=== PATIENT | male | born 1955 | race Caucasian/White ===

== ENCOUNTER 2019-03-10 08:19 | Inpatient (IN) | payer BC ==
--- NOTE | 2019-03-10 08:34 | ED ---
HPI Diabetic - HPI Summary HPI Summary: The patient is a 64 y/o M presenting to [facility] arriving by ambulance as transfer from [facility] with a chief complaint of elevated blood glucose this morning since he woke up as well as chest tightness. When he woke up, he took his blood sugar, and it was around 400. He used medication to help lower the levels, as he usually has hypoglycemia. However, the glucose increased about 50 points after he slept for another 30 minutes, and he was nauseous. He then proceeded to go to the hospital, where his most recent glucose level was measured at 366 with ketones in the blood and a troponin of 0.97. He also has been having intermittent chest tightness for a few days (currently resolved), and some SOB today. He is not currently in any pain. He was given Heparin and Insulin en route and an NTG patch on the right shoulder. There were some T-wave inversions viewed on the EKG at [place]. Hx of HTN and DM, no HLD. - History Of Current Complaint Hx Obtained From: Patient Onset/Duration: Sudden Onset, Lasting Hours, Still Present Timing: Hours Severity Initially: Moderate Severity Currently: Moderate Character: Alert Aggravating: Nothing Alleviating: Nothing Associated Signs & Symptoms: Nausea, Shortness of Breath Related History: Compliant - Allergies/Home Medications Allergies/Adverse Reactions: Allergies Allergy/AdvReac Type Severity Reaction Status Date / Time No Known Allergies Allergy Verified 03/10/19 08:44 Home Medications: Home Medications Doxazosin TAB* [Cardura TAB*] 8 mg PO DAILY 03/10/19 [History Confirmed 03/10/19 ] Insulin Glargine (Nf) [Toujeo Solostar Pen (NF)] 90 unit SC QAM 03/10/19 [ History Confirmed 03/10/19] Levothyroxine Sodium [Levoxyl] 175 mcg PO QAM 03/10/19 [History Confirmed ] Valsartan [Valsartan 320 MG] 320 mg PO DAILY 03/10/19 [History Confirmed ] metFORMIN* [Glucophage 500 MG TAB *] 500 mg PO BID 03/10/19 [History Confirmed 03/10/19] PMH/Surg Hx/FS Hx/Imm Hx Endocrine/Hematology History: Reports: Hx Diabetes Cardiovascular History: Reports: Hx Hypertension Denies: Hx Hypercholesterolemia, Hx Myocardial Infarction - Family History Known Family History: Positive: Hypertension - Social History Hx Substance Use: No Hx Tobacco Use: No Do You Chew or Dip Tobacco: No Have You Chewed or Dipped Tobacco in the LAST YEAR: No Review of Systems Positive: Other - high blood glucose Positive: Chest Pain - tightness Positive: Shortness Of Breath Positive: Nausea All Other Systems Reviewed And Are Negative: Yes Physical Exam - Summary Physical Exam Summary: VITAL SIGNS: Reviewed. GENERAL: Patient is a well-developed and nourished male who is lying comfortable in the stretcher. Patient is not in any acute respiratory distress. HEAD AND FACE: No signs of trauma. No ecchymosis, hematomas or skull depressions. No sinus tenderness. EYES: PERRLA, EOMI x 2, No injected conjunctiva, no nystagmus. EARS: Hearing grossly intact. Ear canals and tympanic membranes are within normal limits. MOUTH: Oropharynx within normal limits. NECK: Supple, trachea is midline, no adenopathy, no JVD, no carotid bruit, no c- spine tenderness, neck with full ROM. CHEST: Symmetric, no tenderness at palpation LUNGS: Clear to auscultation bilaterally. No wheezing or crackles. CVS: Regular rate and rhythm, S1 and S2 present, no murmurs or gallops appreciated. ABDOMEN: Soft, non-tender. No signs of distention. No rebound no guarding, and no masses palpated. Bowel sounds are normal. EXTREMITIES: FROM in all major joints, no edema, no cyanosis or clubbing. NEURO: Alert and oriented x 3. No acute neurological deficits. Speech is normal and follows commands. SKIN: Dry and warm. Triage Information Reviewed: Yes Vital Signs Reviewed: Yes Diagnostics - Laboratory Result Diagrams: 03/10/19 08:54 03/10/19 13:45 Lab Statement: Any lab studies that have been ordered have been reviewed, and results considered in the medical decision making process. - Radiology CXR Radiology Interpretation Completed By: Radiologist Summary of Radiographic Findings: (from [facility]) No acute process. ED physician has reviewed this report. - EKG 0823 Cardiac Rate: NL - 96 BPM EKG Rhythm: Sinus Rhythm EKG Comparison: No Significant Change - Similar to EKG taken on 03/10/2019 at [facility] Summary of EKG Findings: T wave inversions in V2, V3, avF. ST depressions in V4 , V5, V6. No ST elevations. Re-Evaluation - Re-Evaluation First Eval Re-Evaluation Time: 10:15 Comment: I spoke with the patient concerning admission to the hospital based on findings of the patient's case. Diabetic Course/Dx - Course Assessment/Plan: This patient was transferred from [facility] with a diagnosis of DKA an increased troponin without any chest pain. Past medical history significant for insulin-dependent diabetes and hypertension. Chest x- ray impression at [facility]: No acute pathology. Blood work without any significant abnormality except for WBCs of 13.1, glucose of 429, BUN of 29, creatinine of 1.5, sodium of 127, chloride of 97, CO2 of 10, anion gap of 20, calcium of 8.8, troponin of 0.970, and he has small ketones. ABG Blood gas shows a pH of 7.11, PCO2 of 24. Patient was given IV fluids and insulin; he was placed on an insulin drip and a heparin drip. The patient also was given aspirin. At this time I discussed my physical exam, findings and test results from [place] with Dr. King from the intensive care unit and she will consult for this patient. At this point we will continue with the insulin drip and a heparin drip. I ordered blood work and will continue with IV fluids. Dr. King saw and examined patient and she recommends admission to the hospitalist. I discussed my physical exam, findings and test results with Dr. Melchor from the hospitalist services and he agrees to admit patient to his services. Patient is hemodynamically stable alert and oriented x 3. - Diagnoses Provider Diagnoses: DKA (diabetic ketoacidoses), Elevated troponin, NSTEMI (non-ST elevated myocardial infarction) - Physician Notifications Discussed Care Of Patient With: Monet King - department secretary Time Discussed With Above Provider: 08:40 Instructed by Provider To: Other - I discussed the patient with Dr. King due to findings at [facility] and [facility] thus far. Dr. King will come see the patient in the ED. In the ED at 1000, Dr. Young thinks it's best if the patient is admitted. I spoke with Dr. Melchor, hospitalist, at 1010, and he accepts the patient for admission. - Critical Care Time Critical Care Time: 75-104 min Discharge - Sign-Out/Discharge Documenting (check all that apply): Patient Departure - Patient is admitted to [facility] for further care by Dr. Melchor. Patient Received Moderate/Deep Sedation with Procedure: No - Discharge Plan Condition: Stable Disposition: ADMITTED TO [facility] - Billing Disposition and Condition Condition: STABLE Disposition: Admitted to [facility] - Attestation Statements Document Initiated by Valentina: Yes Documenting Scribe: Iveth Conley Provider For Whom Valentina is Documenting (Include Credential): Dr. Jhonny Power MD Scribe Attestation: Iveth Veronica scribed for Dr. Jhonny Power MD on 03/10/19 at 1548. Scribe Documentation Reviewed: Yes Provider Attestation: The documentation as recorded by the Iveth kapadia accurately reflects the service I personally performed and the decisions made by me, Dr. Jhonny Power MD Status of Scribe Document: Viewed
--- OUTSIDE RECORDS SUMMARY | 2019-03-10 08:34 | XMS REPORT | Continuity of Care Document ---
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 Payers Date Identification Numbers Payment Provider Subscriber Effective: 2007 Policy Number: [id number] [facility] Leroy Kimble Group Name: [facility] [address] PayID: [id number] [place] [address] Problems Active Problems Provider Date Type II diabetes mellitus uncontrolled Onset: 05/30/2012 Essential hypertension Onset: 05/30/2012 Benign essential hypertension Onset: 09/04/2011 Hypothyroidism Onset: 09/04/2011 Hyperlipidemia Onset: 09/04/2011 Resolved Problems Anemia Onset: 05/30/2012 Resolved: 12/22/2015 Atypical depressive disorder Onset: 05/30/2012 Resolved: 12/22/2015 Anxiety state Onset: 09/04/2011 Resolved: 12/22/2015 Family History Date Family Member(s) Observation Comments Father due to Diabetes () Mother due to Heart Disease () Social History Type Date Description Comments Sex Unknown Marital Status Lives With Occupation [employer] ETOH Use Occasionally consumes alcohol Tobacco Use Start: Unknown End: Unknown Patient is a former smoker Smoking Status Reviewed: 03/04/19 Patient is a former smoker Medications Active Medications SIG Qnty Indications Ordering Date Provider Metformin HCL 1 by mouth 60tabs E11.9 Igor 03/04/2019 500mg twice a day MD Nancy Tablets Vitamin Deficiency once monthly at 3units Igor 07/02/2018 Injectable System-B12 doctor's MD Nancy 1000mcg/ML Kit Doxazosin Mesylate 1 by mouth 30tabs I10 Igor 04/23/2018 8mg every day MD Nancy Tablets Valsartan 1 by mouth 90tabs I10 Igor 05/29/2017 320mg Tablets every day MD Nancy Cialis 1 as needed 6tabs N52.9 Igor 05/29/2017 20mg Tablets MD Nancy Todebbie Solostar 90 u daily, dx 27units E11.40 Igor 09/22/2015 e11.40, 90 day MD Nancy 300Unit/ML Solution supply Pen-Inject Onetouch Ultrasoft use to test 300units Igor 04/07/2015 Lancets blood glucose MD Nancy Misc three times a day and as needed Onetouch Ultra Blue test twice a 300units Igor 04/07/2015 day and as MD Nancy Strips needed Novolog Flexpen 6 units with 30ml E11.9 Igor 11/23/2011 each light MD Nancy 100Unit/ML Solution meal, 8 u with Pen-Inject heavy meals and also the sliding scale coverage, 90 day supply Levothyroxine Sodium take 1 tablet 90tabs E03.9 Igor 09/04/2011 by mouth once MD Nancy 175mcg Tablets daily History Medications Trulicity inject once a week 2units E11.40 Igor 04/23/2018 - MD Nancy 03/04/2019 0.75mg/0.5ML Solution Pen-Inject Viagra use as needed 8tabs N52.9 Igor 02/06/2017 - 100mg daily MD Nancy 05/29/2017 Tablets Azithromycin 2 now and 1 daily 6tabs J06.9 [place] 07/26/2016 - x 4 days MD Nancy 07/27/2016 250mg Tablets Doxazosin Mesylate 1 by mouth every 90tabs I10 Igor 04/27/2016 - day MD Nancy 04/23/2018 4mg Tablets Amoxicillin/Clavul 1 tid 30tabs J20.9 Igor 12/27/2015 - anate Potassium MD Nancy 07/27/2016 875-125mg Tablets Doxazosin Mesylate 1 by mouth every 30tabs I10 Igor 09/22/2015 - carolyn Cruz MD 04/27/2016 2mg Tablets Lisinopril-Hydroch take one tablet by 90tabs I10 Igor 04/07/2015 - lorothiazide mouth daily. MD Nancy 05/29/2017 20-25mg Tablets Bydureon inject 2 mg under 4units 250.02 Igor 12/08/2014 - 2mg Srer the skin once once MD Nancy 01/25/2015 weekly Potassium Chloride 1 twice a day 180tabs Igor 11/10/2014 - ER MD Nancy 05/29/2017 20Meq Tablets ER Lantus Solostar inject 40 units 5units E11.40 Igor 10/19/2014 - every morning and MD Nancy 09/22/2015 100Unit/ML 40 units every Solution evening Pen-Inject Doxazosin Mesylate 1 by mouth every 90tabs I10 Igor 08/03/2014 - day MD Nancy 09/22/2015 1mg Tablets Clotrimazole/Betam use three times a 45units 110.3 Igor 08/03/2014 - ethasone day until clear at MD Nancy 04/07/2015 Dipropionate least 2 weeks 1-0.05% Cream Lantus Solostar 45u in in the 25units 250.02 Igor 10/16/2012 - morning 50u in at MD Nancy 10/19/2014 100Unit/ML night Solution Pen-Inject Victoza 1.8 unit injection 250.02 Igor 08/28/2012 - 18mg/3ML subcutaneous every MD Nancy 01/01/2013 Solution morning Pen-Inject Metoprolol 1 po qd 90tabs 401.9 Igor 06/24/2012 - Succinate ER MD Nnacy 08/04/2013 50mg Tablets ER 24HR Levemir Flextouch 40 units at 15units 250.02 Igor 03/13/2012 - bedtime MD Nancy 10/16/2012 100Unit/ML Solution Pen-Inject Levemir Flextouch 20 units at hs 250.02 Igor 01/03/2012 - MD Nancy 03/13/2012 100Unit/ML Solution Pen-Inject Levemir Flextouch 10 units at hs 250.02 Igor 11/30/2011 - MD Nancy 01/03/2012 100Unit/ML Solution Pen-Inject Metformin HCL 1 po bid 60tabs 250.00 Igor 11/23/2011 - MD Nancy 11/30/2011 500mg Tablets Sertraline HCL 1 qd 90tabs 300.00 Igor 11/20/2011 - MD Nancy 08/04/2013 50mg Tablets Lisinopril-Hydroch take one tablet by 90tabs 401.9 Igor 09/04/2011 - lorothiazide mouth daily. MD Nancy 04/07/2015 20-25mg Tablets Ibuprofen take 1 tablet Unknown - 600mg three times a day 05/29/2017 Tablets if needed for pain Medications Administered in Office Medication SIG Qnty Indications Ordering Provider Date -12 Injection Nurse Schedule Loc 73 01/24/2019 Injection B12 Provided By Patient Igor Cruz MD 12/03/2018 Injection Immunizations CPT Code Status Date Vaccine Lot # [id number] Given 05/30/2018 Tdap - Tetanus/Diptheria/Acellular Pertussis 50452 Given 02/17/2013 Pneumonia Vaccine [id number] Given 10/29/2006 Tdap - Tetanus/Diptheria/Acellular Pertussis Vital Signs Date Vital Result Comment 03/04/2019 2:14pm Weight 204.00 lb BP Systolic 222 mmHg missed b/p med BP Diastolic 192 mmHg missed b/p med 03/03/2019 11:57am Weight 198.00 lb BP Systolic 184 mmHg BP Diastolic 120 mmHg 12/03/2018 4:05pm Weight 205.00 lb BP Systolic 168 mmHg BP Diastolic 88 mmHg 09/02/2018 4:33pm Weight 201.00 lb 05/30/2018 4:19pm Height 71.25 inches Weight 195.00 lb Heart Rate 64 /min BP Systolic 122 mmHg BP Diastolic 72 mmHg Respiratory Rate 16 /min BMI (Body Mass Index) 27.0 kg/m2 04/23/2018 4:09pm Weight 199.00 lb BP Systolic 150 mmHg BP Diastolic 86 mmHg 03/12/2018 4:13pm Weight 202.00 lb Heart Rate 72 /min BP Systolic 146 mmHg BP Diastolic 102 mmHg Respiratory Rate 16 /min 12/11/2017 3:55pm Weight 202.00 lb BP Systolic 170 mmHg BP Diastolic 92 mmHg 09/03/2017 5:13pm Weight 206.00 lb BP Systolic 186 mmHg BP Diastolic 112 mmHg 05/29/2017 4:28pm Height 71 inches Weight 204.00 lb Heart Rate 68 /min BP Systolic 138 mmHg BP Diastolic 96 mmHg Respiratory Rate 16 /min Body Temperature 96.7 F BMI (Body Mass Index) 28.4 kg/m2 02/06/2017 4:58pm Height 71 inches Weight 210.00 lb BP Systolic 120 mmHg BP Diastolic 88 mmHg BMI (Body Mass Index) 29.3 kg/m2 11/08/2016 4:05pm Weight 207.00 lb BP Systolic 150 mmHg BP Diastolic 90 mmHg 10/26/2016 4:08pm Weight 205.00 lb BP Systolic 120 mmHg BP Diastolic 90 mmHg 07/27/2016 3:51pm Weight 206.00 lb 07/26/2016 9:29am Weight 204.00 lb BP Systolic 140 mmHg BP Diastolic 90 mmHg Body Temperature 97.9 F 04/27/2016 3:36pm Height 71 inches Weight 202.00 lb Heart Rate 77 /min BP Systolic 140 mmHg BP Diastolic 90 mmHg Body Temperature 97.0 F BMI (Body Mass Index) 28.2 kg/m2 12/22/2015 4:15pm Weight 211.00 lb BP Systolic 138 mmHg BP Diastolic 88 mmHg 09/22/2015 4:09pm Weight 199.00 lb BP Systolic 128 mmHg BP Diastolic 94 mmHg 06/22/2015 4:31pm Weight 198.00 lb BP Systolic 140 mmHg BP Diastolic 88 mmHg 04/07/2015 4:06pm Height 70.50 inches Weight 188.00 lb Heart Rate 76 /min BP Systolic 120 mmHg BP Diastolic 86 mmHg Respiratory Rate 16 /min Body Temperature 97.8 F BMI (Body Mass Index) 26.6 kg/m2 02/25/2015 4:16pm Weight 191.00 lb BP Systolic 130 mmHg BP Diastolic 80 mmHg 01/25/2015 5:12pm Weight 194.00 lb BP Systolic 144 mmHg BP Diastolic 94 mmHg 12/23/2014 4:39pm Weight 198.00 lb BP Systolic 152 mmHg BP Diastolic 100 mmHg 12/08/2014 4:22pm Weight 199.00 lb BP Systolic 138 mmHg BP Diastolic 62 mmHg 11/04/2014 4:10pm Weight 201.00 lb BP Systolic 160 mmHg BP Diastolic 120 mmHg 08/03/2014 4:47pm Weight 201.00 lb BP Systolic 118 mmHg BP Diastolic 88 mmHg 04/06/2014 4:20pm Height 70.75 inches Weight 188.00 lb BP Systolic 120 mmHg BP Diastolic 70 mmHg BMI (Body Mass Index) 26.4 kg/m2 11/24/2013 5:04pm Weight 200.50 lb BP Systolic 130 mmHg BP Diastolic 102 mmHg 10/22/2013 4:31pm Weight 204.00 lb BP Systolic 154 mmHg BP Diastolic 118 mmHg 09/17/2013 4:53pm Weight 205.00 lb BP Systolic 140 mmHg BP Diastolic 102 mmHg 09/03/2013 4:20pm Weight 205.00 lb BP Systolic 140 mmHg BP Diastolic 90 mmHg 08/18/2013 4:20pm Weight 205.00 lb BP Systolic 180 mmHg BP Diastolic 110 mmHg 08/04/2013 5:15pm BP Systolic 150 mmHg BP Diastolic 110 mmHg 07/07/2013 4:50pm Weight 203.00 lb BP Systolic 138 mmHg BP Diastolic 80 mmHg 06/04/2013 4:23pm Weight 196.00 lb BP Systolic 110 mmHg BP Diastolic 80 mmHg 02/17/2013 3:24pm Height 71 inches Weight 194.00 lb Heart Rate 86 /min BP Systolic 110 mmHg BP Diastolic 88 mmHg Respiratory Rate 16 /min Body Temperature 97.4 F BMI (Body Mass Index) 27.1 kg/m2 02/11/2013 4:16pm Height 69.50 inches Weight 199.00 lb BP Systolic 130 mmHg BP Diastolic 80 mmHg BMI (Body Mass Index) 29.0 kg/m2 01/21/2013 4:07pm Height 69.50 inches Weight 196.00 lb BP Systolic 120 mmHg BP Diastolic 82 mmHg BMI (Body Mass Index) 28.5 kg/m2 11/20/2012 3:22pm Weight 187.00 lb 11/20/2012 3:22pm Weight 185.00 lb BP Systolic 110 mmHg BP Diastolic 80 mmHg 10/16/2012 4:24pm Height 69.50 inches Weight 186.00 lb BP Systolic 120 mmHg BP Diastolic 80 mmHg BMI (Body Mass Index) 27.1 kg/m2 09/11/2012 3:48pm Weight 185.00 lb BP Systolic 120 mmHg BP Diastolic 94 mmHg 08/28/2012 4:01pm Height 69.5 inches Weight 190.00 lb BP Systolic 160 mmHg BP Diastolic 100 mmHg BMI (Body Mass Index) 27.7 kg/m2 08/14/2012 3:37pm Weight 184.50 lb BP Systolic 110 mmHg BP Diastolic 82 mmHg 06/24/2012 3:20pm Height 71.25 inches Weight 189.50 lb BP Systolic 142 mmHg BP Diastolic 96 mmHg BMI (Body Mass Index) 26.2 kg/m2 03/13/2012 4:03pm Height 71.25 inches Weight 201.50 lb BP Systolic 138 mmHg BP Diastolic 92 mmHg BMI (Body Mass Index) 27.9 kg/m2 02/12/2012 3:28pm Height 71.25 inches Weight 206.00 lb BP Systolic 128 mmHg BP Diastolic 78 mmHg Body Temperature 96.3 F BMI (Body Mass Index) 28.5 kg/m2 01/03/2012 3:47pm Height 71 inches Weight 203.50 lb BP Systolic 126 mmHg BP Diastolic 84 mmHg BMI (Body Mass Index) 28.4 kg/m2 12/13/2011 3:57pm Height 71 inches Weight 203.50 lb BP Systolic 154 mmHg BP Diastolic 102 mmHg BMI (Body Mass Index) 28.4 kg/m2 11/30/2011 11:19am Height 71 inches Weight 199.50 lb BP Systolic 116 mmHg BP Diastolic 80 mmHg BMI (Body Mass Index) 27.8 kg/m2 11/23/2011 12:01pm Weight 194.50 lb BP Systolic 126 mmHg BP Diastolic 84 mmHg 11/20/2011 5:07pm Height 71 inches Weight 198.00 lb BP Systolic 112 mmHg BP Diastolic 92 mmHg BMI (Body Mass Index) 27.6 kg/m2 11/13/2011 3:55pm Height 71 inches Weight 201.50 lb BP Systolic 120 mmHg BP Diastolic 84 mmHg BMI (Body Mass Index) 28.1 kg/m2 Results Test Date Facility Test Result H/L Range Note Laboratory test 09/02/2018 N2N/CCD Import Glycohemoglobin 8.5 % High 4.2- 6.3 1, 2 finding (A1c) PSA ([place]oci) 7.35 ng/mL 3 Reflex add FT3? Y Reflex add FT4? Y Thyroid Stim Hormone 2.76 uIU/mL 0.3-4.2 Vitamin B12 87 pg/mL Low 193-986 Vitamin D,25-Hydroxy 31.5 ng/mL 30-100 4 eAG 197 mg/dL CBC 09/02/2018 N2N/CCD Import Hematocrit 46.0 % 38-48 Hemoglobin 16.1 gm/dL 12.8-17 Mean Cell Volume 86.8 fl 80-96 Mean Corpuscular HGB 30.4 pg 27-33 Mean Corpuscular HGB Conc 35.0 g/dL 31.7-36 Mean Platelet Volume 10.2 fL 6.6-10.6 Platelet Count 145 K/uL Low 155-360 Red Blood Count 5.30 M/uL 4.2-5.8 Red Cell Distri Width %CV 12.9 % 11.6-15.8 White Blood Count 5.7 K/uL 3.4-10.5 Comprehensive Metabolic Panel 09/02/2018 N2N/CCD Import Alb/Glob 0.8 ratio Albumin 3.5 g/dL 3.4-5 Alkaline Phosphatase 77 U/L 45-117 Anion Gap 5 mEq/L Low 8-16 BUN 13 mg/dL 7-18 BUN/Creat 14.4 ratio Bilirubin,Total 0.8 mg/dL 0.2-1 Calcium 8.2 mg/dL Low 8.5-10.1 Carbon Dioxide 29 mmol/L 21-32 Chloride 104 mmol/L 98-107 Creatinine 0.9 mg/dL 0.6-1.3 Globulin 4.3 g/dL 1.9-4.3 Glom Filtration Rate, Estimate >60 mL/min Glucose 122 mg/dL High 74-106 If >60 mL/min 5 Potassium 3.6 mmol/L 3.5-5.1 Reflex add FT3? Y Reflex add FT4? Y SGPT/Alt 21 U/L 12-78 Sgot/Ast 19 U/L 15-37 Sodium 138 mmol/L 136-145 Total Protein 7.8 g/dL 6.4-8.2 LDL Cholesterol Profile 09/02/2018 N2N/CCD Import Cholesterol 167 mg/dL 6 HDL Cholesterol 62 mg/dL 7 LDL-Cholesterol 81 mg/dL 8 Reflex add FT3? Y Reflex add FT4? Y Triglycerides 122 mg/dL 9 Microalbumin,Random Urine 09/02/2018 N2N/CCD Import Microalbumin,Urine 11.2 mg/L Laboratory test finding 08/30/2018 N2N/[facility] Import Source: Urine, 10 Clean Cat <See Note> Urine Bilirubin - Dipstick Negative Urine Blood Negative Urine Clarity Clear Urine Color Yellow Urine Glucose - Dipstick Negative mg/dL Urine Ketone Negative mg/dL Urine Leuk Esterase Negative Urine Nitrite - Dipstick Negative Urine PH 6.0 1 Low 6.5-7.5 Urine Protein - Dipstick Negative mg/dL Urine Specific [place] 1.020 1 1.01-1.03 Urine Urobilinogen - Dipstick 0.2 E.U./dL 0.2-1 Laboratory test finding 08/30/2018 N2N/CCD Import CK 184 U/L 39-308 11 Troponin-I 0.049 ng/mL 12 CBS W/Automated Diff 08/30/2018 N2N/CCD Import Bas% 0.4 % 0-1.1 Baso # 0.02 K/uL 0-0.1 Eo% 1.3 % 0-6.6 Eos # 0.07 K/uL 0-0.5 Hematocrit 42.8 % 38-48 Hemoglobin 15.0 gm/dL 12.8-17 Lymph # 1.20 K/uL 1-4 Lymph % 21.5 % 20-42 Mean Cell Volume 86.6 fl 80-96 Mean Corpuscular HGB 30.4 pg 27-33 Mean Corpuscular HGB Conc 35.0 g/dL 31.7-36 Mean Platelet Volume 10.2 fL 6.6-10.6 [place]ink[place] # 0.31 K/uL 0-0.8 [place] % 5.6 % 0-10 Neut# 3.97 K/uL 1.8-7 Neut% 71.2 % 33-73 Platelet Count 129 K/uL Low 155-360 Red Blood Count 4.94 M/uL 4.2-5.8 Red Cell Distri Width %CV 13.0 % 11.6-15.8 Red Cell Distri Width SD 39.6 fl 36-51 White Blood Count 5.6 K/uL 3.4-10.5 Comprehensive Metabolic Panel 08/30/2018 N2N/CCD Import Alb/Glob 0.8 ratio Albumin 3.3 g/dL Low 3.4-5 Alkaline Phosphatase 76 U/L 45-117 Anion Gap 6 mEq/L Low 8-16 BUN 10 mg/dL 7-18 BUN/Creat 11.1 ratio Bilirubin,Total 0.5 mg/dL 0.2-1 Calcium 8.1 mg/dL Low 8.5-10.1 Carbon Dioxide 26 mmol/L 21-32 Chloride 102 mmol/L 98-107 Creatinine 0.9 mg/dL 0.6-1.3 Globulin 4.4 g/dL High 1.9-4.3 Glom Filtration Rate, Estimate >60 mL/min Glucose 165 mg/dL High 74-106 If >60 mL/min 13 Potassium 3.5 mmol/L 3.5-5.1 SGPT/Alt 22 U/L 12-78 Sgot/Ast 23 U/L 15-37 Sodium 134 mmol/L Low 136-145 Total Protein 7.7 g/dL 6.4-8.2 Laboratory test 05/30/2018 N2N/CCD Import Glycohemoglobin 7.9 % High 4.2- 6.3 14, 15 finding (A1c) eAG 180 mg/dL Laboratory test 04/23/2018 N2N/CCD Import Glycohemoglobin 8.5 % High 4.2- 6.3 16, 17 finding (A1c) Prostate Specific Antigen 7.20 ng/mL 18 eAG 197 mg/dL Comprehensive Metabolic Panel 04/23/2018 N2N/CCD Import Alb/Glob 0.8 ratio Albumin 3.3 g/dL Low 3.4-5 Alkaline Phosphatase 72 U/L 45-117 Anion Gap 9 mEq/L 8-16 BUN 16 mg/dL 7-18 BUN/Creat 20.0 ratio Bilirubin,Total 0.6 mg/dL 0.2-1 Calcium 8.2 mg/dL Low 8.5-10.1 Carbon Dioxide 25 mmol/L 21-32 Chloride 105 mmol/L 98-107 Creatinine 0.8 mg/dL 0.6-1.3 Globulin 4.1 g/dL 1.9-4.3 Glom Filtration Rate, Estimate >60 mL/min Glucose 95 mg/dL 74-106 If >60 mL/min 19 Potassium 3.7 mmol/L 3.5-5.1 SGPT/Alt 26 U/L 12-78 Sgot/Ast 32 U/L 15-37 Sodium 139 mmol/L 136-145 Total Protein 7.4 g/dL 6.4-8.2 Vitamin B12 And 04/23/2018 N2N/CCD Import Folic Acid > 20.0 ng/mL High 3.1-17.5 Folate Vitamin B12 73 pg/mL Low 193-986 Laboratory test 03/12/2018 N2N/CCD Import Glycohemoglobin 8.4 % High 4.2- 6.3 20, 21 finding (A1c) eAG 194 mg/dL Comprehensive Metabolic Panel 03/12/2018 N2N/CCD Import Alb/Glob 0.9 ratio Albumin 3.5 g/dL 3.4-5 Alkaline Phosphatase 74 U/L 45-117 Anion Gap 6 mEq/L Low 8-16 BUN 14 mg/dL 7-18 BUN/Creat 20.0 ratio Bilirubin,Total 0.5 mg/dL 0.2-1 Calcium 8.4 mg/dL Low 8.5-10.1 Carbon Dioxide 28 mmol/L 21-32 Chloride 107 mmol/L 98-107 Creatinine 0.7 mg/dL 0.6-1.3 Globulin 4.1 g/dL 1.9-4.3 Glom Filtration Rate, Estimate >60 mL/min Glucose 71 mg/dL Low 74-106 If >60 mL/min 22 Potassium 3.5 mmol/L 3.5-5.1 SGPT/Alt 25 U/L 12-78 Sgot/Ast 25 U/L 15-37 Sodium 141 mmol/L 136-145 Total Protein 7.6 g/dL 6.4-8.2 Vitamin B12 And Folate 03/12/2018 N2N/CCD Import Folic Acid 17.4 ng/mL 3.1-17.5 Vitamin B12 < 60 pg/mL Low 193-986 Laboratory test 09/03/2017 N2N/CCD Import Glycohemoglobin 8.6 % High 4.2- 6.3 23, 24 finding (A1c) PSA ([place] Loci) 6.91 ng/mL 25 Reflex add FT4? Y Thyroid Stim Hormone 0.62 uIU/mL 0.3-4.2 Vitamin B12 < 60 pg/mL Low 193-986 eAG 200 mg/dL CBC 09/03/2017 N2N/CCD Import Hematocrit 43.7 % 38-48 Hemoglobin 15.4 gm/dL 12.8-17 Mean Cell Volume 83.1 fl 80-96 Mean Corpuscular HGB 29.3 pg 27-33 Mean Corpuscular HGB Conc 35.2 g/dL 31.7-36 Mean Platelet Volume 10.6 fL 6.6-10.6 Platelet Count 135 K/uL Low 150-400 Red Blood Count 5.26 M/uL 4.2-5.8 Red Cell Distri Width %CV 12.6 % 11.6-15.8 White Blood Count 5.9 K/uL 3.4-10.5 Comprehensive Metabolic Panel 09/03/2017 N2N/CCD Import Alb/Glob 0.8 ratio Albumin 3.4 g/dL 3.4-5 Alkaline Phosphatase 82 U/L 45-117 Anion Gap 7 mEq/L Low 8-16 BUN 11 mg/dL 7-18 BUN/Creat 15.7 ratio Bilirubin,Total 0.5 mg/dL 0.2-1 Calcium 8.4 mg/dL Low 8.5-10.1 Carbon Dioxide 26 mmol/L 21-32 Chloride 106 mmol/L 98-107 Creatinine 0.7 mg/dL 0.6-1.3 Globulin 4.4 g/dL High 1.9-4.3 Glom Filtration Rate, Estimate >60 mL/min Glucose 97 mg/dL 74-106 If >60 mL/min 26 Potassium 3.4 mmol/L Low 3.5-5.1 Reflex add FT4? Y SGPT/Alt 23 U/L 12-78 Sgot/Ast 21 U/L 15-37 Sodium 139 mmol/L 136-145 Total Protein 7.8 g/dL 6.4-8.2 LDL Cholesterol Profile 09/03/2017 N2N/CCD Import Cholesterol 151 mg/dL 27 HDL Cholesterol 53 mg/dL 28 LDL-Cholesterol 81 mg/dL 29 Reflex add FT4? Y Triglycerides 84 mg/dL 30 Microalbumin,Random 09/03/2017 N2N/[facility] Import Microalbumin,Urine 21.6 Urine mg/L Laboratory test finding 10/26/2016 N2N/CCD Import Glycohemoglobin (A1c) 7.9 % High 4.2 31, -6. 32 3 Thyroid Stim Hormone 1.76 uIU/mL 0.3-4.2 eAG 180 mg/dL Comprehensive Metabolic Panel 10/26/2016 N2N/[facility] Import Alb/Glob 0.8 ratio Albumin 3.4 g/dL 3.4-5 Alkaline Phosphatase 86 U/L 45-117 Anion Gap 5 mEq/L Low 8-16 BUN 17 mg/dL 7-18 BUN/Creat 17.0 ratio Bilirubin,Total 0.6 mg/dL 0.2-1 Calcium 8.3 mg/dL Low 8.5-10.1 Carbon Dioxide 32 mmol/L 21-32 Chloride 102 mmol/L 98-107 Creatinine 1.0 mg/dL 0.6-1.3 Globulin 4.4 g/dL High 1.9-4.3 Glom Filtration Rate, Estimate >60 mL/min Glucose 55 mg/dL Low 74-106 If >60 mL/min 33 Potassium 3.3 mmol/L Low 3.5-5.1 SGPT/Alt 20 U/L 12-78 Sgot/Ast 17 U/L 15-37 Sodium 139 mmol/L 136-145 Total Protein 7.8 g/dL 6.4-8.2 Microalbumin,Random Urine 10/26/2016 N2N/CCD Import Microalbumin,Urine 33.9 mg/L Laboratory test finding 07/26/2016 N2N/CCD Import @[facility] Pat Id: [id number] @[facility] Req #: [id number] 1 Glycohemoglobin (A1c) 8.6 % High 4.2-6.3 35 eAG 200 mg/dL Laboratory test 04/27/2016 N2N/CCD Import Glycohemoglobin (A1c) 9.0 % High 4.2-6.3 36 finding Microalbumin,Random Urine 20.7 mg/L eAG 212 mg/dL Comprehensive Metabolic Panel 04/27/2016 N2N/CCD Import Alb/Glob 0.8 ratio Albumin 3.5 g/dL 3.4-5 Alkaline Phosphatase 100 U/L 45-117 Anion Gap 6 mEq/L Low 8-16 BUN 10 mg/dL 7-18 BUN/Creat 11.1 ratio Bilirubin,Total 0.6 mg/dL 0.2-1 Calcium 8.2 mg/dL Low 8.5-10.1 Carbon Dioxide 29 mmol/L 21-32 Chloride 102 mmol/L 98-107 Creatinine 0.9 mg/dL 0.6-1.3 Globulin 4.5 g/dL High 1.9-4.3 Glom Filtration Rate, Estimate >60 mL/min Glucose 72 mg/dL Low 74-106 If >60 mL/min 37 Potassium 3.3 mmol/L Low 3.5-5.1 SGPT/Alt 24 U/L 12-78 Sgot/Ast 17 U/L 15-37 Sodium 137 mmol/L 136-145 Total Protein 8.0 g/dL 6.4-8.2 LDL Cholesterol Profile 04/27/2016 N2N/CCD Import Cholesterol 160 mg/dL 38 HDL Cholesterol 53 mg/dL 39 LDL-Cholesterol 92 mg/dL 40 Triglycerides 74 mg/dL 41 Laboratory test 06/22/2015 N2N/CCD Import Microalbumin,Random 13.0 mg/L finding Urine Laboratory test 06/22/2015 N2N/CCD Import Glycohemoglobin (A1c) 8.9 % High 4.2-6 42 finding .3 Vitamin B12 111 pg/mL Low 193-986 43 eAG 209 mg/dL CBC W/Automated Diff 06/22/2015 N2N/CCD Import Bas% 0.6 % 0.1-1 Baso # 0.03 K/uL Low 0.1-0.2 Eo% 5.4 % High 0-5 Eos # 0.29 K/uL 0-0.5 Hematocrit 43.0 % 38-48 Hemoglobin 15.1 gm/dL 12.8-17 Lymph # 1.42 K/uL Low 1.8-7 Lymph % 26.4 % 17-56 Mean Cell Volume 82.7 fl 80-96 Mean Corpuscular HGB 29.0 pg 27-33 Mean Corpuscular HGB Conc 35.1 g/dL 31.7-36 Mean Platelet Volume 10.3 fL 6.6-10.6 Winkler # 0.32 K/uL 0-0.8 Winkler % 6.0 % 0-10 Neut# 3.31 K/uL 1.8-7 Neut% 61.6 % 33-73 Platelet Count 140 K/uL Low 150-400 Red Blood Count 5.20 M/uL 4.2-5.8 Red Cell Distri Width %CV 14.1 % 11.6-15.8 Red Cell Distri Width SD 41.7 fl 36-51 White Blood Count 5.4 K/uL 3.4-10.5 Comprehensive Metabolic Panel 06/22/2015 N2N/CCD Import Alb/Glob 0.7 ratio Albumin 3.3 g/dL Low 3.4-5 Alkaline Phosphatase 80 U/L 45-117 Anion Gap 2 mEq/L Low 8-16 BUN 13 mg/dL 7-18 BUN/Creat 14.4 ratio Bilirubin,Total 0.4 mg/dL 0.2-1 Calcium 7.8 mg/dL Low 8.5-10.1 Carbon Dioxide 31 mmol/L 21-32 Chloride 104 mmol/L 98-107 Creatinine 0.9 mg/dL 0.6-1.3 Globulin 4.7 g/dL High 1.9-4.3 Glom Filtration Rate, Estimate >60 mL/min Glucose 69 mg/dL Low 74-106 If >60 mL/min 44 Potassium 3.4 mmol/L Low 3.5-5.1 SGPT/Alt 24 U/L 12-78 Sgot/Ast 20 U/L 15-37 Sodium 137 mmol/L 136-145 Total Protein 8.0 g/dL 6.4-8.2 LDL Cholesterol Profile 06/22/2015 N2N/CCD Import Cholesterol 170 mg/dL 45 HDL Cholesterol 55 mg/dL 46 LDL-Cholesterol 99 mg/dL 47 Triglycerides 82 mg/dL 48 Laboratory test 02/24/2015 N2N/CCD Import Glycohemoglobin (A1c) 8.7 % High 4.2-6.3 49 finding eAG 203 mg/dL Laboratory test 12/08/2014 N2N/CCD Import Glycohemoglobin (A1c) 8.9 % High 4.2-6.3 50 finding eAG 209 mg/dL Laboratory test 11/03/2014 N2N/CCD Import Glycohemoglobin (A1c) 10.4 % High 4.2-6.3 51 finding Microalbumin,Random Urine < 5.0 mg/L 52 Vitamin B12 115 pg/mL Low 193-986 53 eAG 252 mg/dL CBC W/Automated Diff 11/03/2014 N2N/CCD Import Bas% 0.4 % 0.1-1 Baso # 0.02 K/uL Low 0.1-0.2 Eo% 3.3 % 0-5 Eos # 0.16 K/uL 0-0.5 Hematocrit 37.5 % Low 38-48 Hemoglobin 13.3 gm/dL 12.8-17 Lymph # 1.34 K/uL 1.2-4 Lymph % 27.3 % 17-56 Mean Cell Volume 81.2 fl 80-96 Mean Corpuscular HGB 28.8 pg 27-33 Mean Corpuscular HGB Conc 35.5 g/dL 31.7-36 Mean Platelet Volume 10.5 fL 6.6-10.6 Winkler # 0.29 K/uL 0-0.6 Winkler % 5.9 % 0-10 Neut# 3.09 K/uL 1.8-7 Neut% 63.1 % 33-73 Platelet Count 120 K/uL Low 150-400 Red Blood Count 4.62 M/uL 4.2-5.8 Red Cell Distri Width %CV 13.0 % 11.6-15.8 Red Cell Distri Width SD 37.0 fl 36-51 White Blood Count 4.9 K/uL 3.4-10.5 Comprehensive Metabolic Panel 11/03/2014 [facility] Import Alb/Glob 0.9 ratio Albumin 3.6 g/dL 3.4-5 Alkaline Phosphatase 104 U/L 45-117 Anion Gap 6 mEq/L Low 8-16 BUN 12 mg/dL 7-18 BUN/Creat 13.3 ratio Bilirubin,Total 0.4 mg/dL 0.2-1 Calcium 8.5 mg/dL 8.5-10.1 Carbon Dioxide 31 mmol/L 21-32 Chloride 103 mmol/L 98-107 Creatinine 0.9 mg/dL 0.6-1.3 Globulin 4.1 g/dL 1.9-4.3 Glom Filtration Rate, Estimate >60 mL/min Glucose 93 mg/dL 74-106 If >60 mL/min 54 Potassium 3.3 mmol/L Low 3.5-5.1 SGPT/Alt 29 U/L 12-78 Sgot/Ast 20 U/L 15-37 Sodium 137 mmol/L 136-145 Total Protein 7.7 g/dL 6.4-8.2 LDL Cholesterol Profile 11/03/2014 [facility] Import Cholesterol 157 mg/dL 55 HDL Cholesterol 46 mg/dL 56 LDL-Cholesterol 99 mg/dL 57 Triglycerides 60 mg/dL 58 Laboratory test 04/06/2014 [facility] Import Glycohemoglobin (A1c) 8.4 % High 4.8-6 59 finding Prostate Specific Antigen 6.25 ng/mL High 0-4 60 eAG 194 mg/dL Comprehensive Metabolic Panel 04/06/2014 [facility] Import Alb/Glob 0.9 ratio Albumin 3.8 g/dL 3.5-5 Alkaline Phosphatase 104 U/L 50-136 Anion Gap 9 mEq/L 8-16 BUN 13 mg/dL 5-23 BUN/Creat 18.5 ratio Bilirubin,Total 0.6 mg/dL 0.2-1.2 Calcium 9.1 mg/dL 8.5-10.1 Carbon Dioxide 28 mEq/L 18-29 Chloride 106 mmol/L 98-107 Creatinine 0.7 mg/dL 0.5-1.4 Globulin 4.3 g/dL 1.9-4.3 Glom Filtration Rate, Estimate >60 mL/min Glucose 102 mg/dL 76-115 If >60 mL/min 61 Potassium 3.6 mmol/L 3.5-5.1 SGPT/Alt 32 U/L 30-65 Sgot/Ast 26 U/L 16-40 Sodium 139 mmol/L 136-145 Total Protein 8.1 g/dL High 6.3-8 LDL Cholesterol Profile 04/06/2014 [facility] Import Cholesterol 172 mg/dL 120-200 HDL Cholesterol 64 mg/dL 29-83 LDL-Cholesterol 101 mg/dL 62-185 Triglycerides 36 mg/dL 16-231 Laboratory 04/06/2014 N2N/CCD Import Microalbumin,Random 22.2 mg/L High 0 -18.5 test finding Urine Laboratory 03/12/2014 N2N/[facility] Import Act Partial Thrombo 33.6 s 23.9- 34.3 62 test finding Time Urinalysis 03/12/2014 N2N/[facility] Import Urine Bacteria Very Few With [place] Microscopic Urine Bilirubin - Dipstick Negative Urine Blood Large High Urine Clarity SL Cloudy Urine Color Red Urine Epithelial Cells Very Few [place]/lpf Urine Glucose - Dipstick >=1000 mg/dL High Urine Ketone Negative mg/dL Urine Leuk Esterase Negative Urine Nitrite - Dipstick Negative Urine PH 6.0 1 Low 6.5-7.5 Urine Protein - Dipstick Trace mg/dL Urine RBC TNTC rbc/hpf High 0-7 Urine Specific [place] 1.025 1 1.01-1.03 Urine Urobilinogen - Dipstick 0.2 E.U./dL 0.2-1 Urine WBC None Seen wbc/hpf 0-7 CBC W/Automated Diff 03/12/2014 N2N/[facility] Import Bas% 0.3 % 0.1-1 Baso # 0.02 K/uL Low 0.1-0.2 Eo% 2.8 % 0-5 Eos # 0.16 K/uL 0-0.5 Hematocrit 41.2 % 38-48 Hemoglobin 14.4 gm/dL 12.8-17 Lymph # 2.06 K/uL 1.2-4 Lymph % 36.0 % 17-56 Mean Cell Volume 81.3 fl 80-96 Mean Corpuscular HGB 28.4 pg 27-33 Mean Corpuscular HGB Conc 35.0 g/dL 31.7-36 Mean Platelet Volume 10.8 fL High 6.6-10.6 Winkler # 0.31 K/uL 0-0.6 Winkler % 5.4 % 0-10 Neut# 3.17 K/uL 1.8-7 Neut% 55.5 % 33-73 Platelet Count 125 K/uL Low 150-400 Red Blood Count 5.07 M/uL 4.2-5.8 Red Cell Distri Width %CV 12.5 % 11.6-15.8 Red Cell Distri Width SD 36.3 fl 36-51 White Blood Count 5.7 K/uL 3.4-10.5 Chlamydia/GC Karen, 03/12/2014 N2N/CCD Import Chlamydia Negative Urine Trachomatis,Ur -Karen Neisseria Gonorrhoeae,Ur -Karen Negative Urine note: See Note 63 Comprehensive Metabolic Panel 03/12/2014 N2N/CCD Import Alb/Glob 0.9 ratio Albumin 3.5 g/dL 3.5-5 Alkaline Phosphatase 105 U/L 50-136 Anion Gap 7 mEq/L Low 8-16 BUN 14 mg/dL 5-23 BUN/Creat 15.5 ratio Bilirubin,Total 0.3 mg/dL 0.2-1.2 Calcium 8.8 mg/dL 8.5-10.1 Carbon Dioxide 30 mEq/L High 18-29 Chloride 103 mmol/L 98-107 Creatinine 0.9 mg/dL 0.5-1.4 Globulin 4.0 g/dL 1.9-4.3 Glom Filtration Rate, Estimate >60 mL/min Glucose 342 mg/dL High 76-115 If >60 mL/min 64 Potassium 4.0 mmol/L 3.5-5.1 SGPT/Alt 27 U/L Low 30-65 Sgot/Ast 18 U/L 16-40 Sodium 136 mmol/L 136-145 Total Protein 7.5 g/dL 6.3-8 Protime 03/12/2014 N2N/CCD Import Inr 1.1 1 0.9-1.1 65 Protime 14.1 s 12.1-14.9 Laboratory test finding 03/12/2014 N2N/CCD Import Urine Culture See Note 66 Urine Screen See Note 67 Urine Screen 03/11/2014 N2N/CCD Import Urine Bilirubin - Dipstick Negative Urine Blood Negative Urine Clarity Clear Urine Color Yellow Urine Glucose - Dipstick >=1000 mg/dL High Urine Ketone Negative mg/dL Urine Leuk Esterase Negative Urine Nitrite - Dipstick Negative Urine PH 5.5 1 Low 6.5-7.5 Urine Protein - Dipstick Negative mg/dL Urine Specific [place] >=1.030 1.01-1.03 Urine Urobilinogen - Dipstick 0.2 E.U./dL 0.2-1 Comprehensive Metabolic Panel 03/11/2014 N2N/CCD Import Alb/Glob 0.9 ratio Albumin 3.5 g/dL 3.5-5 Alkaline Phosphatase 82 U/L 50-136 Anion Gap 5 mEq/L Low 8-16 BUN 12 mg/dL 5-23 BUN/Creat 13.3 ratio Bilirubin,Total 0.4 mg/dL 0.2-1.2 Calcium 8.7 mg/dL 8.5-10.1 Carbon Dioxide 30 mEq/L High 18-29 Chloride 106 mmol/L 98-107 Creatinine 0.9 mg/dL 0.5-1.4 Globulin 4.0 g/dL 1.9-4.3 Glom Filtration Rate, Estimate >60 mL/min Glucose 224 mg/dL High 76-115 If >60 mL/min 68 Potassium 4.0 mmol/L 3.5-5.1 SGPT/Alt 25 U/L Low 30-65 Sgot/Ast 18 U/L 16-40 Sodium 137 mmol/L 136-145 Total Protein 7.5 g/dL 6.3-8 CBC W/Automated Diff 03/11/2014 N2N/CCD Import Bas% 0.5 % 0.1-1 Baso # 0.03 K/uL Low 0.1-0.2 Eo% 2.3 % 0-5 Eos # 0.13 K/uL 0-0.5 Hematocrit 42.8 % 38-48 Hemoglobin 15.1 gm/dL 12.8-17 Lymph # 1.67 K/uL 1.2-4 Lymph % 30.1 % 17-56 Mean Cell Volume 81.5 fl 80-96 Mean Corpuscular HGB 28.8 pg 27-33 Mean Corpuscular HGB Conc 35.3 g/dL 31.7-36 Mean Platelet Volume 10.5 fL 6.6-10.6 Winkler # 0.32 K/uL 0-0.6 Winkler % 5.8 % 0-10 Neut# 3.40 K/uL 1.8-7 Neut% 61.3 % 33-73 Platelet Count 129 K/uL Low 150-400 Red Blood Count 5.25 M/uL 4.2-5.8 Red Cell Distri Width %CV 12.5 % 11.6-15.8 Red Cell Distri Width SD 36.7 fl 36-51 White Blood Count 5.6 K/uL 3.4-10.5 Comprehensive Metabolic Panel 10/21/2013 N2N/[facility] Import Alb/Glob 1.1 ratio Albumin 4.0 g/dL 3.5-5 Alkaline Phosphatase 94 U/L 50-136 Anion Gap 4 mEq/L Low 8-16 BUN 11 mg/dL 5-23 BUN/Creat 13.7 ratio Bilirubin,Total 0.4 mg/dL 0.2-1.2 Calcium 8.7 mg/dL 8.5-10.1 Carbon Dioxide 35 mEq/L High 18-29 Chloride 105 mmol/L 98-107 Creatinine 0.8 mg/dL 0.5-1.4 Globulin 3.8 g/dL 1.9-4.3 Glom Filtration Rate, Estimate >60 mL/min Glucose 54 mg/dL Low 76-115 If >60 mL/min 69 Potassium 3.7 mmol/L 3.5-5.1 SGPT/Alt 30 U/L 30-65 Sgot/Ast 16 U/L 16-40 Sodium 140 mmol/L 136-145 Total Protein 7.8 g/dL 6.3-8 Laboratory test 10/21/2013 N2N/[facility] Import Glycohemoglobin (A1c) 7.6 % High 4.8-6 70 finding Microalbumin,Random Urine 22.3 mg/L High 0-18.5 TSH Reflex FT4 and/or FT3 0.62 uIU/mL 0.49-4.67 71 eAG 171 mg/dL LDL Cholesterol Profile 10/21/2013 N2N/[facility] Import Cholesterol 155 mg/dL 120-200 HDL Cholesterol 52 mg/dL 29-83 LDL-Cholesterol 94 mg/dL 62-185 Triglycerides 47 mg/dL 16-231 Laboratory test 07/05/2013 N2N/[facility] Import Glycohemoglobin (A1c) 8.7 % High 4.8-6 72 finding Microalbumin,Random Urine 12.3 mg/L 0-18.5 eAG 203 mg/dL Comprehensive Metabolic Panel 07/05/2013 N2N/[facility] Import Alb/Glob 0.9 ratio Albumin 3.8 g/dL 3.5-5 Alkaline Phosphatase 99 U/L 50-136 Anion Gap 12 mEq/L 8-16 BUN 11 mg/dL 5-23 BUN/Creat 13.7 ratio Bilirubin,Total 0.4 mg/dL 0.2-1.2 Calcium 8.8 mg/dL 8.5-10.1 Carbon Dioxide 27 mEq/L 18-29 Chloride 105 mmol/L 98-107 Creatinine 0.8 mg/dL 0.5-1.4 Globulin 4.1 g/dL 1.9-4.3 Glom Filtration Rate, Estimate >60 mL/min Glucose 60 mg/dL Low 76-115 If >60 mL/min 73 Potassium 3.6 mmol/L 3.5-5.1 SGPT/Alt 33 U/L 30-65 Sgot/Ast 20 U/L 16-40 Sodium 140 mmol/L 136-145 Total Protein 7.9 g/dL 6.3-8 LDL Cholesterol Profile 07/05/2013 N2N/[facility] Import Cholesterol 184 mg/dL 120-200 HDL Cholesterol 62 mg/dL 29-83 LDL-Cholesterol 111 mg/dL 62-185 Triglycerides 57 mg/dL 16-231 Laboratory test 12/30/2012 N2N/[facility] Import Glycohemoglobin (A1c) 9.0 % High 4.8-6 74 finding Microalbumin,Random Urine 11.8 mg/L 0-18.5 Vitamin B12 161 pg/mL Low 200-900 eAG 212 mg/dL CBC W/Automated Diff 12/30/2012 N2N/[facility] Import Bas% 0.6 % 0.1-1 Baso # 0.03 K/uL Low 0.1-0.2 Eo% 3.7 % 0-5 Eos # 0.18 K/uL 0-0.5 Hematocrit 41.0 % 38-48 Hemoglobin 14.7 gm/dL 12.8-17 Lymph # 2.21 K/uL 1.2-4 Lymph % 45.7 % 17-56 Mean Cell Volume 81.5 fl 80-96 Mean Corpuscular HGB 29.2 pg 27-33 Mean Corpuscular HGB Conc 35.9 g/dL 31.7-36 Mean Platelet Volume 9.9 fL 6.6-10.6 Winkler # 0.30 K/uL 0-0.6 Winkler % 6.2 % 0-10 Neut# 2.12 K/uL 1.8-7 Neut% 43.8 % 33-73 Platelet Count 153 K/uL 150-400 Red Blood Count 5.03 M/uL 4.2-5.8 Red Cell Distri Width %CV 13.3 % 11.6-15.8 Red Cell Distri Width SD 38.4 fl 36-51 White Blood Count 4.8 K/uL 3.4-10.5 Comprehensive Metabolic Panel 12/30/2012 N2N/CCD Import Alb/Glob 1.0 ratio Albumin 4.0 g/dL 3.5-5 Alkaline Phosphatase 101 U/L 50-136 Anion Gap 10 mEq/L 8-16 BUN 15 mg/dL 5-23 BUN/Creat 18.7 ratio Bilirubin,Total 0.4 mg/dL 0.2-1.2 Calcium 9.1 mg/dL 8.5-10.1 Carbon Dioxide 31 mEq/L High 18-29 Chloride 104 mmol/L 98-107 Creatinine 0.8 mg/dL 0.5-1.4 Globulin 4.0 g/dL 1.9-4.3 Glom Filtration Rate, Estimate >60 mL/min Glucose 82 mg/dL 76-115 If >60 mL/min 75 Potassium 3.7 mmol/L 3.5-5.1 SGPT/Alt 28 U/L Low 30-65 Sgot/Ast 14 U/L Low 16-40 Sodium 141 mmol/L 136-145 Total Protein 8.0 g/dL 6.3-8 LDL Cholesterol Profile 12/30/2012 N2N/CCD Import Cholesterol 179 mg/dL 120-200 HDL Cholesterol 56 mg/dL 29-83 LDL-Cholesterol 114 mg/dL 62-185 Triglycerides 47 mg/dL 16-231 Vitamin B12 And 12/30/2012 N2N/CCD Import Folic Acid 15.8 ng/mL High 6- 15.4 Folate Laboratory test 08/13/2012 N2N/CCD Import Glycohemoglobin 12.0 % High 4.8 -6 76 finding (A1c) eAG 298 mg/dL Laboratory test 06/21/2012 N2N/CCD Import Glycohemoglobin (A1c) 11.3 % High 4.8-6 77 finding Thyroid Stim Hormone 2.75 uIU/mL 0.49-4.67 eAG 278 mg/dL CBS W/Automated Diff 06/21/2012 N2N/CCD Import Bas% 0.6 % 0.1-1 Baso # 0.03 K/uL Low 0.1-0.2 Eo% 1.2 % 0-5 Eos # 0.06 K/uL 0-0.5 Hematocrit 41.3 % 38-48 Hemoglobin 14.9 gm/dL 12.8-17 Lymph # 1.68 K/uL 1.2-4 Lymph % 34.7 % 17-56 Mean Cell Volume 81.8 fl 80-96 Mean Corpuscular HGB 29.5 pg 27-33 Mean Corpuscular HGB Conc 36.1 g/dL High 31.7-36 Mean Platelet Volume 11.3 fL High 6.6-10.6 Winkler # 0.31 K/uL 0-0.6 Winkler % 6.4 % 0-10 Neut# 2.76 K/uL 1.8-7 Neut% 57.1 % 33-73 Platelet Count 160 K/uL 150-400 Red Blood Count 5.05 M/uL 4.2-5.8 Red Cell Distri Width %CV 13.0 % 11.6-15.8 Red Cell Distri Width SD 37.8 fl 36-51 White Blood Count 4.8 K/uL 3.4-10.5 Comprehensive Metabolic Panel 06/21/2012 N2N/CCD Import Alb/Glob 0.9 ratio Albumin 3.8 g/dL 3.5-5 Alkaline Phosphatase 111 U/L 50-136 Anion Gap 12 mEq/L 8-16 BUN 17 mg/dL 5-23 BUN/Creat 21.2 ratio Bilirubin,Total 0.5 mg/dL 0.2-1.2 Calcium 9.2 mg/dL 8.5-10.1 Carbon Dioxide 27 mEq/L 18-29 Chloride 100 mmol/L 98-107 Creatinine 0.8 mg/dL 0.5-1.4 Globulin 4.2 g/dL 1.9-4.3 Glom Filtration Rate, Estimate >60 mL/min Glucose 249 mg/dL High 76-115 If >60 mL/min 78 Potassium 3.4 mmol/L Low 3.5-5.1 SGPT/Alt 27 U/L Low 30-65 Sgot/Ast 10 U/L Low 16-40 Sodium 136 mmol/L 136-145 Total Protein 8.0 g/dL 6.3-8 LDL Cholesterol Profile 06/21/2012 N2N/CCD Import Cholesterol 169 mg/dL 120-200 HDL Cholesterol 41 mg/dL 29-83 LDL-Cholesterol 115 mg/dL 62-185 Triglycerides 66 mg/dL 16-231 Vitamin B12 And Folate 06/21/2012 N2N/CCD Import Folic Acid 15.4 ng/mL 6 -15.4 Vitamin B12 210 pg/mL 200-900 79 Laboratory test 01/02/2012 N2N/CCD Import Glycohemoglobin (A1c) 9.9 % High 4.8-6 80 finding eAG 237 mg/dL Laboratory test finding 11/23/2011 N2N/CCD Import 2 Hour GTT See Note mg/ dL 81 Glucose,2 HR Post Glucola See Note 82 Glycohemoglobin (A1c) 11.7 % High 4.8-6 83 eAG 289 mg/dL LDL Cholesterol 11/10/2011 N2N/CCD Import Cholesterol 227 mg/dL High 120- 200 Profile HDL Cholesterol 44 mg/dL 29-83 LDL-Cholesterol 156 mg/dL 62-185 Triglycerides 136 mg/dL 16-231 1 D51.0 Z12.5 E11.40 I10 E03.9 Z00.01 2 Elevated levels of HbA1c suggest the need for more aggressive treatment of glycemia. The [place] [employer] recommends that a primary goal of therapy should be a HbA1c of <7% and that physicians should re-evaluate the treatment regimen in patients with HbA1c values consistently >8%. 3 THIS ASSAY IS NOT INTENDED A CANCER SCREENING TEST The concentration of PSA in a given specimen, determined with assays from different manufacturers, can vary due to differences in assay methods and reagent specificity. Values obtained from different assay methods cannot be used interchangeably. Method: Siemens Dimension Kidder Chemiluminescent immunoassay. 4 Vitamin D deficiency has been defined by the [place] [employer] and an Endocrine Society practice guideline as a level of serum 25-OH vitamin D less than 20 ng/mL (1,2). The Endocrine Society went on to further define vitamin D insufficiency as a level between 21 and 29 ng/mL (2). 1. IOM ([place] [employer]). 2010. Dietary reference intakes for calcium and D. [place]: The National Academies Press. 2. Mitesh MF, Adolfo CAMPOS, Lilly KOTHARI, et al. Evaluation, treatment, and prevention of vitamin D deficiency: an Endocrine Society clinical practice guideline. JCEM. 2010; 96(7):1911-30. Performed at: RN - [facility] [address] [id number] Vice President & General Manager [employer] [place] [employer]: Sara Hunter MD, Phone: [phone] 5 Note: Persistent reduction for 3 months or more in an eGFR <60 mL/min/1.73 m2 defines CKD. Patients with eGFR values >/=60 mL/min/1.73 m2 may also have CKD if evidence of persistent proteinuria is present. The original MDRD equation for estimated GFR is not valid for patients less than 18 years of age. Additional information may be found at [email or web address]. 6 Reference Guidelines*: Desirable: ........... < 200 mg/dL Borderline High: ..... 200-239 mg/dL High: ................ >=240 mg/dL * The National Cholesterol Education Program (NCEP) 7 Reference Guidelines*: Low HDL: ..... < 40 mg/dL Normal: ..... 40-60 mg/dL Desirable: ... > 60 mg/dL *The National Cholesterol Education Program(NCEP) 8 Reference Guidelines*: Optimal:........... <100 mg/dL Near Optimal....... 100-129 mg/dL Borderline High.... 130-159 mg/dL High............... 160-189 mg/dL Very High.......... >=190 mg/dL * Source: National Cholesterol Education Program (NCEP) 9 Reference Guidelines*: Normal: ............. < 150 mg/dL Borderline High: .... 150-199 mg/dL High: ............... 200-499 mg/dL Very High: .......... > 500 mg/dL * Source: National Cholesterol Education Program (NCEP) 10 URINE, CLEAN CATCH 11 DIABETIC 12 0.0 - 0.045 ng/mL: Normal 0.046 - 0.5 ng/mL: Suggestive 0.6 - 1.5 ng/mL: Consistent 13 Note: Persistent reduction for 3 months or more in an eGFR <60 mL/min/1.73 m2 defines CKD. Patients with eGFR values >/=60 mL/min/1.73 m2 may also have CKD if evidence of persistent proteinuria is present. The original MDRD equation for estimated GFR is not valid for patients less than 18 years of age. Additional information may be found at [email or web address]. 14 E11.40 15 Elevated levels of HbA1c suggest the need for more aggressive treatment of glycemia. The [place] [employer] recommends that a primary goal of therapy should be a HbA1c of <7% and that physicians should re-evaluate the treatment regimen in patients with HbA1c values consistently >8%. 16 E11.40,R97.20 17 Elevated levels of HbA1c suggest the need for more aggressive treatment of glycemia. The [place] [employer] recommends that a primary goal of therapy should be a HbA1c of <7% and that physicians should re-evaluate the treatment regimen in patients with HbA1c values consistently >8%. 18 THIS ASSAY IS NOT INTENDED A CANCER SCREENING TEST The concentration of PSA in a given specimen, determined with assays from different manufacturers, can vary due to differences in assay methods and reagent specificity. Values obtained from different assay methods cannot be used interchangeably. Method: VasoGenixta Chemiluminescent immunoassay. 19 Note: Persistent reduction for 3 months or more in an eGFR <60 mL/min/1.73 m2 defines CKD. Patients with eGFR values >/=60 mL/min/1.73 m2 may also have CKD if evidence of persistent proteinuria is present. The original MDRD equation for estimated GFR is not valid for patients less than 18 years of age. Additional information may be found at [email or web address]. 20 E11.40, D51.9 21 Elevated levels of HbA1c suggest the need for more aggressive treatment of glycemia. The [place] [employer] recommends that a primary goal of therapy should be a HbA1c of <7% and that physicians should re-evaluate the treatment regimen in patients with HbA1c values consistently >8%. 22 Note: Persistent reduction for 3 months or more in an eGFR <60 mL/min/1.73 m2 defines CKD. Patients with eGFR values >/=60 mL/min/1.73 m2 may also have CKD if evidence of persistent proteinuria is present. The original MDRD equation for estimated GFR is not valid for patients less than 18 years of age. Additional information may be found at [email or web address]. 23 Z12.5 E11.40 I10 D51.0 E03.9 24 Elevated levels of HbA1c suggest the need for more aggressive treatment of glycemia. The [place] [employer] recommends that a primary goal of therapy should be a HbA1c of <7% and that physicians should re-evaluate the treatment regimen in patients with HbA1c values consistently >8%. 25 THIS ASSAY IS NOT INTENDED A CANCER SCREENING TEST The concentration of PSA in a given specimen, determined with assays from different manufacturers, can vary due to differences in assay methods and reagent specificity. Values obtained from different assay methods cannot be used interchangeably. Method: VasoGenixta Chemiluminescent immunoassay. 26 Note: Persistent reduction for 3 months or more in an eGFR <60 mL/min/1.73 m2 defines CKD. Patients with eGFR values >/=60 mL/min/1.73 m2 may also have CKD if evidence of persistent proteinuria is present. The original MDRD equation for estimated GFR is not valid for patients less than 18 years of age. Additional information may be found at [email or web address]. 27 Reference Guidelines*: Desirable: ........... < 200 mg/dL Borderline High: ..... 200-239 mg/dL High: ................ >=240 mg/dL * The National Cholesterol Education Program (NCEP) 28 Reference Guidelines*: Low HDL: ..... < 40 mg/dL Normal: ..... 40-60 mg/dL Desirable: ... > 60 mg/dL *The National Cholesterol Education Program(NCEP) 29 Reference Guidelines*: Optimal:........... <100 mg/dL Near Optimal....... 100-129 mg/dL Borderline High.... 130-159 mg/dL High............... 160-189 mg/dL Very High.......... >=190 mg/dL * Source: National Cholesterol Education Program (NCEP) 30 Reference Guidelines*: Normal: ............. < 150 mg/dL Borderline High: .... 150-199 mg/dL High: ............... 200-499 mg/dL Very High: .......... > 500 mg/dL * Source: National Cholesterol Education Program (NCEP) 31 E11.40,E03.9 32 Elevated levels of HbA1c suggest the need for more aggressive treatment of glycemia. The [place] [employer] recommends that a primary goal of therapy should be a HbA1c of <7% and that physicians should re-evaluate the treatment regimen in patients with HbA1c values consistently >8%. 33 Note: Persistent reduction for 3 months or more in an eGFR <60 mL/min/1.73 m2 defines CKD. Patients with eGFR values >/=60 mL/min/1.73 m2 may also have CKD if evidence of persistent proteinuria is present. The original MDRD equation for estimated GFR is not valid for patients less than 18 years of age. Additional information may be found at [email or web address]. 34 E11.40,E03.9,D51.0 35 Elevated levels of HbA1c suggest the need for more aggressive treatment of glycemia. The [place] [employer] recommends that a primary goal of therapy should be a HbA1c of <7% and that physicians should re-evaluate the treatment regimen in patients with HbA1c values consistently >8%. 36 Elevated levels of HbA1c suggest the need for more aggressive treatment of glycemia. The [place] [employer] recommends that a primary goal of therapy should be a HbA1c of <7% and that physicians should re-evaluate the treatment regimen in patients with HbA1c values consistently >8%. 37 Note: Persistent reduction for 3 months or more in an eGFR <60 mL/min/1.73 m2 defines CKD. Patients with eGFR values >/=60 mL/min/1.73 m2 may also have CKD if evidence of persistent proteinuria is present. The original MDRD equation for estimated GFR is not valid for patients less than 18 years of age. Additional information may be found at [email or web address]. 38 Reference Guidelines*: Desirable: ........... < 200 mg/dL Borderline High: ..... 200-239 mg/dL High: ................ >=240 mg/dL * The National Cholesterol Education Program (NCEP) 39 Reference Guidelines*: Low HDL: ..... < 40 mg/dL Normal: ..... 40-60 mg/dL Desirable: ... > 60 mg/dL *The National Cholesterol Education Program(NCEP) 40 Reference Guidelines*: Optimal:........... <100 mg/dL Near Optimal....... 100-129 mg/dL Borderline High.... 130-159 mg/dL High............... 160-189 mg/dL Very High.......... >=190 mg/dL * Source: National Cholesterol Education Program (NCEP) 41 Reference Guidelines*: Normal: ............. < 150 mg/dL Borderline High: .... 150-199 mg/dL High: ............... 200-499 mg/dL Very High: .......... > 500 mg/dL * Source: National Cholesterol Education Program (NCEP) 42 Elevated levels of HbA1c suggest the need for more aggressive treatment of glycemia. The [place] [employer] recommends that a primary goal of therapy should be a HbA1c of <7% and that physicians should re-evaluate the treatment regimen in patients with HbA1c values consistently >8%. 43 QUERY: Is the Patient Fasting? Y 44 Note: Persistent reduction for 3 months or more in an eGFR <60 mL/min/1.73 m2 defines CKD. Patients with eGFR values >/=60 mL/min/1.73 m2 may also have CKD if evidence of persistent proteinuria is present. The original MDRD equation for estimated GFR is not valid for patients less than 18 years of age. Additional information may be found at www.[email or web address]. 45 Reference Guidelines*: Desirable: ........... < 200 mg/dL Borderline High: ..... 200-239 mg/dL High: ................ >=240 mg/dL * The National Cholesterol Education Program (NCEP) 46 Reference Guidelines*: Low HDL: ..... < 40 mg/dL Normal: ..... 40-60 mg/dL Desirable: ... > 60 mg/dL *The National Cholesterol Education Program(NCEP) 47 Reference Guidelines*: Optimal:........... <100 mg/dL Near Optimal....... 100-129 mg/dL Borderline High.... 130-159 mg/dL High............... 160-189 mg/dL Very High.......... >=190 mg/dL * Source: National Cholesterol Education Program (NCEP) 48 Reference Guidelines*: Normal: ............. < 150 mg/dL Borderline High: .... 150-199 mg/dL High: ............... 200-499 mg/dL Very High: .......... > 500 mg/dL * Source: National Cholesterol Education Program (NCEP) 49 Elevated levels of HbA1c suggest the need for more aggressive treatment of glycemia. The [place] [employer] recommends that a primary goal of therapy should be a HbA1c of <7% and that physicians should re-evaluate the treatment regimen in patients with HbA1c values consistently >8%. 50 Elevated levels of HbA1c suggest the need for more aggressive treatment of glycemia. The [place] [employer] recommends that a primary goal of therapy should be a HbA1c of <7% and that physicians should re-evaluate the treatment regimen in patients with HbA1c values consistently >8%. 51 Elevated levels of HbA1c suggest the need for more aggressive treatment of glycemia. The [place] [employer] recommends that a primary goal of therapy should be a HbA1c of <7% and that physicians should re-evaluate the treatment regimen in patients with HbA1c values consistently >8%. 52 PT FASTING SINCE 530AM BUT HAD TO TAKE GLUCOSE TABLETS AROUND 2PM 53 NOTE CHANGE IN B12 REFERENCE RANGE 54 Note: Persistent reduction for 3 months or more in an eGFR <60 mL/min/1.73 m2 defines CKD. Patients with eGFR values >/=60 mL/min/1.73 m2 may also have CKD if evidence of persistent proteinuria is present. The original MDRD equation for estimated GFR is not valid for patients less than 18 years of age. Additional information may be found at [email or web address]. 55 Reference Guidelines*: Desirable: ........... < 200 mg/dL Borderline High: ..... 200-239 mg/dL High: ................ >=240 mg/dL * The National Cholesterol Education Program (NCEP) 56 Reference Guidelines*: Low HDL: ..... < 40 mg/dL Normal: ..... 40-60 mg/dL Desirable: ... > 60 mg/dL *The National Cholesterol Education Program(NCEP) 57 Reference Guidelines*: Optimal:........... <100 mg/dL Near Optimal....... 100-129 mg/dL Borderline High.... 130-159 mg/dL High............... 160-189 mg/dL Very High.......... >=190 mg/dL * Source: National Cholesterol Education Program (NCEP) 58 Reference Guidelines*: Normal: ............. < 150 mg/dL Borderline High: .... 150-199 mg/dL High: ............... 200-499 mg/dL Very High: .......... > 500 mg/dL * Source: National Cholesterol Education Program (NCEP) 59 A1c value between 5.7% and 6.4% is considered at increased risk for diabetes. A1c value greater than 6.5 % is considered essentially diagnostic for Type II diabetes. Current guidelines recommend a treatment goal of <7% for diabetic patients. This method will measure glycosylated hemoglobin variants, HbS, HbG, HbH, HbWayne, HbC, HbE, etc. Other hemoglobin- opathies may give incorrect results with this test. 60 THIS ASSAY IS NOT INTENDED A CANCER SCREENING TEST The concentration of PSA in a given specimen, determined with assays from different manufacturers, can vary due to differences in assay methods and reagent specificity. Values obtained from different assay methods cannot be used interchangeably. 61 Note: Persistent reduction for 3 months or more in an eGFR <60 mL/min/1.73 m2 defines CKD. Patients with eGFR values >/=60 mL/min/1.73 m2 may also have CKD if evidence of persistent proteinuria is present. The original MDRD equation for estimated GFR is not valid for patients less than 18 years of age. Additional information may be found at www.[email or web address]. 62 Is patient on anticoagulants? None QUERY: Anticoagulant Therapy? QUERY: Date of Last Dose: QUERY: Time of Last Dose: 63 Acceptable specimens for this test are male urethral swab, endocervical swab and liquid based pap specimens, vaginal swabs in APTIMA transports and first void urine. See online Directory of Services for test number for rectal and pharyngeal specimens. Performed at: RN - [facility] [address] [id number] Vice President & General Manager [employer] [place]: Sara Hunter MD, Phone: [phone] 64 Note: Persistent reduction for 3 months or more in an eGFR <60 mL/min/1.73 m2 defines CKD. Patients with eGFR values >/=60 mL/min/1.73 m2 may also have CKD if evidence of persistent proteinuria is present. The original MDRD equation for estimated GFR is not valid for patients less than 18 years of age. Additional information may be found at www.kdoqi.org. 65 THERAPEUTIC INR RANGE: 2.0 - 3.0 DVT, Pulmonary embolus, prophylaxis against venous thrombosis or systemic embolization in high risk patients. 2.5 - 3.5 Mechanical heart valves 66 NO GROWTH: FINAL REPORT 67 03/12/14 LAB.[facility] Deleted by [facility] 68 Note: Persistent reduction for 3 months or more in an eGFR <60 mL/min/1.73 m2 defines CKD. Patients with eGFR values >/=60 mL/min/1.73 m2 may also have CKD if evidence of persistent proteinuria is present. The original MDRD equation for estimated GFR is not valid for patients less than 18 years of age. Additional information may be found at www.[email or web address]. 69 Note: Persistent reduction for 3 months or more in an eGFR <60 mL/min/1.73 m2 defines CKD. Patients with eGFR values >/=60 mL/min/1.73 m2 may also have CKD if evidence of persistent proteinuria is present. The original MDRD equation for estimated GFR is not valid for patients less than 18 years of age. Additional information may be found at www.[email or web address]. 70 A1c value between 5.7% and 6.4% is considered at increased risk for diabetes. A1c value greater than 6.5 % is considered essentially diagnostic for Type II diabetes. Current guidelines recommend a treatment goal of <7% for diabetic patients. This method will measure glycosylated hemoglobin variants, HbS, HbG, HbH, HbWayne, HbC, HbE, etc. Other hemoglobin- opathies may give incorrect results with this test. 71 QUERY: Reflex add FT3? Y QUERY: Reflex add FT4? Y 72 A1c value between 5.7% and 6.4% is considered at increased risk for diabetes. A1c value greater than 6.5 % is considered essentially diagnostic for Type II diabetes. Current guidelines recommend a treatment goal of <7% for diabetic patients. This method will measure glycosylated hemoglobin variants, HbS, HbG, HbH, HbWayne, HbC, HbE, etc. Other hemoglobin- opathies may give incorrect results with this test. 73 Note: Persistent reduction for 3 months or more in an eGFR <60 mL/min/1.73 m2 defines CKD. Patients with eGFR values >/=60 mL/min/1.73 m2 may also have CKD if evidence of persistent proteinuria is present. The original MDRD equation for estimated GFR is not valid for patients less than 18 years of age. Additional information may be found at www.[email or web address]. 74 A1c value between 5.7% and 6.4% is considered at increased risk for diabetes. A1c value greater than 6.5 % is considered essentially diagnostic for Type II diabetes. Current guidelines recommend a treatment goal of <7% for diabetic patients. This method will measure glycosylated hemoglobin variants, HbS, HbG, HbH, HbWayne, HbC, HbE, etc. Other hemoglobin- opathies may give incorrect results with this test. 75 Note: Persistent reduction for 3 months or more in an eGFR <60 mL/min/1.73 m2 defines CKD. Patients with eGFR values >/=60 mL/min/1.73 m2 may also have CKD if evidence of persistent proteinuria is present. The original MDRD equation for estimated GFR is not valid for patients less than 18 years of age. Additional information may be found at www.[email or web address]. 76 A1c value between 5.7% and 6.4% is considered at increased risk for diabetes. A1c value greater than 6.5 % is considered essentially diagnostic for Type II diabetes. Current guidelines recommend a treatment goal of <7% for diabetic patients. This method will measure glycosylated hemoglobin variants, HbS, HbG, HbH, HbWayne, HbC, HbE, etc. Other hemoglobin- opathies may give incorrect results with this test. 77 A1c value between 5.7% and 6.4% is considered at increased risk for diabetes. A1c value greater than 6.5 % is considered essentially diagnostic for Type II diabetes. Current guidelines recommend a treatment goal of <7% for diabetic patients. This method will measure glycosylated hemoglobin variants, HbS, HbG, HbH, HbWayne, HbC, HbE, etc. Other hemoglobin- opathies may give incorrect results with this test. 78 Note: Persistent reduction for 3 months or more in an eGFR <60 mL/min/1.73 m2 defines CKD. Patients with eGFR values >/=60 mL/min/1.73 m2 may also have CKD if evidence of persistent proteinuria is present. The original MDRD equation for estimated GFR is not valid for patients less than 18 years of age. Additional information may be found at www.[email or web address]. 79 Borderline result. Homocysteine and Methylmalonic acid should be considered for values greater than 200 pg/mL and less that 400 pg/mL. 80 A1c value between 5.7% and 6.4% is considered at increased risk for diabetes. A1c value greater than 6.5 % is considered essentially diagnostic for Type II diabetes. Current guidelines recommend a treatment goal of <7% for diabetic patients. This method will measure glycosylated hemoglobin variants, HbS, HbG, HbH, HbWayne, HbC, HbE, etc. Other hemoglobin- opathies may give incorrect results with this test. 81 Glucose, Fast 322 (*H) mg/dL 1/2 Hr Glucose 439 (*H) mg/dL 1 Hr Glucose 539 (*H) mg/dL 2 Hr Glucose 490 (*H) ng/dL FAST URINE GLU 1/2 (H) % FAST URINE KET MODERATE 1/2HR URINE GLU >1 % 1/2HR URINE KET LARGE 1HR URINE GLU >=1 (H) % 1HR URINE KET MODERATE 2HR URINE GLU >=1 % 2HR URINE KET MODERATE 82 11/23/11 LAB.[facility] WRONG TEST 83 A1c value between 5.7% and 6.4% is considered at increased risk for diabetes. A1c value greater than 6.5 % is considered essentially diagnostic for Type II diabetes. Current guidelines recommend a treatment goal of <7% for diabetic patients. This method will measure glycosylated hemoglobin variants, HbS, HbG, HbH, HbWayne, HbC, HbE, etc. Other hemoglobin- opathies may give incorrect results with this test. Procedures Date Code Description Status 01/24/2019 64124 Admin Of Inj Completed 12/03/2018 07834 Admin Of Inj Completed 09/02/2018 11536 Admin Of Inj Completed 07/09/2018 [id number] Colonoscopy Completed 07/09/2018 20709 Colonoscopy Flexible Diagnostic Completed 05/30/2018 50980 Admin Of Inj Completed 03/12/2018 58268 Admin Of Inj Completed 10/09/2017 97659 Admin Of Inj Completed 05/29/2017 49805 Admin Of Inj Completed 02/06/2017 30549 Admin Of Inj Completed 10/26/2016 75472 Admin Of Inj Completed 04/27/2016 02846 Visual funct screen test, automated Completed 04/27/2016 57194 Pure Tone Hearing Test, Air Completed 12/27/2015 49499 Admin Of Inj Completed 08/03/2014 66710 Admin Of Inj Completed 04/06/2014 57984 Pure Tone Hearing Test, Air Completed 04/06/2014 90290 Visual funct screen test, automated Completed 08/04/2013 40991 Admin Of Inj Completed 02/17/2013 69785 Pure Tone-Air Condition Only Completed 06/26/2012 82997 Admin Of Inj Completed 02/12/2012 58475 Pure Tone-Air Condition Only Completed 02/12/2012 99466 Visual funct screen test, automated Completed 09/18/2011 60174 Admin Of Inj Completed 07/17/2011 10263 Admin Of Inj Completed 04/03/2011 68454 Admin Of Inj Completed 10/26/2010 15883 Admin Of Inj Completed 09/01/2010 55701 Visual funct screen test, automated Completed 09/01/2010 73467 Admin Of Inj Completed 09/01/2010 76198 Pure Tone-Air Condition Only Completed 07/22/2010 36988 Admin Of Inj Completed 04/21/2010 27665 Admin Of Inj Completed 12/29/2009 22351 Admin Of Inj Completed 09/29/2009 15258 Admin Of Inj Completed 09/01/2009 27748 Admin Of Inj Completed 08/25/2009 20480 Visual funct screen test, automated Completed 08/25/2009 70392 Pure Tone-Air Condition Only Completed 08/17/2008 94431 Screening Vision Test Completed 08/17/2008 51998 Pure Tone-Air Condition Only Completed Encounters Type Date Location Provider Dx Diagnosis Office Visit 12/03/2018 [facility] Igor E11.9 Type 2 diabetes 4:00p MD Nancy mellitus without complications R97.20 Elevated prostate specific antigen [PSA] D51.9 Vitamin B12 deficiency anemia, unspecified Plan of Treatment Future Appointment(s):03/27/2019 3:45 pm - Igor Cruz MD at [facility]06/02/2019 4:00 pm - Igor Cruz MD at [facility] - Igor Cruz MDE11.9 Type 2 diabetes mellitus without complicationsNew Medication:Metformin HCL 500 mg - 1 by mouth twice a day
--- OUTSIDE RECORDS SUMMARY | 2019-03-10 08:35 | XMS REPORT | Continuity of Care Document ---
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 Use Occasionally consumes alcohol Tobacco Use Start: Unknown End: Unknown Patient is a former smoker Smoking Status Reviewed: 03/03/19 Patient is a former smoker Medications Active Medications SIG Qnty Indications Ordering Date Provider Vitamin Deficiency once monthly at 3units Igor 07/02/2018 Injectable System-B12 doctor's MD Nancy 1000mcg/ML Kit Doxazosin Mesylate 1 by mouth 30tabs I10 Igor 04/23/2018 8mg every day MD Nancy Tablets Trulicity inject once a 2units E11.40 04/23/2018 0.75mg/0.5ML week MD Nancy Solution Pen-Inject Valsartan 1 by mouth 90tabs I10 05/29/2017 320mg Tablets every day MD Nancy Cialis 1 as needed 6tabs N52.9 05/29/2017 20mg Tablets MD Nancy Toujeo Solostar 95 u daily, dx 27units E11.40 09/22/2015 e11.40, 90 day MD Nancy 300Unit/ML Solution supply Pen-Inject Onetouch Ultrasoft use to test 300units Igor 04/07/2015 Lancets blood glucose MD Nancy Misc three times a day and as needed Onetouch Ultra Blue test twice a 300units 04/07/2015 day and as MD Nancy Strips needed Novolog Flexpen 6 units with 30ml E11.9 11/23/2011 each light MD Nancy 100Unit/ML Solution meal, 8 u with Pen-Inject heavy meals and also the sliding scale coverage, 90 day supply Levothyroxine Sodium take 1 tablet 90tabs E03.9 Igor 09/04/2011 by mouth once MD Nancy 175mcg Tablets daily History Medications Viagra use as needed 8tabs N52.9 Igor 02/06/2017 - 100mg daily MD Nancy 05/29/2017 Tablets Azithromycin 2 now and 1 daily 6tabs J06.9 Igor 07/26/2016 - x 4 days MD Nancy 07/27/2016 250mg Tablets Doxazosin Mesylate 1 by mouth every 90tabs I10 Igor 04/27/2016 - day MD Nancy 04/23/2018 4mg Tablets Amoxicillin/Clavul 1 tid 30tabs J20.9 Igor 12/27/2015 - anate Potassium MD Nancy 07/27/2016 875-125mg Tablets Doxazosin Mesylate 1 by mouth every 30tabs I10 Igor 09/22/2015 - day MD Nancy 04/27/2016 2mg Tablets Lisinopril-Hydroch take one tablet [...] 401.9 Igor 06/24/2012 - Succinate ER MD Nancy 08/04/2013 50mg Tablets ER 24HR Levemir Flextouch [...] Medication SIG Qnty Indications Ordering Provider Date B-12 Injection Nurse Schedule Loc 73 01/24/2019 Injection B12 Provided By Patient Igor Cruz MD 12/03/2018 Injection Immunizations CPT Code Status Date Vaccine Lot # [id number] Given 05/30/2018 Tdap - Tetanus/Diptheria/Acellular Pertussis 50809 Given 02/17/2013 Pneumonia Vaccine 79604 Given 10/29/2006 Tdap - Tetanus/Diptheria/Acellular Pertussis Vital Signs Date Vital Result Comment 03/03/2019 11:57am Weight 198.00 lb BP Systolic [...] 4.2- 6.3 1, 2 finding (A1c) PSA ([place]) 7.35 ng/mL 3 Reflex add FT3? [...] Microalbumin,Urine 11.2 mg/L Laboratory test finding 08/30/2018 N2N/CCD Import Source: Urine, 10 Clean Cat <See Note> Urine Bilirubin - Dipstick Negative Urine Blood Negative Urine Clarity Clear Urine Color Yellow Urine Glucose - Dipstick Negative mg/dL Urine Ketone Negative mg/dL Urine Leuk Esterase Negative Urine Nitrite - Dipstick Negative Urine PH 6.0 1 Low 6.5-7.5 Urine Protein - Dipstick Negative mg/dL Urine Specific [place] 1.020 1 1.01-1.03 Urine Urobilinogen - Dipstick [...] 31.7-36 Mean Platelet Volume 10.2 fL 6.6-10.6 [place] # 0.31 K/uL 0-0.8 [place] % 5.6 % 0-10 Neut# 3.97 K/uL [...] 4.2- 6.3 23, 24 finding (A1c) PSA ([place]) 6.91 ng/mL 25 Reflex add FT4? [...] Y Triglycerides 84 mg/dL 30 Microalbumin,Random 09/03/2017 N2N/CCD Import Microalbumin,Urine 21.6 Urine mg/L Laboratory test finding 10/26/2016 N2N/CCD Import Glycohemoglobin (A1c) 7.9 % High 4.2 31, -6. 32 3 Thyroid Stim Hormone 1.76 uIU/mL 0.3-4.2 eAG 180 mg/dL Comprehensive Metabolic Panel 10/26/2016 N2N/CCD Import Alb/Glob 0.8 ratio Albumin 3.4 [...] mg/L Laboratory test finding 07/26/2016 N2N/CCD Import @[facility] Pat Id: [id number] @[facility] Req #: [id number] 1 Glycohemoglobin (A1c) 8.6 % High 4.2-6.3 [...] 31.7-36 Mean Platelet Volume 10.3 fL 6.6-10.6 [place] # 0.32 K/uL 0-0.8 [place] % 6.0 % 0-10 Neut# 3.31 K/uL [...] 31.7-36 Mean Platelet Volume 10.5 fL 6.6-10.6 [place] # 0.29 K/uL 0-0.6 [place] % 5.9 % 0-10 Neut# 3.09 K/uL 1.8-7 Neut% 63.1 % 33-73 Platelet Count 120 K/uL Low 150-400 Red Blood Count 4.62 M/uL 4.2-5.8 Red Cell Distri Width %CV 13.0 % 11.6-15.8 Red Cell Distri Width SD 37.0 fl 36-51 White Blood Count 4.9 K/uL 3.4-10.5 Comprehensive Metabolic Panel 11/03/2014 N2N/CCD Import Alb/Glob 0.9 ratio Albumin 3.6 g/dL [...] 7.7 g/dL 6.4-8.2 LDL Cholesterol Profile 11/03/2014 N2N/CCD Import Cholesterol 157 mg/dL 55 HDL Cholesterol 46 mg/dL 56 LDL-Cholesterol 99 mg/dL 57 Triglycerides 60 mg/dL 58 Laboratory test 04/06/2014 N2N/CCD Import Glycohemoglobin (A1c) 8.4 % High 4.8-6 59 finding Prostate Specific Antigen 6.25 ng/mL High 0-4 60 eAG 194 mg/dL Comprehensive Metabolic Panel 04/06/2014 N2N/CCD Import Alb/Glob 0.9 ratio Albumin 3.8 [...] g/dL High 6.3-8 LDL Cholesterol Profile 04/06/2014 N2N/[facility]le[facility] Import Cholesterol 172 mg/dL 120-200 HDL Cholesterol 64 mg/dL 29-83 LDL-Cholesterol 101 mg/dL 62-185 Triglycerides 36 mg/dL 16-231 Laboratory 04/06/2014 N2N/[facility] Import Microalbumin,Random 22.2 mg/L High 0 -18.5 test finding Urine Laboratory 03/12/2014N/[facility] Import Act Partial Thrombo 33.6 s 23.9- 34.3 62 test finding Time Urinalysis 03/12/2014N/[facility] Import Urine Bacteria Very Few With [place] [...] RBC TNTC rbc/hpf High 0-7 Urine Specific [place] 1.025 1 1.01-1.03 Urine Urobilinogen - Dipstick 0.2 E.U./dL 0.2-1 Urine WBC None Seen wbc/hpf 0-7 CBC W/Automated Diff 03/12/2014/Circle[facility] Import Bas% 0.3 % 0.1-1 Baso # [...] Mean Platelet Volume 10.8 fL High 6.6-10.6 [place] # 0.31 K/uL 0-0.6 [place] % 5.4 % 0-10 Neut# 3.17 K/uL [...] Protein - Dipstick Negative mg/dL Urine Specific [place] >=1.030 1.01-1.03 Urine Urobilinogen - Dipstick 0.2 [...] 31.7-36 Mean Platelet Volume 10.5 fL 6.6-10.6 [place] # 0.32 K/uL 0-0.6 [place] % 5.8 % 0-10 Neut# 3.40 K/uL 1.8-7 Neut% 61.3 % 33-73 Platelet Count 129 K/uL Low 150-400 Red Blood Count 5.25 M/uL 4.2-5.8 Red Cell Distri Width %CV 12.5 % 11.6-15.8 Red Cell Distri Width SD 36.7 fl 36-51 White Blood Count 5.6 K/uL 3.4-10.5 Comprehensive Metabolic Panel 10/21/2013 N2N/CCD Import Alb/Glob 1.1 ratio Albumin 4.0 g/dL [...] Protein 7.8 g/dL 6.3-8 Laboratory test 10/21/2013 N2N/CCD Import Glycohemoglobin (A1c) 7.6 % High 4.8-6 70 finding Microalbumin,Random Urine 22.3 mg/L High 0-18.5 TSH Reflex FT4 and/or FT3 0.62 uIU/mL 0.49-4.67 71 eAG 171 mg/dL LDL Cholesterol Profile 10/21/2013 N2N/CCD Import Cholesterol 155 mg/dL 120-200 HDL Cholesterol 52 mg/dL 29-83 LDL-Cholesterol 94 mg/dL 62-185 Triglycerides 47 mg/dL 16-231 Laboratory test 07/05/2013 N2N/CCD Import Glycohemoglobin (A1c) 8.7 % High 4.8-6 72 finding Microalbumin,Random Urine 12.3 mg/L 0-18.5 eAG 203 mg/dL Comprehensive Metabolic Panel 07/05/2013 N2N/CCD Import Alb/Glob 0.9 ratio Albumin 3.8 [...] 7.9 g/dL 6.3-8 LDL Cholesterol Profile 07/05/2013 N2N/CCD Import Cholesterol 184 mg/dL 120-200 HDL Cholesterol 62 mg/dL 29-83 LDL-Cholesterol 111 mg/dL 62-185 Triglycerides 57 mg/dL 16-231 Laboratory test 12/30/2012 N2N/CCD Import Glycohemoglobin (A1c) 9.0 % High 4.8-6 74 finding Microalbumin,Random Urine 11.8 mg/L 0-18.5 Vitamin B12 161 pg/mL Low 200-900 eAG 212 mg/dL CBC W/Automated Diff 12/30/2012 N2N/CCD Import Bas% 0.6 % 0.1-1 Baso [...] 31.7-36 Mean Platelet Volume 9.9 fL 6.6-10.6 [place] # 0.30 K/uL 0-0.6 [place] % 6.2 % 0-10 Neut# 2.12 K/uL [...] Mean Platelet Volume 11.3 fL High 6.6-10.6 [place] # 0.31 K/uL 0-0.6 [place] % 6.4 % 0-10 Neut# 2.76 K/uL [...] for more aggressive treatment of glycemia. The [place] Diabetes Association recommends that a primary goal [...] cannot be used interchangeably. Method: Siemens Dimension [place] Chemiluminescent immunoassay. 4 Vitamin D deficiency has been defined by the [employer] and an Endocrine Society practice guideline as a level of serum 25-OH vitamin D less than 20 ng/mL (1,2). The Endocrine Society went on to further define vitamin D insufficiency as a level between 21 and 29 ng/mL (2). 1. IOM ([place] [employer]). 2010. Dietary reference intakes for calcium and D. [place]: The National Academies Press. 2. Mitesh MF, Adolfo NC, Lilly KOTHARI, et al. Evaluation, treatment, and prevention of vitamin D deficiency: an Endocrine Society clinical practice guideline. JCEM. 2010; 96(7):1911-30. Performed at: RN - [facility] [id number] Internal Controls Manager: Sara Hunter MD, Phone: [phone] 5 Note: Persistent reduction for 3 months [...] for more aggressive treatment of glycemia. The [place] [employer] Association recommends that a primary goal of therapy should be a HbA1c of <7% and that physicians should re-evaluate the treatment regimen in patients with HbA1c values consistently >8%. 16 E11.40,R97.20 17 Elevated levels of HbA1c suggest the need for more aggressive treatment of glycemia. The [place] [employer] recommends that a primary goal [...] assay methods cannot be used interchangeably. Method: PFI Acquisitionta Chemiluminescent immunoassay. 19 Note: Persistent reduction for [...] for more aggressive treatment of glycemia. The [place] [employer] Association recommends that a primary goal [...] for more aggressive treatment of glycemia. The [place] Diabetes Association recommends that a primary goal [...] methods cannot be used interchangeably. Method: Siemens AgreeYa Mobility - Onvelopta Chemiluminescent immunoassay. 26 Note: Persistent reduction for [...] for more aggressive treatment of glycemia. The [place] Diabetes Association recommends that a primary goal [...] for more aggressive treatment of glycemia. The [place] [employer] Association recommends that a primary goal of therapy should be a HbA1c of <7% and that physicians should re-evaluate the treatment regimen in patients with HbA1c values consistently >8%. 36 Elevated levels of HbA1c suggest the need for more aggressive treatment of glycemia. The [place] [employer] Association recommends that a primary goal [...] for more aggressive treatment of glycemia. The [place] [employer] Association recommends that a primary goal [...] for more aggressive treatment of glycemia. The [place] [employer] Association recommends that a primary goal of therapy should be a HbA1c of <7% and that physicians should re-evaluate the treatment regimen in patients with HbA1c values consistently >8%. 50 Elevated levels of HbA1c suggest the need for more aggressive treatment of glycemia. The [place] [employer] Association recommends that a primary goal of therapy should be a HbA1c of <7% and that physicians should re-evaluate the treatment regimen in patients with HbA1c values consistently >8%. 51 Elevated levels of HbA1c suggest the need for more aggressive treatment of glycemia. The [place] [employer] Association recommends that a primary goal [...] pharyngeal specimens. Performed at: RN - [facility] [address] [id number] Internal Controls Manager: Sara Hunter MD, Phone: [phone] Note: Persistent reduction for 3 months [...] % 2HR URINE KET MODERATE 82 11/23/11 [facility] WRONG TEST 83 A1c value between 5.7% [...] test. Procedures Date Code Description Status 01/24/2019 50034 Admin Of Inj Completed 12/03/2018 40816 Admin Of Inj Completed 09/02/2018 40555 Admin Of Inj Completed 07/09/2018 [id number] Colonoscopy Completed 07/09/2018 36547 Colonoscopy Flexible Diagnostic Completed 05/30/2018 58978 Admin Of Inj Completed 03/12/2018 37789 Admin Of Inj Completed 10/09/2017 66415 Admin Of Inj Completed 05/29/2017 51069 Admin Of Inj Completed 02/06/2017 86468 Admin Of Inj Completed 10/26/2016 05596 Admin Of Inj Completed 04/27/2016 32775 Visual funct screen test, automated Completed 04/27/2016 32044 Pure Tone Hearing Test, Air Completed 12/27/2015 01692 Admin Of Inj Completed 08/03/2014 36676 Admin Of Inj Completed 04/06/2014 71314 Pure Tone Hearing Test, Air Completed 04/06/2014 00789 Visual funct screen test, automated Completed 08/04/2013 67241 Admin Of Inj Completed 02/17/2013 94950 Pure Tone-Air Condition Only Completed 06/26/2012 06141 Admin Of Inj Completed 02/12/2012 64081 Pure Tone-Air Condition Only Completed 02/12/2012 71919 Visual funct screen test, automated Completed 09/18/2011 23518 Admin Of Inj Completed 07/17/2011 19565 Admin Of Inj Completed 04/03/2011 91891 Admin Of Inj Completed 10/26/2010 26559 Admin Of Inj Completed 09/01/2010 44458 Visual funct screen test, automated Completed 09/01/2010 56139 Admin Of Inj Completed 09/01/2010 68765 Pure Tone-Air Condition Only Completed 07/22/2010 07977 Admin Of Inj Completed 04/21/2010 77656 Admin Of Inj Completed 12/29/2009 19746 Admin Of Inj Completed 09/29/2009 39560 Admin Of Inj Completed 09/01/2009 29721 Admin Of Inj Completed 08/25/2009 82272 Visual funct screen test, automated Completed 08/25/2009 11792 Pure Tone-Air Condition Only Completed 08/17/2008 10596 Screening Vision Test Completed 08/17/2008 38585 Pure Tone-Air Condition Only Completed Encounters Type Date Location Provider Dx Diagnosis Office Visit 03/03/2019 [facility] Igor E11.9 Type 2 diabetes 11:30a MD Nancy mellitus without complications R97.20 Elevated prostate specific antigen [PSA] E03.9 Hypothyroidism, unspecified I10 Essential (primary) hypertension Office Visit 12/03/2018 [facility] Igor E11.9 Type 2 diabetes 4:00[facility] MD Nancy mellitus without complications R97.20 Elevated prostate specific antigen [PSA] D51.9 Vitamin B12 deficiency anemia, unspecified Plan of Treatment Future Appointment(s):03/27/2019 3:45 pm - Igor Cruz MD at [facility]06/02/2019 4:00 pm - Igor Cruz MD at [facility] - Igor Cruz MDE11.9 Type 2 diabetes mellitus without complicationsNew Labs:Comp Metabolic Panel, Ordered: 03/03/19Follow up:2 weeks.R97.20 Elevated prostate specific antigen [PSA]E03.9 Hypothyroidism, [id number] Essential (primary) hypertension
--- OUTSIDE RECORDS SUMMARY | 2019-03-10 08:35 | XMS REPORT | Continuity of Care Document ---
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 [...] Protein - Dipstick Negative mg/dL Urine Specific [place] 1.020 1 1.01-1.03 Urine Urobilinogen - Dipstick [...] 31.7-36 Mean Platelet Volume 10.2 fL 6.6-10.6 [place] # 0.31 K/uL 0-0.8 [place] % 5.6 % 0-10 Neut# 3.97 K/uL [...] 4.2- 6.3 23, 24 finding (A1c) PSA ([place] Loci) 6.91 ng/mL 25 Reflex add FT4? [...] Import @[facility] Pat Id: [id number] @[facility] Req #: [id number] 1 Glycohemoglobin (A1c) 8.6 % High 4.2-6.3 [...] 31.7-36 Mean Platelet Volume 10.3 fL 6.6-10.6 [place] # 0.32 K/uL 0-0.8 [place] % 6.0 % 0-10 Neut# 3.31 K/uL [...] 31.7-36 Mean Platelet Volume 10.5 fL 6.6-10.6 [place] # 0.29 K/uL 0-0.6 [place] % 5.9 % 0-10 Neut# 3.09 K/uL [...] g/dL High 6.3-8 LDL Cholesterol Profile 04/06/2014 [facility] Import Cholesterol 172 mg/dL 120-200 HDL Cholesterol 64 mg/dL 29-83 LDL-Cholesterol 101 mg/dL 62-185 Triglycerides 36 mg/dL 16-231 Laboratory 04/06/2014 [facility] Import Microalbumin,Random 22.2 mg/L High 0 -18.5 test finding Urine Laboratory 03/12/2014N/[employer] Import Act Partial Thrombo 33.6 s 23.9- 34.3 62 test finding Time Urinalysis 03/12/2014N/[employer] Import Urine Bacteria Very Few With [place] [...] RBC TNTC rbc/hpf High 0-7 Urine Specific [place] 1.025 1 1.01-1.03 Urine Urobilinogen - Dipstick 0.2 E.U./dL 0.2-1 Urine WBC None Seen wbc/hpf 0-7 CBC W/Automated Diff 03/12/2014/[employer] Import Bas% 0.3 % 0.1-1 Baso # [...] Mean Platelet Volume 10.8 fL High 6.6-10.6 [place] # 0.31 K/uL 0-0.6 [place] % 5.4 % 0-10 Neut# 3.17 K/uL [...] Protein - Dipstick Negative mg/dL Urine Specific [place] >=1.030 1.01-1.03 Urine Urobilinogen - Dipstick 0.2 [...] 31.7-36 Mean Platelet Volume 10.5 fL 6.6-10.6 [place] # 0.32 K/uL 0-0.6 [place] % 5.8 % 0-10 Neut# 3.40 K/uL [...] 31.7-36 Mean Platelet Volume 9.9 fL 6.6-10.6 [place] # 0.30 K/uL 0-0.6 [place] % 6.2 % 0-10 Neut# 2.12 K/uL [...] Mean Platelet Volume 11.3 fL High 6.6-10.6 [place] # 0.31 K/uL 0-0.6 [place] % 6.4 % 0-10 Neut# 2.76 K/uL [...] for more aggressive treatment of glycemia. The Canadian Diabetes Association recommends that a primary goal [...] cannot be used interchangeably. Method: Siemens Dimension [place] Chemiluminescent immunoassay. 4 Vitamin D deficiency has been defined by the [place] and an Endocrine Society practice guideline as a level of serum 25-OH vitamin D less than 20 ng/mL (1,2). The Endocrine Society went on to further define vitamin D insufficiency as a level between 21 and 29 ng/mL (2). 1. IOM ([place]). 2010. Dietary reference intakes for calcium and D. [place]: The National Academies Press. 2. Mitesh MF, Adolfo NC, Lilly KOTHARI, et al. Evaluation, treatment, and prevention of vitamin D deficiency: an Endocrine Society clinical practice guideline. JCEM. 2010; 96(7):1911-30. Performed at: RN - [facility] [id number] Executive Candidate Developer: Sara Hunter MD, Phone: [phone] Note: Persistent reduction for 3 months [...] for more aggressive treatment of glycemia. The [place] Diabetes Association recommends that a primary goal of therapy should be a HbA1c of <7% and that physicians should re-evaluate the treatment regimen in patients with HbA1c values consistently >8%. 16 E11.40,R97.20 17 Elevated levels of HbA1c suggest the need for more aggressive treatment of glycemia. The [place] Diabetes Association recommends that a primary goal [...] assay methods cannot be used interchangeably. Method: The Optimata Chemiluminescent immunoassay. 19 Note: Persistent reduction for [...] for more aggressive treatment of glycemia. The [place] Diabetes Association recommends that a primary goal [...] for more aggressive treatment of glycemia. The [place] Diabetes Association recommends that a primary goal [...] methods cannot be used interchangeably. Method: Siemens Group 47ta Chemiluminescent immunoassay. 26 Note: Persistent reduction for [...] for more aggressive treatment of glycemia. The Canadian Diabetes Association recommends that a primary goal [...] for more aggressive treatment of glycemia. The [place] Diabetes Association recommends that a primary goal of therapy should be a HbA1c of <7% and that physicians should re-evaluate the treatment regimen in patients with HbA1c values consistently >8%. 36 Elevated levels of HbA1c suggest the need for more aggressive treatment of glycemia. The Canadian Diabetes Association recommends that a primary goal [...] for more aggressive treatment of glycemia. The Canadian Diabetes Association recommends that a primary goal [...] for more aggressive treatment of glycemia. The Canadian Diabetes Association recommends that a primary goal of therapy should be a HbA1c of <7% and that physicians should re-evaluate the treatment regimen in patients with HbA1c values consistently >8%. 50 Elevated levels of HbA1c suggest the need for more aggressive treatment of glycemia. The [place] Diabetes Association recommends that a primary goal of therapy should be a HbA1c of <7% and that physicians should re-evaluate the treatment regimen in patients with HbA1c values consistently >8%. 51 Elevated levels of HbA1c suggest the need for more aggressive treatment of glycemia. The [place] Diabetes Association recommends that a primary goal [...] pharyngeal specimens. Performed at: RN - [facility] [address] [id number] Executive Candidate Developer: Sara Hunter MD, Phone: [phone] Note: Persistent reduction for 3 months [...] test. Procedures Date Code Description Status 01/24/2019 98891 Admin Of Inj Completed 12/03/2018 82903 Admin Of Inj Completed 09/02/2018 77469 Admin Of Inj Completed 07/09/2018 [id number] Colonoscopy Completed 07/09/2018 02372 Colonoscopy Flexible Diagnostic Completed 05/30/2018 15376 Admin Of Inj Completed 03/12/2018 51829 Admin Of Inj Completed 10/09/2017 32342 Admin Of Inj Completed 05/29/2017 88307 Admin Of Inj Completed 02/06/2017 99998 Admin Of Inj Completed 10/26/2016 97753 Admin Of Inj Completed 04/27/2016 11767 Visual funct screen test, automated Completed 04/27/2016 40492 Pure Tone Hearing Test, Air Completed 12/27/2015 29959 Admin Of Inj Completed 08/03/2014 31637 Admin Of Inj Completed 04/06/2014 00736 Pure Tone Hearing Test, Air Completed 04/06/2014 54699 Visual funct screen test, automated Completed 08/04/2013 35632 Admin Of Inj Completed 02/17/2013 34939 Pure Tone-Air Condition Only Completed 06/26/2012 55778 Admin Of Inj Completed 02/12/2012 63189 Pure Tone-Air Condition Only Completed 02/12/2012 10982 Visual funct screen test, automated Completed 09/18/2011 32511 Admin Of Inj Completed 07/17/2011 74417 Admin Of Inj Completed 04/03/2011 31380 Admin Of Inj Completed 10/26/2010 97811 Admin Of Inj Completed 09/01/2010 21156 Visual funct screen test, automated Completed 09/01/2010 34913 Admin Of Inj Completed 09/01/2010 87930 Pure Tone-Air Condition Only Completed 07/22/2010 51094 Admin Of Inj Completed 04/21/2010 30697 Admin Of Inj Completed 12/29/2009 69011 Admin Of Inj Completed 09/29/2009 11811 Admin Of Inj Completed 09/01/2009 14185 Admin Of Inj Completed 08/25/2009 06266 Visual funct screen test, automated Completed 08/25/2009 83985 Pure Tone-Air Condition Only Completed 08/17/2008 95228 Screening Vision Test Completed 08/17/2008 91367 Pure Tone-Air Condition Only Completed Encounters Type Date Location Provider Dx Diagnosis Office Visit 12/03/2018 [facility] Igor E11.9 Type 2 diabetes 4:00p MD Nancy mellitus without complications R97.20 Elevated prostate specific antigen [PSA] D51.9 Vitamin B12 deficiency anemia, unspecified Plan of Treatment Future Appointment(s):03/27/2019 3:45 pm - Igor Cruz MD at [facility]06/02/2019 4:00 pm - Igor Cruz MD at [facility] - Igor Cruz MDE11.9 Type 2 diabetes mellitus without complicationsNew Labs:Comp Metabolic Panel, Ordered: 03/03/19Follow up:2 weeks.R97.20 Elevated prostate specific antigen [PSA]E03.9 Hypothyroidism, [id number] Essential (primary) hypertension
[2019-03-10 09:07] LABS: ABS Lymphocytes 1.2 10^3/ul (1.0-4.8); ABS Monocytes 0.7 10^3/ul (0-0.8); ABS Neutrophils 11.9 10^3/ul (1.5-7.7); Eosinophil % 0.1 %; Hematocrit 42 % (42-52); Hemoglobin 14.2 g/dL (14.0-18.0); Lymphocyte % 8.7 %; Mean Corpuscular HGB Conc 34 g/dL (31-36); Mean Corpuscular Hemoglobin 30 pg (27-31); Mean Corpuscular Volume 88 fL (80-94); Mean Platelet Volume 8.8 fL (7.4-10.4); Platelet Count 209 10^3/uL (150-450); Red Blood Count 4.77 10^6 /uL (4.18-5.48); Red Cell Distribution Width 13 % (10.5-15); White Blood Count 13.8 10^3/uL (3.5-10.8)
[2019-03-10 09:24] LABS: Activated Partial Thrombo Time 90.7 seconds (26.0-36.3); Albumin 4.1 g/dL (3.2-5.2); Albumin/Globulin Ratio 1.2 (1-3); BUN/Creatinine Ratio 24.2 (8-20); Calcium 8.7 mg/dL (8.6-10.3); EGFR African American 73.8 (>60); Globulin 3.5 g/dL (2-4); INR 1.15 (0.82-1.09); Magnesium 2.3 mg/dL (1.9-2.7); Potassium 4.7 mmol/L (3.5-5.0); Total Bilirubin 0.6 mg/dL (0.2-1.0); Total Protein 7.6 g/dL (6.4-8.9)
[2019-03-10 09:28] LABS: CKMB ng/mL 14.6 ng/mL (0.6-6.3); Troponin I 0.6 ng/mL (<0.04)
[2019-03-10] MEDS ORDERED: NS 0.9% 1000 ML** 2,000 ML IV ONE (10:03)
[2019-03-10] MEDS ORDERED: Insulin IVPB 100 units/100 ml 100 UNITS/100 ML UNIT IVPB ONE (10:03)
[2019-03-10] MEDS ORDERED: NS 0.9% 1000 ML** 1,000 ML IV SCH ×2 (10:15→15:45)
[2019-03-10] MEDS: NS 0.9% 1000 ML** 2,000 ML IV ONE (10:19)
[2019-03-10 10:24] LABS: TSH (Thyroid Stimulating Horm) 0.25 mcIU/mL (0.34-5.60)
[2019-03-10] MEDS ORDERED: Heparin DRIP 25,000 UNITS(*) 25,000 UNITS/500 ML BAG IV SCH ×2 (10:30→12:15)
[2019-03-10 11:57] LABS: BUN/Creatinine Ratio 29.8 (8-20); Calcium 7.4 mg/dL (8.6-10.3); EGFR African American 97.8 (>60); EGFR Non-African American 80.8 (>60); Potassium 4.2 mmol/L (3.5-5.0)
[2019-03-10 12:00] LABS: Urine Appearance Cloudy; Urine Bilirubin Negative (Negative); Urine Blood Negative (Negative); Urine Color Yellow; Urine Glucose 3+(>=500 mg/dL) (Negative); Urine Ketones 2+ (Negative); Urine Nitrite Negative (Negative); Urine Protein Negative (Negative); Urine Specific Gravity 1.022 (1.010-1.030); Urine Urobilinogen Negative (Negative)
[2019-03-10 12:02] LABS: Troponin I 1.38 ng/mL (<0.04)
--- NOTE | 2019-03-10 12:54 | HP ---
History of Present Illness - History of Present Illness Reason for Visit: high blood sugar History of Present Illness: Patient is 64 year old man with Type 2 diabetes, who went to bed last night with blood glucose >400. He had onset of vomiting, but he took some Novolog and went to bed. When he awoke, he had FS glucose >400, and vomiting returned. This morning he developed chest pain at rest, dyspnea, and he "turned blue." He denies palpitations, and diaphoresis. The patient went to [facility] ER, was found to have DKA, and elevated troponin. The chest pain resolved in the ER> He was transferred to [facility] ER for availability of cardiology. In [place] he was given 9 units of regular insulin IV, and insulin drip was started at 9.1 u/hr. He was also given a bolus of heparin IV at 5443 units and then a heparin drip at 1085 units/hr. He took an aspirin at home this morning. Patient has had difficulty in controlling diabetes in the past 2 months. He think he was diagnosed with Type 2 diabetes in 2011. He has had frequent hypoglycemia, with FS in 40s, with confusion, combativeness in last [address] Cruz, and Toujeo was increased to 95 units from 90, then decreased back to 90 due to hypoglycemia. He was taken off Trulicity. He was started on metformin, but he decided not to start it and elected to fast instead. He has been eating zero carbohydrates for several days, and has been alarmed that his sugar is rising despite avoiding sugar intake. PCP: Dr. 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 Alcohol: Heavy - one 6-pack/day lite beer Drugs: None Lives: With Family - Nusrat is HCP, no children Domestic Violence: Negative Review of Systems - Measurements Intake and Output: Intake and Output Last 24 Hours 03/08/19 03/09/19 03/10/19 03/11/19 06:59 06:59 06:59 06:59 Intake Total 1999 Balance 2000 Weight 90.718 kg Intake: IV Fluids 2000 - Review of Systems Constitutional Symptoms: Positive: Weakness, Fatigue Dermatology: Positive: Normal HEENT: Positive: Normal Eyes: Positive: Normal Thyroid: Positive: Primary Hypothyroidism Pulmonary: Positive: Shortness of Breath Negative: Cough Cardiology: Positive: Chest Pain, Shortness of Breath Negative: Palpitations, Edema, Syncope Gastroenterology: Positive: Nausea, Vomiting Negative: Abdominal Pain, Diarrhea Genital - Urinary: Positive: Normal Genitourinary - Male: Positive: Prostatism Endocrinology: Positive: Thyroid Problems, Diabetes Mellitus Hematologic/Lymphatic: Negative: Anemia Neurology: Positive: Headache Psychiatry: Positive: Normal Objective Active Medications: Home Meds: Doxazosin Mesylate (Cardura Tab*) 8 mg PO DAILY MAURICIO Levothyroxine Sodium (Synthroid Tab*) 175 mcg PO 0600 MAURICIO Valsartan (Diovan Tab*) 320 mg PO DAILY MAURICIO Insulin Glargine (Nf) [Toujeo Solostar Pen (NF)] 90 unit SC QAM 03/10/19 metFORMIN* [Glucophage 500 MG TAB *] 500 mg PO BID 03/10/19 Novolog sliding scale, 2 units for each 50 units over 150 FS Vital Signs - 8 hr 03/10/19 03/10/19 03/10/19 08:26 08:27 08:34 Temperature 37.2 C Pulse Rate 98 102 Respiratory 24 22 18 Rate Blood Pressure 134/76 134/76 (mmHg) O2 Sat by Pulse 99 100 Oximetry 03/10/19 03/10/19 03/10/19 10:57 11:00 11:27 Temperature Pulse Rate 94 99 98 Respiratory 21 20 26 Rate Blood Pressure 122/65 131/71 (mmHg) O2 Sat by Pulse 100 99 99 Oximetry 03/10/19 03/10/19 03/10/19 11:57 12:00 12:37 Temperature 36.9 C Pulse Rate 92 Respiratory 20 24 30 Rate Blood Pressure 130/71 126/74 (mmHg) O2 Sat by Pulse 98 Oximetry Oxygen Devices in Use Now: None Appearance: alert, no distress, ketones on breath Eyes: No Scleral Icterus Ears/Nose/Mouth/Throat: NL Teeth, Lips, Gums Neck: NL Appearance and Movements; NL JVP, Trachea Midline Respiratory: Symmetrical Chest Expansion and Respiratory Effort, Clear to Auscultation Cardiovascular: NL Sounds; No Murmurs; No JVD, RRR, No Edema Abdominal: NL Sounds; No Tenderness; No Distention Lymphatic: No Cervical Adenopathy, No Axillary Adenopathy Extremities: No Edema Skin: No Rash or Ulcers Neurological: Alert and Oriented x 3, - - verbose Lines/Tubes/Other Access: Clean, Dry and Intact Peripheral IV Result Diagrams: 03/10/19 08:54 03/10/19 13:45 Additional Lab and Data: Laboratory Tests 03/10/19 03/10/19 03/10/19 08:30 08:54 08:54 ABG pH ABG pCO2 ABG pO2 ABG HCO3 Sodium 131 L Potassium Carbon Dioxide 10 L* Anion Gap 18 H Creatinine 1.20 H Glucose 277 H POC Glucose (mg/dL) 297 H Lactic Acid Calcium Magnesium 2.3 AST 25 ALT 20 Troponin I 0.60 H* B-Natriuretic Peptide 22 TSH 0.25 L 03/10/19 03/10/19 03/10/19 08:56 09:08 11:31 ABG pH 7.25 L ABG pCO2 21 L ABG pO2 134 H ABG HCO3 12.5 L Sodium 130 L Potassium 4.2 Carbon Dioxide 13 L* Anion Gap 9 Creatinine 0.94 Glucose 187 H POC Glucose (mg/dL) Lactic Acid 1.1 Calcium 7.4 L Magnesium AST ALT Troponin I 1.38 H* B-Natriuretic Peptide TSH 03/10/19 03/10/19 03/10/19 11:50 12:55 13:45 ABG pH ABG pCO2 ABG pO2 ABG HCO3 Sodium 132 L Potassium 3.9 Carbon Dioxide 16 L Anion Gap Creatinine Glucose 154 H POC Glucose (mg/dL) 175 H 141 H Lactic Acid Calcium 7.6 L Magnesium AST ALT Troponin I 1.85 H* B-Natriuretic Peptide TSH Diagnostic Imaging: CXR: no infiltrates/effusions EKG Data: Normal sinus rhythm, normal axis, Qs III, aVF, IVCD, T-wave inversions V5-V5 Assess/Plan/Problems-Billing Assessment: 64 year old man with DKA and probable non-STEMI. - Patient Problems (1) DKA (diabetic ketoacidoses) Current Visit: Yes Status: Acute Priority: High Code(s): E11.10 - TYPE 2 DIABETES MELLITUS WITH KETOACIDOSIS WITHOUT COMA SNOMED Code(s): 192346700 Comment: Patient will be admitted to ICU on insulin drip and continued volume resucitation. Goal will be to bring glucose down <200, and close anion gap. Trigger for DKA could be GI illness with vomiting, or his fasting could cause element of starvation ketosis. Thought to be Type 2 diabetic, but may be ketosis-prone Type 2 or undiagnosed Type 1. Once anion gap closed, will reintroduce food, subcut insulin. Will benefit from endocrinology consult, Dr. Pizano contacted. (2) Non-STEMI (non-ST elevated myocardial infarction) Current Visit: Yes Status: Acute Priority: High Code(s): I21.4 - NON-ST ELEVATION (NSTEMI) MYOCARDIAL INFARCTION SNOMED Code(s): 06267846 Comment: -Patient at high risk of CAD, with past tobacco use, diabetes, hypertension -Will continue heparin drip, and aspiring for anti-thrombosis effect -start metoprolol to reduce myocardial oxygen demand, ischemia, and arrhythmias -Consulted with Dr. Silva, she will see patient today. -May need to proceed directly to cardiac cath once DKA resolved. (3) Hypothyroidism Current Visit: Yes Status: Acute Priority: Medium Code(s): E03.9 - HYPOTHYROIDISM, UNSPECIFIED SNOMED Code(s): 68314075 Comment: -hypothyoidism appears overtreated, will decrease L-thyroxine dose (4) DVT prophylaxis Current Visit: Yes Status: Acute Priority: Low Code(s): Z29.9 - ENCOUNTER FOR PROPHYLACTIC MEASURES, UNSPECIFIED SNOMED Code(s): 892572230 Comment: -on IV heparin -SCDs initiated Status and Disposition: inpatient, ICU monitoring of insulin drip required.
[2019-03-10] MEDS ORDERED: D5NS 0.9% 1000 ML BAG* 1,000 ML IV SCH (13:00)
[2019-03-10] MEDS ORDERED: Metoprolol Tartrate TAB* 25 MG PO SCH (13:00)
[2019-03-10] MEDS ORDERED: Insulin IVPB 100 units/100 ml 100 UNITS/100 ML UNIT IVPB SCH (13:00)
[2019-03-10] MEDS ORDERED: Levothyroxine TAB* 175 MCG TAB PO SCH (13:30)
[2019-03-10] MEDS: Levothyroxine TAB* 150 MCG TAB PO SCH (14:12)
[2019-03-10 14:34] LABS: Anion Gap 7 mmol/L (2-11); BUN/Creatinine Ratio 28.9 (8-20); Blood Urea Nitrogen 26 mg/dL (6-24); CO2 Carbon Dioxide 16 mmol/L (22-32); Calcium 7.6 mg/dL (8.6-10.3); Chloride 109 mmol/L (101-111); EGFR African American 102.8 (>60); Glucose 154 mg/dL (70-100); Potassium 3.9 mmol/L (3.5-5.0); Sodium 132 mmol/L (135-145)
[2019-03-10 14:40] LABS: Troponin I 1.85 ng/mL (<0.04)
[2019-03-10] MEDS ORDERED: Dextrose 50% Syringe 50 ML* 25 GM/50 ML SYRINGE IV PUSH PRN (15:36)
[2019-03-10] MEDS: Metoprolol Tartrate TAB* 25 MG PO SCH (16:19)
--- NOTE | 2019-03-10 17:07 | CONS ---
CC: Dr. Cruz; Hospitalist Service CONSULTATION REPORT: DATE OF CONSULT: 03/10/19 REASON FOR CONSULT: Chest discomfort and elevated troponins. CHIEF COMPLAINT: High sugars, racing heart, pleuritic chest pain. HISTORY OF PRESENT ILLNESS: Mr. iKmble is a 64-year-old gentleman with diabetes (type 2). He had st ated that his sugars have been getting quite high and difficult to control. It went up to 400. It d id not respond to insulin and then went to the 450. At that point, he was having racing heart. He d escribes pleuritic chest discomfort as well as vomiting up his lunch of many hours before and at that point he decided to come to the hospital. The patient tells me that he had recently gone off Trulicity and on to metformin and had made adjustm ents in his insulin by Dr. Cruz. He has about a 4 to 5-day history of a cough, not particularly productive. He denies ever having had chest pain, pressure before the above event. He has never been evaluated by a press set up person. The patient denies orthopnea. PAST MEDICAL HISTORY: The patient has a past medical history of: 1. Type 2 diabetes. 2. Hypertension. 3. Hypothyroid disease. PAST SURGICAL HISTORY: Includes polypectomy in 2005 and 2006. OUTPATIENT MEDICATIONS: Included: 1. Metformin 500 mg b.i.d. 2. Toujeo (glargine insulin). 3. Valsartan 320 mg a day. 4. Cardura 8 mg a day. 5. Levothyroxine 175 mcg a day. ALLERGIES: The patient has no known medication allergies. FAMILY HISTORY: Significant for diabetes in his mother and brothers. His mother old. His [facility] er at age 54 from complications of diabetes. SOCIAL HISTORY: Significant, in that he smoked in the past, quit many years ago. Admits to drinking 6 alcoholic beverages a day. 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 REVIEW OF SYSTEMS: Negative for fevers, chills, sweats. Positive for cough productive of thin sputu m. Positive for the vomiting today as above. He denied diarrhea, constipation, hematuria, dysuria, and he denied exertional discomfort or any prior history of chest discomfort or exertional symptoms u ntil this presentation. All other 14-point review of systems was negative. PHYSICAL EXAM: The patient is 5 feet 11 inches, weighs 200 pounds with a BMI of 28. General Appearance: Older middle-aged gentleman, lying flat, appears comfortable. He was sleep ing, but easily arousable. Psychologically, pleasant and cooperative. Neurologically, awake, alert, and oriented to person and place. I did not evaluate for time. Skin: Mediterranean complexion, wa rm, dry, without appreciable cyanosis of the lips. Palms are pale, but nail beds were free of cyanos is. HEENT: Mucous membranes moderately moist. Neck without appreciable increase in JVP. 2+ caroti d pulses bilaterally, free of bruits. Breath sounds were clear with good effort. No wheezes, rales, or rhonchi. Coronary: S1, S2, regular. No rubs. No murmurs. No extra heart sounds. Abdomen: A ctive bowel sounds. Flat, soft. No appreciable hepatomegaly. Lower extremities were free of edema, with 2 to 3+ posterior tibial pulses and 2 to 3+ radial pulses that are symmetrical. DIAGNOSTIC STUDIES/LAB DATA: White count 13.8, hematocrit 42, platelets 209. INR 1.55, PTT 91. ABG from 9 this morning; pH 9.25, pCO2 21, pO2 134. Sodium 132, potassium 3.2, bicarb 16 (improved from 13 at 11:30), BUN 26, creatinine 0.9, glucose 154. Troponin at [facility] initially 0.60 , #2 of 1.38, #3 of 1.85. TSH 0.25, low. BNP 22. Total protein 7.6, albumin 4.1, magnesium 2.3. No rmal transaminases. Urinalysis: Specific gravity 1.022, 2+ ketones, nitrite negative, esterase nega tive, 3+ glucose. The patient had been transferred from [facility]. Labs there were reviewed and his initial anion gap was 20 and pCO2 of 10. Initial troponin in [place] was 0.97. Initial ABG in [place]; pH 7.11, pCO2 24, pO2 81. Baseline EKG from 08/30/18 shows normal sinus rhythm at 76 beats per minute, QRS axis +60 with normal AV conduction times. He has a nonspecific QRS duration. EKG done 03/10/19 this morning at 5:46 a.m. shows sinus tachycardia at 100 beats per minute, QRS axis +75, normal AV conduction times, nonspecific intraventricular conduction delay. He has inverted T-w aves in the lateral leads V4 through V6 in the inferior leads, some motion artifact and some nonspeci fic ST elevation in the precordial leads. Repeat EKG here this morning at 8:25 shows normal sinus rhythm at 96 beats per minute, QRS axis +60, normal AV conduction times, ST depression in the lateral leads less pronounced that the ST elevation in the precordial leads appears J- point. He does have inferior Qs that are small. Repeat EKG done at 1420 today shows normal sinus rhythm at 83 beats per minute, further improvement o f the lateral ST depression and precordial ST degree is stable, but the coving is subtly more concern ing. IMPRESSION AND PLAN: In summary, Leroy Kimble is a 64-year-old gentleman with type 2 diabetes, hyp ertension, former smoker, I do not have his lipid status at this point, who presented in diabetic ket oacidosis, but additionally he had chest discomfort, has mildly elevated troponins and EKG with subtl e abnormalities. He has received unfractionated heparin and low-dose beta-saul. I would recommend empiric statins, high-dose, unless he has had a previous allergy or intolerance (Li pitor 80 mg a day), I would recommend more aggressive beta blockade and lowering of his CHEKO inhibitor to allow blood pressure room for this, may take some gentle titration in the setting of diabetic ket oacidosis. Baby aspirin and continuation of unfractionated heparin for 48 hours. I proposed getting an echo to look at ventricular wall thickness, any wall motion abnormalities, and overall ventricular function. Once the patient is metabolically stabilized, we could consider whether we get a stress test on him o r proceed to cardiac catheterization. An exercise stress test would be reasonable in him as he state s he had no exertional symptoms prior to this event and he is at risk for type 2/demand ischemia with his significant diabetic and hypertensive history and not just large vessel coronary artery disease. I consider this gentleman high risk and overall we need to obtain lipids from his primary care and/or repeat them while he is here. His low TSH indicating hyperthyroid state is noted and the hospitalists have adjusted, decreased his thyroid replacement and this may also decrease the work of the heart. [id number]/[facility] #: [id number]
[2019-03-10 17:50] LABS: Cholesterol 117 mg/dL; LDL Cholesterol 63 mg/dL; Triglycerides 54 mg/dL
[2019-03-10] MEDS: Insulin LISPRO* 1 UNITS UNIT SUBCUT SCH ×2 (17:59→20:10)
[2019-03-10 18:11] LABS: Troponin I 2.74 ng/mL (<0.04)
[2019-03-10] MEDS ORDERED: Heparin VIAL(*) 5000 UNITS/ML VIAL (FIVE THOUSAND) IV PRN (18:14)
[2019-03-10 22:27] LABS: ALT 18 U/L (7-52); AST 31 U/L (13-39); Albumin 3.4 g/dL (3.2-5.2); Albumin/Globulin Ratio 1.2 (1-3); Alkaline Phosphatase 66 U/L (34-104); Anion Gap 6 mmol/L (2-11); BUN/Creatinine Ratio 20.8 (8-20); Blood Urea Nitrogen 21 mg/dL (6-24); CO2 Carbon Dioxide 19 mmol/L (22-32); Calcium 7.9 mg/dL (8.6-10.3); Chloride 107 mmol/L (101-111); Creatine Kinase 223 U/L (10-223); EGFR Non-African American 74.4 (>60); Globulin 2.9 g/dL (2-4); Glucose 322 mg/dL (70-100); Potassium 4.2 mmol/L (3.5-5.0); Sodium 132 mmol/L (135-145); Total Protein 6.3 g/dL (6.4-8.9)
[2019-03-10 22:32] LABS: CKMB ng/mL 18.2 ng/mL (0.6-6.3)
[2019-03-10] MEDS ORDERED: Insulin GLARGINE(*) 1 UNITS UNIT ONE (22:56)
[2019-03-10] MEDS: Insulin GLARGINE(*) 1 UNITS UNIT SUBCUT SCH (23:00)
[2019-03-11] MEDS: Insulin LISPRO* 1 UNITS UNIT SUBCUT SCH ×7 (01:20→23:50)
[2019-03-11] MEDS: Levothyroxine TAB* 150 MCG TAB PO SCH (04:20)
[2019-03-11] MEDS: Metoprolol Tartrate TAB* 25 MG PO SCH (04:20)
[2019-03-11 04:28] LABS: BUN/Creatinine Ratio 17.2 (8-20); Calcium 8.1 mg/dL (8.6-10.3); EGFR Non-African American 81.8 (>60); Potassium 3.8 mmol/L (3.5-5.0)
[2019-03-11 04:33] LABS: Troponin I 3.52 ng/mL (<0.04)
[2019-03-11] MEDS ORDERED: Insulin GLARGINE(*) 1 UNITS UNIT SUBCUT SCH (08:00)
--- NOTE | 2019-03-11 08:52 | ECHO ---
*[facility]* [place] [address] Fax #: [phone] Transthoracic Echocardiogram Patient: Shyanne, Height: 71 in / Leroy Nolasco 180.3 cm : 1955 Weight: 199.6 lb / Study Date: 03/11/2019 90.7 kg Age: 64 BP: 146 / 88 Gender: M BMI/BSA: 27.9 kg/m^2 HR: 70 bpm / 2.11 m^2 *Chemical Inspector: * Gema Garcia [facility] *Referring Physician: * Franny Silva MD *Reading Physician: * Jaycob Jefferson MD Indications: Chest Pain, unspecified. History: Risk factors: Former tobacco use. Hypertension. Diabetes mellitus. ETOH use. Conclusions Summary: 1. Left ventricle: The cavity size is normal. There is mild concentric hypertrophy. Systolic function is mildly reduced. The estimated ejection fraction is 40-45%, by visual assessment. Hypokinesis of the basalanteroseptal and inferoseptal myocardium. Hypokinesis of the basal-midinferolateral and inferior myocardium. Doppler parameters are consistent with abnormal left ventricular relaxation (grade 1 diastolic dysfunction). 2. Left atrium: The atrium is mildly dilated. 3. Right atrium: The atrium is mildly dilated. 4. Mitral valve: There is mild regurgitation. 5. Aortic valve: There is trace regurgitation. 6. Tricuspid valve: There is trace to mild regurgitation. 7. No previous echocardiogram available. Study data: Transthoracic echocardiogram. Procedure: Transthoracic echocardiography was performed. Image quality was fair. Complete 2D, spectral Doppler, and color flow Doppler. Location: ICU Patient status: Inpatient. Patient room number: ICU-5. Rhythm: Normal sinus rhythm. Findings Left ventricle: The cavity size is normal. There is mild concentric hypertrophy. Systolic function is mildly reduced. The estimated ejection fraction is 40-45%, by visual assessment. Regional wall motion abnormalities: Hypokinesis of the basalanteroseptal and inferoseptal myocardium. Hypokinesis of the basal-midinferolateral and inferior myocardium. Doppler parameters are consistent with abnormal left ventricular relaxation (grade 1 diastolic dysfunction). Right ventricle: The cavity size is normal. Systolic function is normal. Left atrium: The atrium is mildly dilated. Right atrium: The atrium is mildly dilated. Mitral valve: The annulus is mildly calcified. The leaflets are mildly thickened. There is no evidence of stenosis. There is mild regurgitation. Aortic valve: The valve is trileaflet. The leaflets are mildly thickened. There is no evidence of stenosis. There is trace regurgitation. Tricuspid valve: The leaflets are normal thickness. There is no evidence of stenosis. There is trace to mild regurgitation. Pulmonic valve: Not well visualized. There is no evidence of stenosis. There is trace regurgitation. Aorta: Ascending aorta: The ascending aorta is appears normal. Aortic arch: The aortic arch is appears normal. The aortic root is not dilated. Pericardium: A prominent pericardial fat pad is present. There is no pericardial effusion. Pulmonary arteries: Not well visualized. Systemic veins: Inferior vena cava: The vessel is normal in size. The respirophasic diameter changes are in the normal range (>= 50%). Measurements Left ventricle Value Ref Aortic valve Value Ref JAGDISH, LAX 5.2 cm 4.2 - 5.8 Adolph diam, ED 2.2 cm ----- ESD, LAX (H) 4.2 cm 2.5 - 4.0 Peak v, S 1.56 m/sec ----- FS, LAX (L) 20 % 25 - 43 VTI, S 31.4 cm ----- PW, ED, LAX (H) 1.3 cm 0.6 - 1.0 Mean grad, S 5.0 mm Hg ----- FS (L) 20 % 25 - 43 Peak grad, S 10.0 mm Hg ----- PW, ED (H) 1.3 cm 0.6 - 1.0 LVOT/AV, VTI ratio 0.64 ----- E', lat adolph, TDI (L) 8.2 cm/sec >=10.0 SOILA, VTI 2.00 cm^2 --- -- E/e', lat adolph, 10 SOILA, Vmax 1.90 cm^2 ----- TDI E', med adolph, TDI (L) 3.6 cm/sec >=7.0 Mitral valve Value Ref E/e', med adolph, 22 Peak E 0.79 m/sec ----- TDI Peak A 1 m/sec ----- E', avg, TDI 5.9 cm/sec Decel time 331 ms ----- E/e', avg, TDI 13 <=14 Peak grad, D 2.5 mm Hg --- -- Peak E/A ratio 0.8 ----- LVOT Value Ref Diam, S 2.00 cm Pulmonic valve Value Ref Area 3.1 cm^2 Peak v, S 0.8 m/sec ----- Peak beti, S 0.95 m/sec Peak grad, S 3.0 mm Hg ----- VTI, S 20.0 cm Mean grad, S 2 mm Hg Tricuspid valve Value Ref SV 55 ml TR peak v 2.24 m/sec <=2.8 Peak RV-RA grad, S 20 mm Hg ----- Ventricular septum Value Ref Max TR beti 2.24 m/sec ----- IVS, ED (H) 1.2 cm 0.6 - 1.0 Aortic root Value Ref Right ventricle Value Ref Root diam 3.3 cm <4.2 JAGDISH, LAX 3.1 cm JAGDISH minor ax, A4C (H) 3.7 cm 1.9 - 3.5 Ascending aorta Value Ref mid AAo AP diam, S 3.1 cm ----- Pressure, S 23 mm Hg Aortic arch Value Ref Left atrium Value Ref Arch diam 2.4 cm ----- AP dim, ES 3.90 cm 3.00 - 4.00 Decending aorta Value Ref ML dim, A4C 4.0 cm Lorena peak beti 0.77 m/sec ----- SI dim, A4C 6.3 cm Vol/bsa, ES, 1-p 24 ml/m^2 12 - 37 Pulmonary artery Value Ref A4C Pressure, S 20.0 mm Hg ----- Vol/bsa, ES, A/L (H) 37 ml/m^2 16 - 34 Inferior vena cava Value Ref Right atrium Value Ref Diam 2.0 cm ----- SI dim, ES 5.1 cm 3.4 - 5.3 ML dim, ES, A4C (H) 5.1 cm 2.6 - 4.4 SI dim, ES, A4C 5.1 cm 3.4 - 5.3 SI dim/bsa, ES, 2.4 cm/m^2 1.8 - 3.0 A4C Estimated RAP 3 mm Hg Legend: (L) and (H) erinn values outside specified reference range. Prepared and electronically signed by Jaycob Jefferson MD 03/11/2019 08:51
[2019-03-11] MEDS ORDERED: Doxazosin TAB* 2 MG PO SCH (09:00)
[2019-03-11] MEDS ORDERED: Aspirin EC TAB* 81 MG TAB.EC PO SCH (09:00)
[2019-03-11] MEDS ORDERED: Valsartan TAB* 160 MG PO SCH ×2 (09:00)
--- NOTE | 2019-03-11 09:36 | PN ---
<Luba Thurman - Last Filed: 03/11/19 09:30> Subjective Date of Service: 03/11/19 - NSTEMI, DKA Interval History: Patient sitting in bed upon entering room. 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 Denies SOB, dizziness or chest pain at this point in time. No recurrent chest pain since he presented to the hospital per patient. Medications Active Medications: Aspirin (Aspirin Ec Tab*) 81 mg PO DAILY [facility] Dextrose (D50w Syringe 50 Ml*) 12.5 gm IV PUSH .FOR FS < 60 - SS PRN PRN Reason: FS < 60 Doxazosin Mesylate (Cardura Tab*) 8 mg PO DAILY [facility] Heparin Sodium (Porcine) (Heparin Vial(*)) 0 units IV .PER PROTOCOL PRN PRN Reason: SEE PROTOCOL Last Admin: 03/10/19 18:25 Dose: 3,000 units Heparin Sodium/Dextrose (Heparin Drip 25,000 Units(*)) 25,000 units in 500 mls @ 0 mls/hr IV PER RATE [facility]; Protocol Last Admin: 03/11/19 01:17 Dose: 800 mls/hr Sodium Chloride (Ns 0.9% 1000 Ml) 1,000 mls @ 100 mls/hr IV PER RATE [facility] Last Admin: 03/10/19 15:56 Dose: 100 mls/hr Insulin Glargine (Lantus(*)) 60 units SUBCUT Q24H [facility] Last Admin: 03/10/19 23:00 Dose: 60 units Insulin Human Lispro (Humalog*) 0 units SUBCUT FS Q4 ICU [facility]; Protocol Last Admin: 03/11/19 04:14 Dose: 6 units Levothyroxine Sodium (Synthroid Tab*) 150 mcg PO DAILY@0600 [facility] Last Admin: 03/11/19 04:20 Dose: 150 mcg Metoprolol Tartrate (Lopressor Tab*) 25 mg PO Q12H [facility] Last Admin: 03/11/19 04:20 Dose: 25 mg Valsartan (Diovan Tab*) 240 mg PO DAILY [facility] Objective Vital Signs: Temp Pulse Resp BP Pulse Ox 98.3 F 79 19 146/88 96 03/11/19 08:00 03/11/19 06:00 03/11/19 06:00 03/11/19 06:00 03/11/19 06:00 Oxygen Devices in Use Now: None Appearance: well nourished, A+ O x3, cooperative with exam. Ears/Nose/Mouth/Throat: NL Teeth, Lips, Gums, Mucous Membranes Moist Neck: NL Appearance and Movements; NL JVP, Trachea Midline Respiratory: Symmetrical Chest Expansion and Respiratory Effort, Clear to Auscultation Cardiovascular: NL Sounds; No Murmurs; No JVD, No Edema Abdominal: NL Sounds; No Tenderness; No Distention Extremities: No Edema Neurological: Alert and Oriented x 3 Lines/Tubes/Other Access: Clean, Dry and Intact Peripheral IV Laboratory Results: 03/10/19 08:54 03/11/19 03:50 INR (Anticoag Therapy) 1.15 (0.82-1.09) H 03/10/19 08:54 APTT 49.3 seconds (26.0-36.3) H 03/11/19 06:30 Total Bilirubin 0.50 mg/dL (0.2-1.0) 03/10/19 22:00 AST 31 U/L (13-39) 03/10/19 22:00 ALT 18 U/L (7-52) 03/10/19 22:00 Alkaline Phosphatase 66 U/L (34-104) 03/10/19 22:00 CK-MB (CK-2) 16.0 ng/mL (0.6-6.3) H 03/11/19 03:50 B-Natriuretic Peptide 22 pg/mL (<=100) 03/10/19 08:54 Total Protein 6.3 g/dL (6.4-8.9) L 03/10/19 22:00 Albumin 3.4 g/dL (3.2-5.2) 03/10/19 22:00 Globulin 2.9 g/dL (2-4) 03/10/19 22:00 Albumin/Globulin Ratio 1.2 (1-3) 03/10/19 22:00 Triglycerides 54 mg/dL 03/10/19 17:19 Cholesterol 117 mg/dL 03/10/19 17:19 LDL Cholesterol 63 mg/dL 03/10/19 17:19 HDL Cholesterol 43.0 mg/dL 03/10/19 17:19 TSH 0.25 mcIU/mL (0.34-5.60) L 03/10/19 08:54 03/10/19 03/10/19 03/10/19 08:54 11:31 13:45 Troponin I 0.60 H* 1.38 H* 1.85 H* 03/10/19 03/10/19 03/11/19 17:19 22:00 03:50 Troponin I 2.74 H* 3.40 H* 3.52 H* Laboratory Results - last 24 hr 03/10/19 03/10/19 03/10/19 08:30 08:54 08:54 APTT Sodium Potassium Chloride Carbon Dioxide 10 L* Anion Gap BUN Creatinine Est GFR ( Amer) Est GFR (Non-Af Amer) BUN/Creatinine Ratio Glucose POC Glucose (mg/dL) 297 H Hemoglobin A1c 8.7 H Calcium Total Bilirubin AST ALT Alkaline Phosphatase Total Creatine Kinase CK-MB (CK-2) Troponin I Total Protein Albumin Globulin Albumin/Globulin Ratio Triglycerides Cholesterol LDL Cholesterol HDL Cholesterol TSH 0.25 L Urine Color Urine Appearance Urine pH Ur Specific [place] Urine Protein Urine Ketones Urine Blood Urine Nitrate Urine Bilirubin Urine Urobilinogen Ur Leukocyte Esterase Urine Glucose 03/10/19 03/10/19 03/10/19 10:26 11:31 11:46 APTT Sodium 130 L Potassium 4.2 Chloride 108 Carbon Dioxide 13 L* Anion Gap 9 BUN 28 H Creatinine 0.94 Est GFR ( Amer) 97.8 Est GFR (Non-Af Amer) 80.8 BUN/Creatinine Ratio 29.8 H Glucose 187 H POC Glucose (mg/dL) 221 H Hemoglobin A1c Calcium 7.4 L Total Bilirubin AST ALT Alkaline Phosphatase Total Creatine Kinase CK-MB (CK-2) Troponin I 1.38 H* Total Protein Albumin Globulin Albumin/Globulin Ratio Triglycerides Cholesterol LDL Cholesterol HDL Cholesterol TSH Urine Color Yellow Urine Appearance Cloudy Urine pH 5.0 Ur Specific [place] 1.022 Urine Protein Negative Urine Ketones 2+ A Urine Blood Negative Urine Nitrate Negative Urine Bilirubin Negative Urine Urobilinogen Negative Ur Leukocyte Esterase Negative Urine Glucose 3+(>=500 mg/dl) A 03/10/19 03/10/19 03/10/19 11:50 12:55 13:45 APTT Sodium 132 L Potassium 3.9 Chloride 109 Carbon Dioxide 16 L Anion Gap 7 BUN 26 H Creatinine 0.90 Est GFR ( Amer) 102.8 Est GFR (Non-Af Amer) 85.0 BUN/Creatinine Ratio 28.9 H Glucose 154 H POC Glucose (mg/dL) 175 H 141 H Hemoglobin A1c Calcium 7.6 L Total Bilirubin AST ALT Alkaline Phosphatase Total Creatine Kinase CK-MB (CK-2) Troponin I 1.85 H* Total Protein Albumin Globulin Albumin/Globulin Ratio Triglycerides Cholesterol LDL Cholesterol HDL Cholesterol TSH Urine Color Urine Appearance Urine pH Ur Specific [place] Urine Protein Urine Ketones Urine Blood Urine Nitrate Urine Bilirubin Urine Urobilinogen Ur Leukocyte Esterase Urine Glucose 03/10/19 03/10/19 03/10/19 13:47 14:45 17:16 APTT Sodium Potassium Chloride Carbon Dioxide Anion Gap BUN Creatinine Est GFR ( Amer) Est GFR (Non-Af Amer) BUN/Creatinine Ratio Glucose POC Glucose (mg/dL) 161 H 162 H 157 H Hemoglobin A1c Calcium Total Bilirubin AST ALT Alkaline Phosphatase Total Creatine Kinase CK-MB (CK-2) Troponin I Total Protein Albumin Globulin Albumin/Globulin Ratio Triglycerides Cholesterol LDL Cholesterol HDL Cholesterol TSH Urine Color Urine Appearance Urine pH Ur Specific [place] Urine Protein Urine Ketones Urine Blood Urine Nitrate Urine Bilirubin Urine Urobilinogen Ur Leukocyte Esterase Urine Glucose 03/10/19 03/10/19 03/10/19 17:19 17:19 20:01 APTT 39.1 H Sodium Potassium Chloride Carbon Dioxide Anion Gap BUN Creatinine Est GFR ( Amer) Est GFR (Non-Af Amer) BUN/Creatinine Ratio Glucose POC Glucose (mg/dL) 394 H Hemoglobin A1c Calcium Total Bilirubin AST ALT Alkaline Phosphatase Total Creatine Kinase CK-MB (CK-2) Troponin I 2.74 H* Total Protein Albumin Globulin Albumin/Globulin Ratio Triglycerides 54 Cholesterol 117 LDL Cholesterol 63 HDL Cholesterol 43.0 TSH Urine Color Urine Appearance Urine pH Ur Specific [place] Urine Protein Urine Ketones Urine Blood Urine Nitrate Urine Bilirubin Urine Urobilinogen Ur Leukocyte Esterase Urine Glucose 03/10/19 03/11/19 03/11/19 22:00 00:16 00:20 APTT 79.5 H Sodium 132 L Potassium 4.2 Chloride 107 Carbon Dioxide 19 L Anion Gap 6 BUN 21 Creatinine 1.01 Est GFR ( Amer) 90.0 Est GFR (Non-Af Amer) 74.4 BUN/Creatinine Ratio 20.8 H Glucose 322 H POC Glucose (mg/dL) 125 H Hemoglobin A1c Calcium 7.9 L Total Bilirubin 0.50 AST 31 ALT 18 Alkaline Phosphatase 66 Total Creatine Kinase 223 CK-MB (CK-2) 18.2 H Troponin I 3.40 H* Total Protein 6.3 L Albumin 3.4 Globulin 2.9 Albumin/Globulin Ratio 1.2 Triglycerides Cholesterol LDL Cholesterol HDL Cholesterol TSH Urine Color Urine Appearance Urine pH Ur Specific [place] Urine Protein Urine Ketones Urine Blood Urine Nitrate Urine Bilirubin Urine Urobilinogen Ur Leukocyte Esterase Urine Glucose 03/11/19 03/11/19 03/11/19 03:50 04:07 06:30 APTT 49.3 H Sodium 135 Potassium 3.8 Chloride 108 Carbon Dioxide 20 L Anion Gap 7 BUN 16 Creatinine 0.93 Est GFR ( Amer) 99.0 Est GFR (Non-Af Amer) 81.8 BUN/Creatinine Ratio 17.2 Glucose 269 H POC Glucose (mg/dL) 268 H Hemoglobin A1c Calcium 8.1 L Total Bilirubin AST ALT Alkaline Phosphatase Total Creatine Kinase 214 CK-MB (CK-2) 16.0 H Troponin I 3.52 H* Total Protein Albumin Globulin Albumin/Globulin Ratio Triglycerides Cholesterol LDL Cholesterol HDL Cholesterol TSH Urine Color Urine Appearance Urine pH Ur Specific [place] Urine Protein Urine Ketones Urine Blood Urine Nitrate Urine Bilirubin Urine Urobilinogen Ur Leukocyte Esterase Urine Glucose Diagnostic Imaging: echo 03/10/2019; LVEF 40-45%, + inferolateral, basal inferoseptal hypokinesis, mild MR, Mild TR, trace AI EKG Data: 03/11/2019 EKG; sINUS RHYTHM RATE 71, + ivcd. Telemetry; Sinus 80-90's with PACs Assessment/Plan #1 NSTEMI; No recurrent chest pain since presentation. He does state that leading up to hospitalization he noticed decrease exercise capacity. He adds that he was developing fatigue with activities that he would usually tolerate such as mowing the lawn. Troponin continues to increase. today it is 3.52. On IV heparin, ASA 81/day and Lopressor therapy. Will add high intensity statin therapy and convert Lopressor to Toprol. Echo reveals LVEF 40-45% with + focal wall motion abnormality, thus, will proceed with C. Procedure was reviewed with the patient including risk vs. benefit he is aware that there is a risk for CVA, MD, , bleeding, contrast induced nephropathy, possible requirement of DAPT, stent placement or referral for CABG. 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 #2 HFmrEF; LVEF 40-45% with + focal wall motion abnormalities and elevated troponin. To have LHC. Will transition Lopressor to Toprol starting 03/12/2019. Continue ARB, consider adding Aldactone in the future after optimizing Bblocker. If LHC reveals CAD goal HR is 50-60, he has been in 80-90's. He is compensated on exam. #3 DKA; Resolved. Endocrine following patient. If LHC reveals CAD. Consider adding SGLT2 inhibitor at a later date. On insulin at this time. #4 h/o HTN; SBP 140-160's; Will optimize Bblocker therapy. Consider adding Aldactone in the future. Continue ARB therapy. #5 Disposition pending course, will d/w Dr. Jefferson. Attending: Jaycob Jefferson <Jaycob Jefferson - Last Filed: 03/11/19 14:00> Medications Active Medications: Aspirin (Aspirin Ec Tab*) 81 mg PO DAILY [facility] Last Admin: 03/11/19 09:47 Dose: 81 mg Atorvastatin Calcium (Lipitor*) 40 mg PO BEDTIME [facility] Dextrose (D50w Syringe 50 Ml*) 12.5 gm IV PUSH .FOR FS < 60 - SS PRN PRN Reason: FS < 60 Doxazosin Mesylate (Cardura Tab*) 8 mg PO DAILY [facility] Last Admin: 03/11/19 09:48 Dose: 8 mg Heparin Sodium (Porcine) (Heparin Vial(*)) 0 units IV .PER PROTOCOL PRN PRN Reason: SEE PROTOCOL Last Admin: 03/10/19 18:25 Dose: 3,000 units Sodium Chloride (Ns 0.9% 1000 Ml) 1,000 mls @ 100 mls/hr IV PER RATE [facility] Stop: 03/11/19 16:00 Last Admin: 03/10/19 15:56 Dose: 100 mls/hr Insulin Glargine (Lantus(*)) 60 units SUBCUT Q24H [facility] Last Admin: 03/10/19 23:00 Dose: 60 units Insulin Human Lispro (Humalog*) 0 units SUBCUT FS Q4 ICU [facility]; Protocol Last Admin: 03/11/19 13:46 Dose: Not Given Levothyroxine Sodium (Synthroid Tab*) 150 mcg PO DAILY@0600 [facility] Last Admin: 03/11/19 04:20 Dose: 150 mcg Metoprolol Succinate (Toprol Xl Tab*) 50 mg PO DAILY [facility] Metoprolol Tartrate (Lopressor Tab*) 25 mg PO ONCE ONE Stop: 03/11/19 22:01 Valsartan (Diovan Tab*) 240 mg PO DAILY [facility] Last Admin: 03/11/19 09:49 Dose: 240 mg Objective Vital Signs: Temp Pulse Resp BP Pulse Ox 98.3 F 100 22 163/89 95 03/11/19 08:00 03/11/19 13:30 03/11/19 13:30 03/11/19 13:30 03/11/19 13:30 Laboratory Results: 03/11/19 10:45 03/11/19 03:50 INR (Anticoag Therapy) 1.15 (0.82-1.09) H 03/10/19 08:54 APTT 49.3 seconds (26.0-36.3) H 03/11/19 06:30 Total Bilirubin 0.50 mg/dL (0.2-1.0) 03/10/19 22:00 AST 31 U/L (13-39) 03/10/19 22:00 ALT 18 U/L (7-52) 03/10/19 22:00 Alkaline Phosphatase 66 U/L (34-104) 03/10/19 22:00 CK-MB (CK-2) 16.0 ng/mL (0.6-6.3) H 03/11/19 03:50 B-Natriuretic Peptide 22 pg/mL (<=100) 03/10/19 08:54 Total Protein 6.3 g/dL (6.4-8.9) L 03/10/19 22:00 Albumin 3.4 g/dL (3.2-5.2) 03/10/19 22:00 Globulin 2.9 g/dL (2-4) 03/10/19 22:00 Albumin/Globulin Ratio 1.2 (1-3) 03/10/19 22:00 Triglycerides 54 mg/dL 03/10/19 17:19 Cholesterol 117 mg/dL 03/10/19 17:19 LDL Cholesterol 63 mg/dL 03/10/19 17:19 HDL Cholesterol 43.0 mg/dL 03/10/19 17:19 TSH 0.25 mcIU/mL (0.34-5.60) L 03/10/19 08:54 03/10/19 03/10/19 03/10/19 08:54 11:31 13:45 Troponin I 0.60 H* 1.38 H* 1.85 H* 03/10/19 03/10/19 03/11/19 17:19 22:00 03:50 Troponin I 2.74 H* 3.40 H* 3.52 H* Assessment/Plan 03.11.2019. 2 pm. above discussed with DYLAN Thurman and Dr Go. Echo reviewed with multiple wall motion abnormality. Recommend to proceed with Cardiac cath. Cardiac cath as per Dr Go.
[2019-03-11] MEDS ORDERED: NS 0.9% 250 ML* 250 ML IV SCH (10:00)
--- NOTE | 2019-03-11 10:24 | PN ---
Subjective Date of Service: 03/11/19 Interval History: Patient has no new complaints. Denies chest pressure. He understand he is going to cath this morning. Prior to being made NPO, he was tolerating breakfast. He was seen by endocrinology earlier this morning. Cardiology follow-up appreciated, have increased metoprolol. Family History: Unchanged from Admission Social History: Unchanged from Admission Past Medical History: Unchanged from Admission Objective Active Medications: Current Medications: Aspirin (Aspirin Ec Tab*) 81 mg PO DAILY [facility] Last Admin: 03/11/19 09:47 Dose: 81 mg Atorvastatin Calcium (Lipitor*) 40 mg PO BEDTIME [facility] Dextrose (D50w Syringe 50 Ml*) 12.5 gm IV PUSH .FOR FS < 60 - SS PRN PRN Reason: FS < 60 Doxazosin Mesylate (Cardura Tab*) 8 mg PO DAILY [facility] Last Admin: 03/11/19 09:48 Dose: 8 mg Heparin Sodium/Dextrose (Heparin Drip 25,000 Units(*)) 25,000 units in 500 mls @ 0 mls/hr IV PER RATE [facility]; Protocol Last Admin: 03/11/19 01:17 Dose: 800 mls/hr Sodium Chloride (Ns 0.9% 1000 Ml) 1,000 mls @ 100 mls/hr IV PER RATE [facility] Last Admin: 03/10/19 15:56 Dose: 100 mls/hr Sodium Chloride (Ns 0.9% 250 Ml*) 250 mls @ 75 mls/hr IV PER RATE [facility] Insulin Glargine (Lantus(*)) 60 units SUBCUT Q24H [facility] Last Admin: 03/10/19 23:00 Dose: 60 units Insulin Human Lispro (Humalog*) 0 units SUBCUT FS Q4 ICU [facility]; Protocol Last Admin: 03/11/19 10:01 Dose: 2 units Levothyroxine Sodium (Synthroid Tab*) 150 mcg PO DAILY@0600 [facility] Last Admin: 03/11/19 04:20 Dose: 150 mcg Metoprolol Succinate (Toprol Xl Tab*) 50 mg PO DAILY [facility] Metoprolol Tartrate (Lopressor Tab*) 25 mg PO ONCE ONE Stop: 03/11/19 22:01 Valsartan (Diovan Tab*) 240 mg PO DAILY [facility] Last Admin: 03/11/19 09:49 Dose: 240 mg Vital Signs - 8 hr 03/11/19 03/11/19 03/11/19 03:00 03:39 04:00 Temperature 36.5 C Pulse Rate 81 81 Respiratory 10 19 Rate Blood Pressure 167/95 154/92 (mmHg) O2 Sat by Pulse 100 94 Oximetry 03/11/19 03/11/19 03/11/19 05:00 06:00 08:00 Temperature 36.8 C Pulse Rate 74 79 Respiratory 23 19 Rate Blood Pressure 163/98 146/88 (mmHg) O2 Sat by Pulse 98 96 Oximetry Oxygen Devices in Use Now: None Appearance: alert, no distress Eyes: No Scleral Icterus Ears/Nose/Mouth/Throat: NL Teeth, Lips, Gums Neck: NL Appearance and Movements; NL JVP Respiratory: Symmetrical Chest Expansion and Respiratory Effort, Clear to Auscultation Cardiovascular: NL Sounds; No Murmurs; No JVD, RRR Abdominal: NL Sounds; No Tenderness; No Distention Lymphatic: No Cervical Adenopathy Extremities: No Edema Neurological: Alert and Oriented x 3 Lines/Tubes/Other Access: Clean, Dry and Intact Peripheral IV - x2 Nutrition: Taking PO's Result Diagrams: 03/10/19 08:54 03/11/19 03:50 Additional Lab and Data: Laboratory Tests 03/10/19 03/10/19 03/10/19 12:55 13:45 17:16 APTT POC Glucose (mg/dL) 141 H 157 H CK-MB (CK-2) Troponin I 1.85 H* Cholesterol 03/10/19 03/10/19 03/10/19 17:19 17:19 20:01 APTT 39.1 H POC Glucose (mg/dL) 394 H CK-MB (CK-2) Troponin I 2.74 H* Cholesterol 117 03/10/19 03/11/19 03/11/19 22:00 00:16 00:20 APTT 79.5 H POC Glucose (mg/dL) 125 H CK-MB (CK-2) 18.2 H Troponin I 3.40 H* Cholesterol 03/11/19 03/11/19 03/11/19 03:50 04:07 06:30 APTT 49.3 H POC Glucose (mg/dL) 268 H CK-MB (CK-2) 16.0 H Troponin I 3.52 H* Cholesterol Microbiology and Other Data: Microbiology 03/10/19 12:35 Nasal Screen MRSA (PCR) - Final Nasal Mrsa Detected Diagnostic Imaging: Echo: EF 40-45%, wall motion abnormalities inferiorly, LVH EKG Data: Normal sinus rhythm, LBBB, T-wave inversions V5-V5 Assess/Plan/Problems-Billing Assessment: 64 year old man with DKA now resolved and non-STEMI. - Patient Problems (1) DKA (diabetic ketoacidoses) Current Visit: Yes Status: Acute Priority: High Code(s): E11.10 - TYPE 2 DIABETES MELLITUS WITH KETOACIDOSIS WITHOUT COMA SNOMED Code(s): 026648597 Comment: -DKA resolved. Endocrinology consult appreciated. -Will be started on SGLT as outpatient -Endocrinology has adjusted insulin doses. (2) Non-STEMI (non-ST elevated myocardial infarction) Current Visit: Yes Status: Acute Priority: High Code(s): I21.4 - NON-ST ELEVATION (NSTEMI) MYOCARDIAL INFARCTION SNOMED Code(s): 26688563 Comment: -Echo appreciated, likely has ischemic cardiomyopathy. -Will continue heparin drip, and aspirin for anti-thrombosis effect -metoprolol increased -cath imminently planned (3) Hypothyroidism Current Visit: Yes Status: Acute Priority: Medium Code(s): E03.9 - HYPOTHYROIDISM, UNSPECIFIED SNOMED Code(s): 77562504 Comment: -now on decreased L-thyroxine dose (4) DVT prophylaxis Current Visit: Yes Status: Acute Priority: Low Code(s): Z29.9 - ENCOUNTER FOR PROPHYLACTIC MEASURES, UNSPECIFIED SNOMED Code(s): 442017871 Comment: -on IV heparin -SCDs also Status and Disposition: inpatient, ICU monitoring
[2019-03-11] MEDS ORDERED: fentaNYL* 50 MCG/ML 2 ML VIAL (100 MCG VIAL) ONE (10:42)
[2019-03-11] MEDS ORDERED: Lidocaine 1% INJ* 10 MG/ML 30 ML SDV ONE (10:43)
[2019-03-11] MEDS ORDERED: nitroGLYCERIN DRIP* 25,000 MCG/250 ML BTL ONE (10:43)
[2019-03-11] MEDS ORDERED: Heparin(*) 1000 UNIT/ML 10 ML VIAL CATH LAB IV ONE (10:43)
[2019-03-11] MEDS ORDERED: Midazolam* 1 MG/ML 5 ML VIAL (5 MG) ONE (10:43)
[2019-03-11] MEDS ORDERED: Iohexol 350 (CONTRAST) 200 ML MDV IV ONE ×2 (10:43→11:45)
[2019-03-11] MEDS ORDERED: VERAPAMIL 2.5 MG/ML 2 ML VIAL ** 5 mg/2 ml ONE (10:43)
[2019-03-11 11:00] LABS: ABS Eosinophils 0.1 10^3/ul (0-0.6); ABS Lymphocytes 1.1 10^3/ul (1.0-4.8); ABS Monocytes 0.4 10^3/ul (0-0.8); ABS Neutrophils 5.1 10^3/ul (1.5-7.7); Eosinophil % 0.9 %; Hematocrit 39 % (42-52); Hemoglobin 13.7 g/dL (14.0-18.0); Lymphocyte % 16.4 %; Mean Corpuscular HGB Conc 35 g/dL (31-36); Mean Corpuscular Hemoglobin 30 pg (27-31); Mean Corpuscular Volume 86 fL (80-94); Mean Platelet Volume 8.5 fL (7.4-10.4); Platelet Count 142 10^3/uL (150-450); Red Blood Count 4.59 10^6 /uL (4.18-5.48); Red Cell Distribution Width 13 % (10.5-15); White Blood Count 6.6 10^3/uL (3.5-10.8)
[2019-03-11] MEDS ORDERED: Heparin 2 UNITS/ML IVPREMIX* 2,000 UNIT/1,000 ML BAG IV ONE (11:00)
--- NOTE | 2019-03-11 11:13 | CONSULT ---
Consult Consult: [facility] Inpatient Consult Note Date of Consult: 03/11/19 Reason for Consult: ketosis-prone diabetes Reason for Admission: NSTEMI, DKA ASSESSMENT: 64 yo M with insulin-deficient type 2 diabetes, now admitted for NSTEMI in setting of first-time DKA. The etiology of ketosis-prone diabetes is likely the combination of (1) insulin discontinuation, (2) Trulicity discontinuation and (3) ketogenic diet. To exclude possibility of T1DM (MILLY) in this patient, I recommend C-peptide and autoantibody testing this admission. His weight-based insulin requirement is approximately 100 units/day, which should be given as 50% basal and 50% bolus. In addition to anti-ketogenic and glucose-lower effects, Trulicity has cardiometabolic benefit and should be restarted at discharge. SGLT2i agents should be avoided in patients with a history of DKA. PLAN: - check C-peptide and GAD65 - reduce glargine to 50 units once daily - change to Toujeo at discharge - increase lispro to 10 units with meals - change to Novolog at discharge - continue lispro sliding scale 2 units per 50mg/dL >150 - discontinue sliding scale at discharge - restart Trulicity + metformin at discharge - follow-up with endocrine in 1-2 weeks SUBJECTIVE: History of Present Illness: 64 yo M with history of diabetes since 2011, now presenting with DKA. Per outpatient notes from Dr. Cruz, he has had difficulty with glycemic control recently. Escalating dose of Toujeo have caused frequent hypoglycemia, with FS often in 40s overnight, accompanied by irritability and confusion on multiple occasions in the last 2 months. He has used high-dose basal insulin (up to 1 unit/kg/day) and low-dose prandial insulin (sliding-scale only) for the past year, but notes worsening hypoglycemia in the months since his senior care, when his schedule became more erratic. Recently, metformin was reintroduced as a replacement for Trulicity, which has used successfully for several years. More recently, he abruptly stopped all insulin therapy and stopped eating carbohydrate-laden foods in an attempt to address both hypoglycemia and hyperglycemia. Unfortunately, he experienced acute hyperglycemia after stopping insulin, which he could reduce with diet alone. He noted BG>400 on the evening before admission, accompanied by nausea, vomiting, diaphoresis, dyspnea and pallor ("turning blue"). He denies chest pain or symptoms. He went to [facility] ER and was transferred to [facility] after discovery of DKA and elevated troponin. He was started on IV insulin and given appropriate ACS meds. AGA resolved within 12 hours and he was transitioned to Lantus 60 units, which is a significant reduction from his typical dose of 90-100 units/day. Past Medical History: 1. Hypothyroidism >20 years 2. Type 2 Diabetes with most recent A1c 8.4% 3. Hypertension Medications Prior to Admission: Doxazosin TAB* [Cardura TAB*] 8 mg PO DAILY 03/10/19 [History Confirmed 03/10/19 ] Insulin Glargine (Nf) [Toujeo Solostar Pen (NF)] 90 unit SC QAM 03/10/19 [ History Confirmed 03/10/19] Levothyroxine Sodium [Levoxyl] 175 mcg PO QAM 03/10/19 [History Confirmed ] Valsartan [Valsartan 320 MG] 320 mg PO DAILY 03/10/19 [History Confirmed ] metFORMIN* [Glucophage 500 MG TAB *] 500 mg PO BID 03/10/19 [History Confirmed 03/10/19] Inpatient Medications: Aspirin (Aspirin Ec Tab*) 81 mg PO DAILY [facility] Last Admin: 03/11/19 09:47 Dose: 81 mg Atorvastatin Calcium (Lipitor*) 40 mg PO BEDTIME [facility] Dextrose (D50w Syringe 50 Ml*) 12.5 gm IV PUSH .FOR FS < 60 - SS PRN PRN Reason: FS < 60 Doxazosin Mesylate (Cardura Tab*) 8 mg PO DAILY [facility] Last Admin: 03/11/19 09:48 Dose: 8 mg Heparin Sodium (Porcine) (Heparin Vial(*)) 0 units IV .PER PROTOCOL PRN PRN Reason: SEE PROTOCOL Last Admin: 03/10/19 18:25 Dose: 3,000 units Heparin Sodium/Dextrose (Heparin Drip 25,000 Units(*)) 25,000 units in 500 mls @ 0 mls/hr IV PER RATE [facility]; Protocol Last Admin: 03/11/19 01:17 Dose: 800 mls/hr Sodium Chloride (Ns 0.9% 1000 Ml) 1,000 mls @ 100 mls/hr IV PER RATE [facility] Last Admin: 03/10/19 15:56 Dose: 100 mls/hr Sodium Chloride (Ns 0.9% 250 Ml*) 250 mls @ 75 mls/hr IV PER RATE [facility] Insulin Glargine (Lantus(*)) 60 units SUBCUT Q24H [facility] Last Admin: 03/10/19 23:00 Dose: 60 units Insulin Human Lispro (Humalog*) 0 units SUBCUT FS Q4 ICU [facility]; Protocol Last Admin: 03/11/19 10:01 Dose: 2 units Levothyroxine Sodium (Synthroid Tab*) 150 mcg PO DAILY@0600 [facility] Last Admin: 03/11/19 04:20 Dose: 150 mcg Metoprolol Succinate (Toprol Xl Tab*) 50 mg PO DAILY [facility] Metoprolol Tartrate (Lopressor Tab*) 25 mg PO ONCE ONE Stop: 03/11/19 22:01 Valsartan (Diovan Tab*) 240 mg PO DAILY [facility] Last Admin: 03/11/19 09:49 Dose: 240 mg Allergies/Intolerances: NKDA Social History: Retired June 2018 from [employer]. Lives with . Denies alcohol or tobacco. Family History: Father with early/severe diabetes. Review of Systems: 10 systems negative, except as noted above. OBJECTIVE: Temp Pulse Resp BP Pulse Ox 98.3 F 90 15 154/96 99 03/11/19 08:00 03/11/19 10:00 03/11/19 10:00 03/11/19 10:00 03/11/19 10:00 General: alert, pleasant, oriented, no distress ENT: neck supple, no thyromegaly, no bruit is heard Chest: CTAB, no wheezing or crackles CV: RRR, no murmur Abdomen: soft, non-tender Extremities: no edema, distal pulses intact Skin: warm, dry, no rash Neuro: grossly intact motor/sensory in extremities Psych: restricted affect, pleasant Labs: WBC 13.8 10^3/uL (3.5-10.8) H 03/10/19 08:54 RBC 4.77 10^6 /uL (4.18-5.48) 03/10/19 08:54 Hgb 14.2 g/dL (14.0-18.0) 03/10/19 08:54 Hct 42 % (42-52) 03/10/19 08:54 MCV 88 fL (80-94) 03/10/19 08:54 MCH 30 pg (27-31) 03/10/19 08:54 MCHC 34 g/dL (31-36) 03/10/19 08:54 RDW 13 % (10.5-15) 03/10/19 08:54 Plt Count 209 10^3/uL (150-450) 03/10/19 08:54 MPV 8.8 fL (7.4-10.4) 03/10/19 08:54 Neut % (Auto) 86.1 % 03/10/19 08:54 Lymph % (Auto) 8.7 % 03/10/19 08:54 [place] % (Auto) 4.8 % 03/10/19 08:54 Eos % (Auto) 0.1 % 03/10/19 08:54 Baso % (Auto) 0.3 % 03/10/19 08:54 Absolute Neuts (auto) 11.9 10^3/ul (1.5-7.7) H 03/10/19 08:54 Absolute Lymphs (auto) 1.2 10^3/ul (1.0-4.8) 03/10/19 08:54 Absolute Monos (auto) 0.7 10^3/ul (0-0.8) 03/10/19 08:54 Absolute Eos (auto) 0.0 10^3/ul (0-0.6) 03/10/19 08:54 Absolute Basos (auto) 0.0 10^3/ul (0-0.2) 03/10/19 08:54 Absolute Nucleated RBC 0.0 10^3/ul 03/10/19 08:54 Nucleated RBC % 0.0 03/10/19 08:54 INR (Anticoag Therapy) 1.15 (0.82-1.09) H 03/10/19 08:54 APTT 49.3 seconds (26.0-36.3) H 03/11/19 06:30 Patient Temperature Not Reportable 03/10/19 09:08 ABG pH 7.25 (7.35-7.45) L 03/10/19 09:08 ABG pH (Temp Correct) Not Reportable 03/10/19 09:08 ABG pCO2 21 mmHg (35-45) L 03/10/19 09:08 ABG pCO2 (Temp Corrct Not Reportable 03/10/19 09:08 ABG pO2 134 mmHg (80-100) H 03/10/19 09:08 ABG pO2 (Temp Correct Not Reportable 03/10/19 09:08 ABG HCO3 12.5 mmol/L (19-31) L 03/10/19 09:08 ABG O2 Saturation 98.7 % (94.0-98.0) H 03/10/19 09:08 ABG Base Excess -15.9 mmol/L (-2.0-2.0) L 03/10/19 09:08 Respiration Rate Not Reportable 03/10/19 09:08 Ventilator Type Not Reportable 03/10/19 09:08 Vent Mode Not Reportable 03/10/19 09:08 FiO2 1 03/10/19 09:08 Inspiratory Time Not Reportable 03/10/19 09:08 PEEP Not Reportable 03/10/19 09:08 Pressure Support Not Reportable 03/10/19 09:08 Pressure Control Not Reportable 03/10/19 09:08 EPAP Not Reportable 03/10/19 09:08 IPAP Not Reportable 03/10/19 09:08 BiPAP Not Reportable 03/10/19 09:08 Sodium 135 mmol/L (135-145) 03/11/19 03:50 Potassium 3.8 mmol/L (3.5-5.0) 03/11/19 03:50 Chloride 108 mmol/L (101-111) 03/11/19 03:50 Carbon Dioxide 20 mmol/L (22-32) L 03/11/19 03:50 Anion Gap 7 mmol/L (2-11) 03/11/19 03:50 BUN 16 mg/dL (6-24) 03/11/19 03:50 Creatinine 0.93 mg/dL (0.67-1.17) 03/11/19 03:50 Est GFR ( Amer) 99.0 (>60) 03/11/19 03:50 Est GFR (Non-Af Amer) 81.8 (>60) 03/11/19 03:50 BUN/Creatinine Ratio 17.2 (8-20) 03/11/19 03:50 Glucose 269 mg/dL (70-100) H 03/11/19 03:50 POC Glucose (mg/dL) 268 mg/dL (70-100) H 03/11/19 04:07 Hemoglobin A1c 8.7 % (4.0-5.6) H 03/10/19 08:54 Lactic Acid 1.1 mmol/L (0.5-2.0) 03/10/19 08:56 Calcium 8.1 mg/dL (8.6-10.3) L 03/11/19 03:50 Magnesium 2.3 mg/dL (1.9-2.7) 03/10/19 08:54 Total Bilirubin 0.50 mg/dL (0.2-1.0) 03/10/19 22:00 AST 31 U/L (13-39) 03/10/19 22:00 ALT 18 U/L (7-52) 03/10/19 22:00 Alkaline Phosphatase 66 U/L (34-104) 03/10/19 22:00 Total Creatine Kinase 214 U/L (10-223) 03/11/19 03:50 CK-MB (CK-2) 16.0 ng/mL (0.6-6.3) H 03/11/19 03:50 Troponin I 3.52 ng/mL (<0.04) H* 03/11/19 03:50 B-Natriuretic Peptide 22 pg/mL (<=100) 03/10/19 08:54 Total Protein 6.3 g/dL (6.4-8.9) L 03/10/19 22:00 Albumin 3.4 g/dL (3.2-5.2) 03/10/19 22:00 Globulin 2.9 g/dL (2-4) 03/10/19 22:00 Albumin/Globulin Ratio 1.2 (1-3) 03/10/19 22:00 Triglycerides 54 mg/dL 03/10/19 17:19 Cholesterol 117 mg/dL 03/10/19 17:19 LDL Cholesterol 63 mg/dL 03/10/19 17:19 HDL Cholesterol 43.0 mg/dL 03/10/19 17:19 TSH 0.25 mcIU/mL (0.34-5.60) L 03/10/19 08:54 Urine Color Yellow 03/10/19 11:46 Urine Appearance Cloudy 03/10/19 11:46 Urine pH 5.0 (5-9) 03/10/19 11:46 Ur Specific [place] 1.022 (1.010-1.030) 03/10/19 11:46 Urine Protein Negative (Negative) 03/10/19 11:46 Urine Ketones 2+ (Negative) A 03/10/19 11:46 Urine Blood Negative (Negative) 03/10/19 11:46 Urine Nitrate Negative (Negative) 03/10/19 11:46 Urine Bilirubin Negative (Negative) 03/10/19 11:46 Urine Urobilinogen Negative (Negative) 03/10/19 11:46 Ur Leukocyte Esterase Negative (Negative) 03/10/19 11:46 Urine Glucose 3+(>=500 mg/dl) (Negative) A 03/10/19 11:46
[2019-03-11] MEDS ORDERED: Nitroglycerin TAB 0.4 MG* 0.4 MG TAB SL PRN (20:23)
[2019-03-11] MEDS ORDERED: Atorvastatin* 80 MG TAB PO ONE ×2 (21:00)
[2019-03-11] MEDS ORDERED: Metoprolol Tartrate TAB* 25 MG PO ONE (22:00)
--- NOTE | 2019-03-11 23:45 | TRS ---
CC: Dr. Cruz in [place]; Dr. Almanza, [facility]; Dr. Cindi Go* TRANSFER SUMMARY: DATE OF ADMISSION: 03/10/19 DATE OF TRANSFER: 03/12/19 PRIMARY DIAGNOSIS: Multivessel coronary artery disease with acute non-ST elevation myocardial infarction. SECONDARY DIAGNOSES: 1. Diabetic ketoacidosis. 2. Type 2 diabetes. 3. Hypertension. 4. Hypothyroidism. MEDICATIONS ON TRANSFER: 1. Aspirin 81 mg p.o. q. day. 2. Atorvastatin 40 mg p.o. q.h.s. 3. D50 0.25 amp IV push for fingerstick less than 60. 4. Doxazosin 8 mg p.o. q. day. 5. Insulin glargine 60 units subcutaneous q.p.m. 6. Insulin lispro sliding scale. 7. Levothyroxine 150 mcg p.o. q.a.m. 8. Toprol-XL 75 mg p.o. q.a.m. 9. Nitroglycerin 0.4 mg sublingual q.5 minutes p.r.n. angina. 10. Valsartan 240 mg p.o. q. day. HOSPITAL COURSE: The patient was admitted with episode of chest tightness as well as dyspnea and pallor. He also had vomiting and he had recently stopped his insulin, tried to go on a ketogenic diet to control his diabetes. The patient was assessed to have diabetic ketoacidosis with his presenting blood sugar 297, carbon dioxide 10, anion gap of 18. His hemoglobin A1c was 8.7. He was admitted to intensive care unit and treated with insulin drip and copious intravenous fluids. His glucose corrected rapidly and his anion gap closed such that on 03/10/19 at 2 p.m. his anion gap was 7. He was seen in consultation by Dr. Pizano of Endocrinology and started back on basal bolus insulin and diabetic diet. He is to see Dr. Pizano as an outpatient for followup. He is recommending restarting Trulicity as an outpatient due to cardio protective effects and to continue basal/bolus insulin and avoid SGLT2 inhibitors. The patient also presented on admission with chest pain; had initial troponin testing at 0.6. This climbed to 1.8 and up to a peak of 3.5. He was seen in consultation by Dr. Silva of Cardiology, who involved Dr. Go from Interventional Cardiology. The patient was taken to the cardiac labor expediter on and cardiac catheterization demonstrated right RCA dominant triple-vessel coronary artery disease. No stents were placed. The patient initially had been on heparin through hospital stay. This was stopped after the cardiac catheterization. Dr. Go spoke with Dr. Almanza and arranged for transfer to [facility] for triple-vessel coronary artery bypass grafting. The patient has remained without chest pain, has been hemodynamically stable during his ICU stay. The other notable laboratory findings during the hospital stay include a white count of 13.8 on admission that resolved the next day. His initial pH was 7.25, PCO2 21, PO2 34. Initial lactic acid 1.1. CK-MBs were 14, 18, and 16 consecutively. Cholesterol was 117 with an LDL of 63. Chest x-ray showed no acute disease. DISPOSITION: [facility] for triple-vessel coronary artery bypass grafting with Dr. Almanza. CONDITION: Stable. He will be transferred by ALS ambulance for availability of medications,oxygen, and cardiac monitoring. DIET: Diabetic diet. ACTIVITY: Bed rest until after surgery. STATUS: His status while in the hospital was inpatient. TIME SPENT: I spent more than an hour today arranging for transport, filling out cover paperwork, and completing necessary discharge paperwork. [id number]/[facility] #: [id number] ERIKA
[2019-03-11] MEDS: Insulin GLARGINE(*) 1 UNITS UNIT SUBCUT SCH (23:50)
[2019-03-12] MEDS: Insulin LISPRO* 1 UNITS UNIT SUBCUT SCH (04:07)
[2019-03-12] MEDS: Levothyroxine TAB* 150 MCG TAB PO SCH (04:07)
[2019-03-12 05:12] VITALS: BP 153/95
[2019-03-12] MEDS ORDERED: Metoprolol Succinate XL TAB* 50 MG PO SCH (09:00)
[2019-03-12] MEDS ORDERED: Metoprolol Succinate XL TAB* 25 MG PO SCH (09:00)
--- NOTE | 2019-03-12 11:38 | CATH ---
CC: Dr. Cruz; Dr. Jefferson; Dr. Almanza at [facility] CATH REPORT: DATE OF PROCEDURE: 03/11/19 PRIMARY CREATIVE WRITING ENGLISH PROFESSOR: Dr. Cruz in [place]. CREATIVE WRITING ENGLISH PROFESSOR: Dr. Jefferson. PROCEDURES: Right radial artery access, bilateral selective coronary cineangiography, left heart catheterization, left ventriculography. HISTORY: A 64-year-old diabetic presenting with DKA, now stabilized, with associated non-ST elevation infarct. PROCEDURE ACCESS: Right radial artery sheath 6F Slim. MEDICATIONS: 1. Subcu lidocaine. 2. IV Versed. 3. IV fentanyl. 4. Heparin 3000 units. 5. Verapamil 3 mg. 6. Nitroglycerin 300 mcg IA. DIAGNOSTIC CATHETERS: 5F TIG4, 5F L4, 5F pigtail. HEMODYNAMICS: AL 125/76, post coronary angiography LV approximately 135/4 with catheter fling exaggerating systolic pressure trace. No significant gradient on pullback with aortic systolic pressure of 140. ANGIOGRAPHY: RCA: The RCA is large, dominant, with proximal tortuosity and moderate tubular stenosis. Mid RCA is occluded to the acute margin where the RCA reconstitutes by bridging collaterals as well as left right collaterals. The acute marginal branch supplies a portion of the inferior septum. Distal RCA is under filled. Left Main: The left main is large, has no stenosis. LAD: The LAD has proximal calcification, has a 75% proximal stenosis, distally extends past the apex, the LAD supplies small diagonals, there are transseptal collaterals to the distal PDA, which likely arises as the acute marginal branch. The more distal RCA fills by transatrial and collaterals on the circumflex with filling of a very large posterolateral, and a proximal smaller posterolateral. I cannot rule out occlusion between the PDA and posterolateral circulation as it does not fill well. Circumflex: The circumflex is moderate, not dominant, with a moderate ramus, the mid circumflex has 40% to 50% stenosis followed by a small marginal, followed by a large marginal, which has proximal 50% to 60% stenosis, and shortly thereafter an additional marginal, which has proximal 50% to 60% stenosis. The AV groove circumflex continuation ends with a small posterolateral, and an atrial collateral to the distal RCA. LV gram: There is inferobasilar hypokinesis and mild distal inferior hypokinesis, there is also mild localized anterolateral hypokinesis, estimated LVEF of 45%. CONCLUSION: 1. Three vessel disease with LV systolic dysfunction in a diabetic with non-ST elevation infarct presentation. He will be referred for bypass grafting. 2. Normal left-sided hemodynamics. 3. Successful right radial artery access. [id number]/[facility] #: [id number] MTDD
[2019-03-12] MEDS ORDERED: Atorvastatin* 80 MG TAB PO SCH (21:00)
[2019-03-12] MEDS ORDERED: Atorvastatin* 40 MG TAB PO SCH (21:00)
== END 2019-03-12 04:00 | disposition short-term general hospital (02) | DRG 190 ==
LOC: ED 08:19 → ICU 11:11
PROVIDERS: ADMIT Internal Medicine; ATTEND Internal Medicine
PROC: 4A023N7 Measurement of Cardiac Sampling and Pressure, Left Heart, Percutaneous Approach (ICD-10-PCS; principal; 2019-03-10)
PROC: B2111ZZ Fluoroscopy of Multiple Coronary Arteries using Low Osmolar Contrast (ICD-10-PCS; 2019-03-10)
PROC: B2151ZZ Fluoroscopy of Left Heart using Low Osmolar Contrast (ICD-10-PCS; 2019-03-10)
DX: I21.4 Non-ST elevation (NSTEMI) myocardial infarction (principal); E11.10 Type 2 diabetes mellitus with ketoacidosis without coma; I50.20 Unspecified systolic (congestive) heart failure; I25.10 Atherosclerotic heart disease of native coronary artery without angina pectoris; E03.9 Hypothyroidism, unspecified; I11.0 Hypertensive heart disease with heart failure; R00.0 Tachycardia, unspecified; Z79.82 Long term (current) use of aspirin; Z79.4 Long term (current) use of insulin; Z83.3 Family history of diabetes mellitus; Z87.891 Personal history of nicotine dependence; Z72.89 Other problems related to lifestyle; Z82.49 Family history of ischemic heart disease and other diseases of the circulatory system
CPT/HCPCS: 36415; 71045; 80048; 80053; 80061; 81003; 82550; 82553; 82803; 83036; 83605; 83735; 83880; 84443; 84484; 85025; 85610; 85730; 87641; 93005; 93306; 93459; 99285; A9270-GY; C1769; J1644; J1815; J2250; J3010

== ENCOUNTER 2019-06-25 14:02 | Inpatient (IN) | payer BC ==
--- OUTSIDE RECORDS SUMMARY | 2019-06-25 18:12 | XMS REPORT | Continuity of Care Document ---
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 Onset: 05/26 artery bypass graft(s) with unspecified angina pectoris Chronic ischemic heart disease Franny Silva M.D. Onset: 05/26/2019 Old myocardial infarction Franny Silva M.D. Onset: 05/26/2019 Social History Type Date Description Comments Sex Unknown ETOH Use Occasionally consumes alcohol Tobacco Use Start: Unknown End: Patient is a former quit 30 years ago Unknown smoker Recreational Drug Use Denies Drug Use Smoking Status Reviewed: 05/26/19 Patient is a former quit 30 years ago smoker Exercise Type/Frequency Exercises regularly Allergies, Adverse Reactions, Alerts Description No Known Drug Allergies Medications Active Medications SIG Qnty Indications Ordering Date Provider Cartia XT 1 tablet PO q day 30caps Franny Silva, 05/26/2019 180mg Caps M.D. ER 24HR Jardiance 10mg by mouth daily 30tabs E11.10 Frantz Pizano, 05/06/2019 10mg MD Tablets Eliquis take 1 tablet by 180tabs Shelley Nichols 04/09/2019 5mg Tablets mouth twice a day Bear, N.P. Metoprolol Tartrate 1 tab by mouth twice 120tabs Shelley S. 03/28/2019 daily Foster, N.P. 100mg Tablets Irbesartan 1 by mouth every day 30tabs I25.10 Shelley S. 03/28/2019 75mg Foster, N.P. Tablets Freestyle Salo 14 use at least 4 times 1units E11.10 [facility], 2018 Day/[facility]/Flash daily with sensor Monitoring System Device Freestyle Salo [address] place one sensor 2units E11.10 [facility], 03/26/2019 Day/Sensor/Flash every 14 days MD Monitoring System [facility] Levothyroxine Sodium 1 by mouth every day 30tabs E03.9 [facility], 2018 on an empty stomach 150mcg Tablets Trulicity inject 1 dose 2ml E11.10 [facility], 03/26/2019 1.5mg/0.5ML subcutaneously once MD Solution Pen-Inject weekly Vitamin Deficiency once monthly at 3units Igor 07/02/2018 Injectable doctor's Nancy System-B12 1000mcg/ML Kit Doxazosin Mesylate 1 by mouth every day 30tabs I10 Igor 04/23/2018 Nancy 8mg Tablets MD King 1 as needed 6tabs N52.9 Igor 05/29/2017 20mg Tablets MD Jonathan Cruz 35 units once daily 4.500ml E11.40 [facility], 09/22/2015 at bedtime, dx 300Unit/ML Solution e11.40, MDD 50 units Pen-Inject Onetodeo Ultrasoft use to test blood 300units Igor 04/07/2015 Lancets glucose three times Alberto Cruz a day and as needed MD Small Ultra Blue test twice a day and 300units Igor 04/07/2015 as needed Nancy Strips Atorvastatin Calcium take 1 tablet by 30tabs Shelley S. mouth once daily Bear, N.P. 40mg Tablets Aspirin 81 Low Dose 1 by mouth every day Unknown 81mg Chewtabs History Medications Metformin HCL 1 by mouth 60tabs E11.9 Igor Cruz, 03/04/2019 - twice a day 02/21/2019 500mg Tablets Medications Administered in Office Medication SIG Qnty Indications Ordering Provider Date B-12 Injection Igor Cruz MD 05/29/2019 Injection B-12 Injection Nurse Schedule Loc 73 01/24/2019 Injection B12 Provided By Patient Igor Cruz MD 12/03/2018 Injection Immunizations CPT Code Status Date Vaccine Lot # [id number] Given 05/30/2018 Tdap - Tetanus/Diptheria/Acellular Pertussis [id number] Given 02/17/2013 Pneumonia Vaccine [id number] Given 10/29/2006 Tdap - Tetanus/Diptheria/Acellular Pertussis Vital Signs Date Vital Result Comment 05/29/2019 11:41am Weight 187.00 lb Heart Rate 68 /min BP Systolic 124 mmHg BP Diastolic 78 mmHg O2 % BldC Oximetry 97 % room air 05/26/2019 3:01pm Height 73 inches 6'1" Weight 184.00 lb with shoes Heart Rate 66 /min BP Systolic Sitting 130 mmHg Lue BP Diastolic Sitting 70 mmHg Lue BP Systolic Standing 129 mmHg Lue BP Diastolic Standing 69 mmHg Lue BMI (Body Mass Index) 24.3 kg/m2 Ejection Fraction 40-45% Echo 04/30/19 Results Test Date Facility Test Result H/L Range Note Comp Metabolic 05/26/2019 [facility] Sodium 138 mmol/L Normal 135-145 Panel [address] [place] [address] [phone] Potassium 4.1 mmol/L Normal 3.5-5.0 Chloride 100 mmol/L Low 101-111 Co2 Carbon Dioxide 27 mmol/L Normal 22-32 Anion Gap 11 mmol/L Normal 2-11 Glucose 181 mg/dL High 70-100 Blood Urea Nitrogen 16 mg/dL Normal 6-24 Creatinine 0.94 mg/dL Normal 0.67-1.17 BUN/Creatinine Ratio 17.0 Normal 8-20 Calcium 9.4 mg/dL Normal 8.6-10.3 Total Protein 7.1 g/dL Normal 6.4-8.9 Albumin 4.2 g/dL Normal 3.2-5.2 Globulin 2.9 g/dL Normal 2-4 Albumin/Globulin Ratio 1.4 Normal 1-3 Total Bilirubin 0.70 mg/dL Normal 0.2-1.0 Alkaline Phosphatase 107 U/L High 34-104 Alt 31 U/L Normal 7-52 Ast 30 U/L Normal 13-39 Egfr Non- 80.8 >60 Egfr 97.8 >60 1 Lipid Panel - 04/15/2019 [facility] Creatine 37 U/L Normal 10- [address] Kinase(CK) [place] [address] [phone] Comp Metabolic 04/15/2019 [facility] Sodium 139 Normal 135- [address] mmol/[place] [address] [phone] Potassium 4.0 mmol/L Normal 3.5-5.0 Chloride 104 mmol/L Normal 101-111 Co2 Carbon Dioxide 29 mmol/L Normal 22-32 Anion Gap 6 mmol/L Normal 2-11 Glucose 99 mg/dL Normal 70-100 Blood Urea Nitrogen 12 mg/dL Normal 6-24 Creatinine 0.83 mg/dL Normal 0.67-1.17 BUN/Creatinine Ratio 14.5 Normal 8-20 Calcium 8.9 mg/dL Normal 8.6-10.3 Total Protein 6.5 g/dL Normal 6.4-8.9 Albumin 3.6 g/dL Normal 3.2-5.2 Globulin 2.9 g/dL Normal 2-4 Albumin/Globulin Ratio 1.2 Normal 1-3 Total Bilirubin 0.60 mg/dL Normal 0.2-1.0 Alkaline Phosphatase 110 U/L High 34-104 Alt 15 U/L Normal 7-52 Ast 12 U/L Low 13-39 Egfr Non- 93.3 >60 Egfr 112.9 >60 2 Lipid Profile 04/15/2019 [facility] Triglycerides 47 mg/dL 3 (Trig/Chol/HDL) [address] [place] [address] [phone] Cholesterol 90 mg/dL 4 HDL Cholesterol 41.9 mg/dL 5 LDL Cholesterol 39 mg/dL 6 CBC Auto 04/15/2019 [facility] White Blood 5.4 10^3/uL Normal 3.5-10.[address] [place] [address] [phone] Red Blood Count 4.33 10^6/uL Normal 4.18-5.48 Hemoglobin 13.0 g/dL Low 14.0-18.0 Hematocrit 37 % Low 42-52 Mean Corpuscular Volume 86 fL Normal 80-94 Mean Corpuscular Hemoglobin 30 pg Normal 27-31 Mean Corpuscular HGB Conc 35 g/dL Normal 31-36 Red Cell Distribution Width 15 % Normal 10-15 Platelet Count 121 10^3/uL Low 150-450 Mean Platelet Volume 9.2 fL Normal 7.4-10.4 Abs Neutrophils 3.5 10^3/uL Normal 1.5-7.7 Abs Lymphocytes 1.1 10^3/uL Normal 1.0-4.8 Abs Monocytes 0.4 10^3/uL Normal 0-0.8 Abs Eosinophils 0.3 10^3/uL Normal 0-0.6 Abs Basophils 0.0 10^3/uL Normal 0-0.2 Abs Nucleated RBC 0.0 10^3/uL Granulocyte % 65.4 % Lymphocyte % 21.1 % Monocyte % 7.1 % Eosinophil % 5.8 % Basophil % 0.6 % Nucleated Red Blood Cells % 0.1 Inr/Protime 04/14/2019 [facility] Inr 1.67 High 0.82-1.09 7 [place] [address] [phone] Inr/Protime 04/07/2019 [facility] Inr 2.00 High 0.82-1.09 8 [place] [address] [phone] Inr/Protime 04/03/2019 [facility] Inr 1.51 High 0.82-1.09 9 [place] [address] [phone] Inr/Protime 03/28/2019 [facility] Inr 1.95 High 0.82-1.09 10 [place] [address] [phone] Lipid Panel - 03/28/2019 [facility] Creatine <pending [address] Kinase(CK) > [place] [address] [phone] Laboratory test 03/10/2019 [facility] Point of Care 221 High 70-100 11 finding 101 [facility] Glucose mg/[place] [address] [phone] Arterial Blood 03/10/2019 [facility] Fio2 1 Gas [address] [place] [address] [phone] PH Arterial 7.25 Low 7.35-7.45 Pco2 Arterial 21 mmHg Low 35-45 Po2 Arterial 134 mmHg High 80-100 O2 Saturation Arterial 98.7 % High 94.0-98.0 Base Excess Arterial -15.9 mmol/L Low -2.0-2.0 12 Hco3 Arterial 12.5 mmol/L Low 19-31 Laboratory test 03/10/2019 [facility] Point of Care 297 mg/dL High 70-100 [address] Glucose [place] [id number] [phone] 1 Because ethnic data is not always readily available, this report includes an eGFR for both -Americans and non- Americans. The National Kidney Disease Education Program (NKDEP) does not endorse the use of the MDRD equation for patients that are not between the ages of 18 and 70, are , have extremes of body size, muscle mass, or nutritional status, or are non- or non-. According to the National Kidney Foundation, irrespective of diagnosis, the stage of the disease is based on the level of kidney function: Stage Description GFR(mL/min/1.73 m(2)) 1 Kidney damage with normal or decreased GFR 90 2 Kidney damage with mild decrease in GFR 60-89 3 Moderate decrease in GFR 30-59 4 Severe decrease in GFR 15-29 5 Kidney failure <15 (or dialysis) 2 Because ethnic data is not always readily available, this report includes an eGFR for both -Americans and non- Americans. The National Kidney Disease Education Program (NKDEP) does not endorse the use of the MDRD equation for patients that are not between the ages of 18 and 70, are , have extremes of body size, muscle mass, or nutritional status, or are non- or non-. According to the National Kidney Foundation, irrespective of diagnosis, the stage of the disease is based on the level of kidney function: Stage Description GFR(mL/min/1.73 m(2)) 1 Kidney damage with normal or decreased GFR 90 2 Kidney damage with mild decrease in GFR 60-89 3 Moderate decrease in GFR 30-59 4 Severe decrease in GFR 15-29 5 Kidney failure <15 (or dialysis) 3 Desirable: <150 Borderline High: 150-199 High: 200-499 Very High: >500 4 Desirable: <200 Borderline High: 200-239 High: >239 5 Low: <40 Desirable: 40-60 High: >60 6 Desirable: <100 Near Optimal: 100-129 Borderline High: 130-159 High: 160-189 Very High: >189 7 Standard intensity warfarin therapeutic range: 2.0-3.0 High intensity warfarin therapeutic range: 2.5-3.5 8 Standard intensity warfarin therapeutic range: 2.0-3.0 High intensity warfarin therapeutic range: 2.5-3.5 9 Standard intensity warfarin therapeutic range: 2.0-3.0 High intensity warfarin therapeutic range: 2.5-3.5 10 Standard intensity warfarin therapeutic range: 2.0-3.0 High intensity warfarin therapeutic range: 2.5-3.5 11 Fractionation Plant Supervisor: [id number] Reference ranges based on room air. 13 Fractionation Plant Supervisor: [id number] Procedures Date Code Description Status 05/26/2019 42444 EKG Tracing & Interpretation Completed 04/30/2019 61524 ECHO Transthoracic, Real-Time 2D With Doppler And Color Completed Flow 04/30/2019 19012 ECHO Transthoracic, Real-Time 2D With Doppler And Color Completed Flow 03/28/2019 62295 EKG Tracing & Interpretation Completed 03/11/2019 18309 Left Heart Cath. Incl S/I Coronaries, Angio S/I V Gram Completed If Done 03/11/2019 77356 ECHO Transthorasic Realtime 2D W Doppler & Color Flow Completed Hosp 03/11/2019 93601 EKG, Interpretation Only Completed 03/10/2019 09609 EKG, Interpretation Only Completed 01/24/2019 14442 Admin Of Inj Completed 12/03/2018 82576 Admin Of Inj Completed 07/09/2018 [id number] Colonoscopy Completed Medical Devices Description No Information Available Encounters Type Date Location Provider Dx Diagnosis Office Visit 05/06/2019 [facility] Frantz Pizano MD E11.10 Type 2 diabetes 10:40a Endocrinology of [employer] Specialist mellitus with ketoacidosis without coma 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 I21.4 Non-St elevation Of Community Development Specialist Bear, N.P. (Nstemi) myocardial infarction Z95.1 Presence of aortocoronary bypass graft I25.10 Athscl heart disease of curyung coronary artery w/o ang pctrs I10 Essential (primary) hypertension I50.9 Heart failure, unspecified I48.0 Paroxysmal atrial fibrillation Office Visit 03/28/2019 11:00a [facility] Shelley Nichols E11.10 Type 2 diabetes Of [facility] Bear, N.P. mellitus with ketoacidosis without coma I21.4 Non-St elevation (Nstemi) myocardial infarction E03.9 Hypothyroidism, unspecified I25.10 Athscl heart disease of curyung coronary artery w/o ang pctrs I50.9 Heart failure, unspecified I48.0 Paroxysmal atrial fibrillation Z95.1 Presence of aortocoronary bypass graft Office Visit 03/27/2019 [facility] Primary Igor E11.10 Type 2 diabetes 3:45p Anya Cruz MD mellitus with ketoacidosis without coma E03.9 Hypothyroidism, unspecified Office Visit 03/26/2019 [facility] Frantz Pizano, E11.10 Type 2 diabetes 1:40p Endocrinology of mellitus with [facility] ketoacidosis without coma I21.4 Non-St elevation (Nstemi) myocardial infarction E03.9 Hypothyroidism, unspecified Office Visit 03/12/2019 [facility] Isreal D. E11.10 Type 2 diabetes 9:07a roderick Castro M.D.,FACP mellitus with Hospitalists ketoacidosis without coma I21.4 Non-St elevation (Nstemi) myocardial infarction E03.9 Hypothyroidism, unspecified Office Visit 03/11/2019 [facility] Isreal D. 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 Isreal D. E11.10 Type 2 diabetes 9:06a Assoc,roderick Melchor M.D.,FACP mellitus with Hospitalists ketoacidosis without coma I21.4 Non-St elevation (Nstemi) myocardial infarction E03.9 Hypothyroidism, unspecified Office Visit 03/10/2019 11:32a [facility] Franny Silva, R07.89 Other chest Of [facility] M.D. pain R79.89 Other specified abnormal findings of blood chemistry E11.10 Type 2 diabetes mellitus with ketoacidosis without coma R94.31 Abnormal electrocardiogram [ECG] [EKG] Office Visit 03/04/2019 [facility] Primary Igor E11.9 Type 2 diabetes 2:30p Anya Cruz MD mellitus without complications Office Visit 03/03/2019 [facility] Primary Igor E11.9 Type 2 diabetes 11:30a Anya Cruz MD mellitus without complications R97.20 Elevated prostate specific antigen [PSA] E03.9 Hypothyroidism, unspecified I10 Essential (primary) hypertension Office Visit 12/03/2018 [facility] Primary Igor E11.9 Type 2 diabetes 4:00p Anya Cruz MD mellitus without complications R97.20 Elevated prostate specific antigen [PSA] D51.9 Vitamin B12 deficiency anemia, unspecified Assessments Date Code Description Provider 05/29/2019 E08.10 Diabetes mellitus due to underlying Igor Cruz MD condition with ketoacidosis without coma 05/29/2019 D64.9 Anemia, unspecified Igor Cruz MD 05/26/2019 I25.729 Atherosclerosis of autologous artery Franny Silva M.D. coronary artery bypass graft(s) with unspecified angina pectoris 05/26/2019 E08.10 Diabetes mellitus due to underlying Franny Silva M.D. condition with ketoacidosis without coma 05/26/2019 I25.2 Old myocardial infarction Franny Silva M.D. 05/26/2019 I25.5 Ischemic cardiomyopathy Franny Silva M.D. 05/26/2019 R11.0 Nausea Franny Silva M.D. 05/26/2019 I10 Essential (primary) hypertension Franny Silva M.D. 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 04/30/2019 I50.9 Heart failure, unspecified Traveling ECHO 1 04/08/2019 I21.4 Non-St elevation (Nstemi) myocardial Shelley S. Foster, N.P. infarction 04/08/2019 Z95.1 Presence of aortocoronary bypass Shelley S. Foster, N.P. graft 04/08/2019 I25.10 Atherosclerotic heart disease of Shelley S. Foster, N.P. curyung coronary artery with 04/08/2019 I10 Essential (primary) hypertension Shelley S. Foster, N.P. 04/08/2019 I50.9 Heart failure, unspecified Shelley S. Foster, N.P. 04/08/2019 I48.0 Paroxysmal atrial fibrillation Shelley S. Foster, N.P. 03/28/2019 R94.31 Abnormal electrocardiogram [ECG] Jaycob Jefferson M.D. [EKG] 03/28/2019 E11.10 Type 2 diabetes mellitus with Shelley S. Foster, N.P. ketoacidosis without coma 03/28/2019 I21.4 Non-St elevation (Nstemi) myocardial Shelley S. Foster, N.P. infarction 03/28/2019 E03.9 Hypothyroidism, unspecified Shelley S. Foster, N.P. 03/28/2019 I25.10 Atherosclerotic heart disease of Shelley S. Foster, N.P. curyung coronary artery with 03/28/2019 I50.9 Heart failure, unspecified Shelley S. Foster, N.P. 03/28/2019 I48.0 Paroxysmal atrial fibrillation Shelley S. Foster, N.P. 03/28/2019 Z95.1 Presence of aortocoronary bypass Shelley S. Foster, N.P. graft 03/27/2019 E11.10 Type 2 diabetes mellitus with Igor Cruz MD ketoacidosis without coma 03/27/2019 E03.9 Hypothyroidism, unspecified Igor Cruz MD 03/26/2019 E11.10 Type 2 diabetes mellitus with Frantz Pizano MD ketoacidosis without coma 03/26/2019 I21.4 Non-St elevation (Nstemi) myocardial Frantz Pizano MD infarction 03/26/2019 E03.9 Hypothyroidism, unspecified Frantz Pizano MD 03/12/2019 E11.10 Type 2 diabetes mellitus with Isreal Melchor M.D.,FACP ketoacidosis without coma 03/12/2019 I21.4 Non-St elevation (Nstemi) myocardial Isreal Melchor M.D.,FACP infarction 03/12/2019 E03.9 Hypothyroidism, unspecified Isreal Melchor M.D.,FACP 03/11/2019 E11.10 Type 2 diabetes mellitus with Isreal Melchor M.D.,FACP ketoacidosis without coma 03/11/2019 R07.9 Chest pain, unspecified Jaycob Jefferson M.D. 03/11/2019 I21.4 Non-St elevation (Nstemi) myocardial Isreal Melchor M.D.,FACP infarction 03/11/2019 I21.4 Non-St elevation (Nstemi) myocardial Cindi Go MD, FAC, infarction [facility]SC[facility] 03/11/2019 E03.9 Hypothyroidism, unspecified Isreal Melchor M.D.,FACP 03/11/2019 I25.10 Atherosclerotic heart disease of Cindi Go MD, FAC, curyung coronary artery with FSCAI 03/11/2019 E11.10 Type 2 diabetes mellitus with Frantz Pizano MD ketoacidosis without coma 03/11/2019 I21.4 Non-St elevation (Nstemi) myocardial Luba Thurman NP infarction 03/11/2019 I21.4 Non-St elevation (Nstemi) myocardial Frantz Pizano MD infarction 03/11/2019 I50.9 Heart failure, unspecified Luba Thurman NP 03/11/2019 E11.9 Type 2 diabetes mellitus without Luba Thurman NP complications 03/11/2019 I10 Essential (primary) hypertension Luba Thurman NP 03/10/2019 E11.10 Type 2 diabetes mellitus with Isreal Melchor M.D.,[facility] ketoacidosis without coma 03/10/2019 R07.89 Other chest pain Franny Silva M.D. 03/10/2019 I21.4 Non-St elevation (Nstemi) myocardial Isreal Melchor M.D.,FACP infarction 03/10/2019 R79.89 Other specified abnormal findings of Franny Silva M.D. blood chemistry 03/10/2019 E03.9 Hypothyroidism, unspecified Isreal Melchor M.D.,FACP 03/10/2019 E11.10 Type 2 diabetes mellitus with Franny Silva M.D. ketoacidosis without coma 03/10/2019 R94.31 Abnormal electrocardiogram [ECG] Franny Silva M.D. [EKG] 03/04/2019 E11.9 Type 2 diabetes mellitus without Igor Cruz MD complications 03/03/2019 E11.9 Type 2 diabetes mellitus without Igor Cruz MD complications 03/03/2019 R97.20 Elevated prostate specific antigen Igor Cruz MD [PSA] 03/03/2019 E03.9 Hypothyroidism, unspecified Igor Cruz MD 03/03/2019 I10 Essential (primary) hypertension Igor Cruz MD 01/24/2019 D51.9 Vitamin B12 deficiency anemia, Nurse Schedule Loc 73 unspecified 12/03/2018 E11.9 Type 2 diabetes mellitus without Igor Cruz MD complications 12/03/2018 R97.20 Elevated prostate specific antigen Igor Cruz MD [PSA] 12/03/2018 D51.9 Vitamin B12 deficiency anemia, Igor Cruz MD unspecified Plan of Treatment Future Appointment(s):07/03/2019 11:30 am - Igor Cruz MD at [facility]07/25/2019 3:30 pm - Franny Silva M.D. at [facility]06/13/2019 1:30 pm - Franny Silva M.D. at [facility]2018 1:00 pm - Ica ECHO Schedule at [facility]07/08/2019 12:40 pm - Frantz Pizano MD at [facility]05/29/2019 - Igor Cruz MDE08.10 Diabetes mellitus due to underlying condition with ketoacidosis without comaNew Labs:Comp Metabolic Panel, Ordered: Hemoglobin A1c (Glyco HGB), Ordered: 05/29/19D64.9 Anemia, unspecifiedNew Labs :CBC Auto Diff, Ordered: 05/29/19 Functional Status Description No Information Available Mental Status Description No Information Available Referrals Description No Information Available
[2019-06-25] MEDS ORDERED: Acetaminophen TAB* 325 MG PO PRN (19:19)
[2019-06-25] MEDS ORDERED: Dextrose 50% VIAL 50 ml IV PUSH PRN (19:50)
[2019-06-25] MEDS ORDERED: Nitroglycerin TAB 0.4 MG* 0.4 MG TAB SL PRN (20:17)
--- NOTE | 2019-06-25 22:12 | CONS ---
CC: Dr. Cruz; Dr. Franny Silva; hospitalist CARDIOLOGY CONSULTATION: DATE OF CONSULT: 06/25/19 REASON FOR CONSULTATION: Elevated troponins and abnormal stress test. CHIEF COMPLAINT: The patient's chief complaint is nausea and profound fatigue. HISTORY OF PRESENT ILLNESS: Mr. Kimble is a 64-year-old gentleman followed by myself. He has known atherosclerotic heart disease. In February of this year, was found with multivessel coronary disease and underwent multivessel bypass surgery. I last saw him in May and he had been hospitalized on 05/19/19 because of nausea, shortness of breath, and fatigue, but this was following alcohol and overeating and his ER visit in [facility] showed some mild DKA. In the office at that time, I had lowered his Cartia dose from 240 mg a day to 180 mg a day and had been planning on weaning this further. The patient states that he had started cardiac rehab at [facility] that seemed to going well, but yesterday morning, awoke feeling very nauseated, fatigued, not himself, decided not to go to rehab, then could barely walk in [facility] and presented to [facility] for evaluation (06/24/19). Evaluation there revealed he was mildly dehydrated with a BUN of 30. His sugars were up. His troponins were mildly elevated at 0.4. The patient was found to be hypotensive as well with a blood pressure 93/62. The patient's lowest blood pressure was documented 85/53. Heart rate of 73 and it appears his calcium channel saul was stopped. The patient underwent chemical stress test that revealed an ejection fraction of 38%, reversible ischemia in the LAD territory, and an inferior wall scar. The patient is currently feeling better with improvement in nausea. He has some chest awareness that he thinks might even be his muscles but he is very vague about it. He denies orthopnea or PND. He thinks the weakness has improved. PAST MEDICAL HISTORY: The patient has a past medical history of: 1. Type 2 diabetes. 2. DKA in the past. 3. Coronary artery disease (catheterization on 07/12/19 showed left main clean , LAD 75% proximal occlusion, circumflex nondominant with 40% to 50% occlusion, and a large OM with 50% to 60% occlusion, and a third marginal with a 50% to 60 % occlusion, occluded RCA with collateral flow from the circumflex and septum. CABG on 03/12/19 with a HI to the LAD, vein graft to a diagonal, vein graft to OM1, OM2, and vein graft to the PDA). 4. Hypertension. 5. Dyslipidemia. 6. Benign prostatic hypertrophy. 7. B12 deficiency. 8. Anxiety. 9. Ischemic cardiomyopathy. 10. Hypothyroid disease. 11. Paroxysmal AFib (post bypass). MEDICATIONS: Outpatient medications had included: 1. Jardiance 10 mg a day. 2. Eliquis 5 mg b.i.d. 3. Metoprolol 100 mg b.i.d. 4. Irbesartan 75 mg a day. 5. Levothyroxine 150 mcg a day. 6. B12 injections. 7. Doxazosin 8 mg a day. 8. Cialis 20 mg p.r.n. 9. Atorvastatin 40 mg a day. 10. Aspirin 81 mg a day. 11. Cartia XT 180 mg a day. 12. Trulicity weekly. 13. Toujeo 35 units at bedtime. Medications on transfer based on discharge summary include: 1. Nitroglycerin p.r.n. 2. Metoprolol 50 mg b.i.d. 3. Diltiazem 180 mg a day. 4. Levothyroxine 150 mcg a day. 5. Aspirin 81 mg a day. 6. Avapro 75 mg a day. 7. Lipitor 40 mg a day. 8. Eliquis 5 mg b.i.d. 9. Protonix 40 mg a day. 10. Insulin sliding scale. 11. Zofran p.r.n. 12. Tylenol p.r.n. ALLERGIES: He has no documented medication allergies. FAMILY HISTORY: Positive for early atherosclerotic heart disease, father coronary disease, age 54. Mother of heart disease of some sort with a murmur. 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 Former smoker, quit 30 years ago. The patient admits to occasional alcohol use in the past; his states regular glass of wine a night. REVIEW OF SYSTEMS: Review of systems performed was negative for recent medication changes other than the diltiazem in my office a month ago. He denies orthopnea. He said he thinks he had sleep apnea in the past, but sleeps on his side now. His does tell me he snores. Positive for the nausea, weakness. PHYSICAL EXAM: Vital Signs: On transfer showed blood pressure 138/77, pulse was 77, oxygen saturation 98%. He is 6 feet 1 inch. General Appearance: Lean , fit- appearing older middle-aged gentleman, lying at 20 degrees, comfortable, psychologically pleasant and cooperative. Neurologically, awake, alert, oriented to person and place. I did not check for time. Skin: [place] complexion, warm, dry without cyanosis or rashes. HEENT: Pupils are equal and round. Mucous membranes moist. Neck without increased JVP appreciated. Breath sounds clear in all bautista. No wheezes, rales, or rhonchi. Coronary: S1, S2, regular without murmurs or rubs. Abdomen: No epigastric discomfort. Unable to reproduce chest pain in the thorax either. Lower extremities are free of edema with 2+ posterior tibial pulses and radial pulses. DIAGNOSTIC STUDIES/LAB DATA: Studies at [facility], [facility] Myoview study showed an ejection fraction of 38% post exercise and 60% preexercise with a fixed inferior wall defect and reversible defect in the LAD territory. A 12-lead ECG shows normal sinus rhythm, 73 beats a minute, poor R wave progression and nonspecific ST changes. He has some small narrow Qs in the inferior leads and some unusual coved ST elevation. Echocardiogram done on 06/25/19 showed an ejection fraction of 45% to 50% with akinesis of the inferior wall and hypokinesis of the anterior septal wall. Labs done at [facility] show white count 3.9, hematocrit 37.3, platelets 93. D- dimer 0.43. Glucose 143. Sodium 141, potassium 3.3, chloride 107, magnesium 1.9. Normal transaminases. Hemoglobin A1c of 8.1. Troponin #1 of 0.4, troponin #2 of 0.44. Outpatient lipids reviewed from [facility] chart showed excellent control. IMPRESSION: In summary, Mr. Kimble is a 64-year-old gentleman who developed nausea and weakness on 06/24/19 and was admitted hypotensive. His aggressive hypertensive regimen was lowered with improvement in blood pressure and symptoms. The patient had mild elevation in troponins and stress test and echo both confirmed an inferior wall myocardial infarction and additionally the stress test was concerning showing reversible ischemia in the anterior wall. The patient is only 3 months status post bypass surgery including a HI to the LAD and he has significant atherosclerotic risks of diabetes, hypertension, dyslipidemia. The patient is certainly at risk for type 2/demand ischemia in the inferior wall with heavy collaterals even post bypass and this could have occurred in the setting of over medication and hypotension. The stress test, however, was concerning and that his ejection fraction dropped , his LV dilated and the LAD territory was shown at risk. The patient has been accepted in transfer with aim of cardiac catheterization to evaluate his red devil vessels and graft and additional recommendations will be made at that time. In terms of medical management, I would like to continue to taper him off of diltiazem if able as this is not an ideal drug with an ischemic cardiomyopathy. If additional BP control or vasodilation for angina is required we could replace with amlodipine. We will continue him on irbesartan and beta-saul but titrate to vitals and continue him on a statin. As the patient is in sinus rhythm, we will hold the Eliquis precath. For the patient's diabetes, we will need to adjust his diabetic medications precath and additional recommendations will be made based on preferences of the menagerie superintendent and the patient's clinical course and findings on cath. [id number]/[facility] #: [id number] ERIKA
[2019-06-25] MEDS: Metoprolol Tartrate TAB* 50 mg PO SCH (22:28)
[2019-06-25] MEDS: Insulin LISPRO* 1 UNITS UNIT SUBCUT SCH (22:28)
--- NOTE | 2019-06-25 22:38 | HP ---
CC: Dr. Silva; Dr. Go; Dr. Cruz * HISTORY AND PHYSICAL: DATE OF ADMISSION: 06/25/19 PROVIDER: Kasie Bill NP. PRIMARY CARE PROVIDER: Dr. Cruz. ATTENDING PHYSICIAN WHILE IN THE HOSPITAL: Dr. Demar Steve * (dictated by Kasie Bill NP). CHIEF COMPLAINT: Chest pain, weakness, and nausea. HISTORY OF PRESENT ILLNESS: Mr. Kimble is a 64-year-old gentleman with a past medical history significant for type 2 diabetes, hypothyroid, hypertension, hyperlipidemia, and coronary artery disease, status post 3-vessel CABG in February of 2019, who initially presented to [facility] with the complaints of nausea, weakness. He was feeling fatigued with exertional shortness of breath. Subsequently, the patient underwent a nuclear stress test at [facility], which showed ischemia. There were reversible defects in the territory of the LAD that represented an area of ischemia, also there may be a brody-infarct ischemia in the inferior wall. Inferior wall LA was seen. Abnormal ejection fraction of 38% and transient ischemic dilation. Due to the patient's recent history and positive stress test, [facility] was contacted and Dr. Silva was contacted in regards to transferring the patient for cardiac catheterization. Dr. Silva accepted the patient for consultation. So, the patient was transferred to [facility] for further evaluation. Upon arrival to [facility], the patient does not complain of any chest pain at this time. The patient reports that he has been going to cardiac rehab, Sunday, Sunday, and Sunday, and since his bypass surgery, he noticed that he was not feeling well enough to go to cardiac rehab, so he did not go. He said he went to [facility] to roll picker a few things and when walking from the parking lot into [facility], he developed some shortness of breath and felt weak, which was not his baseline. Due to these feelings, the patient went to [facility] for further evaluation. The patient today reports that the nausea is better. He has no chest pain at the time of evaluation today. In reviewing the chart from [facility], they did decrease his metoprolol from 100 mg p.o. b.i.d. to 50 mg p.o. b.i.d. The patient upon arrival to the floor was seen by Dr. Silva, who has notified Dr. Go of the need for interventional cardiology evaluation. PAST MEDICAL HISTORY: Significant for: 1. Type 2 diabetes. 2. Hypothyroid. 3. Hypertension. 4. Hyperlipidemia. 5. Coronary artery disease, status post bypass in February 2019 in [facility] , three-vessel CABG. 6. LA. 7. Atrial fibrillation post CABG, for which he is on Eliquis. PAST SURGICAL HISTORY: 1. Bypass in February 2019. 2. History of lung biopsy. 3. Cervical discectomy. HOME MEDICATIONS: Include: 1. Jardiance 10 mg p.o. daily. 2. Eliquis 5 mg p.o. b.i.d. 3. Metoprolol 100 mg 1 tablet twice daily. 4. Irbesartan 75 mg p.o. daily. 5. Levothyroxine 150 mcg p.o. daily. 6. Trulicity 1.5 mg p.o. daily. 7. Doxazosin 8 mg p.o. daily. 8. Cialis 20 mg as needed. 9. Toujeo 35 units at bedtime. 10. Atorvastatin 40 mg once daily. 11. Aspirin 81 mg p.o. daily. 12. Cartia XT 240 mg one tablet p.o. daily. ALLERGIES: No known drug allergies. FAMILY HISTORY: Mother due to heart disease. Father with a history of diabetes. No reported history of cancer. SOCIAL HISTORY: The patient reports that he is a prior smoker. He quit smoking approximately 24 years ago. Prior to that, he smoked a pack a day for approximately 20 years. Alcohol, he does report he drinks 2 glasses of wine, 3 to 4 days a week. Denies any illicit drug use. Surrogate decision maker in the event he is unable to make his own decisions is his . He is a full code. REVIEW OF SYSTEMS: He denies any nausea, vomiting or diarrhea. Denies any abdominal pain. He currently denies any chest pain. Denies any fever or chills. Denies any cough, hemoptysis. He does report some exertional shortness of breath. Denies any nausea, vomiting, diarrhea, abdominal pain, hematuria, dysuria, focal weakness or sensory loss. Denies any visual complaints, dysphagia, arthralgias, myalgias. Denies any rashes, lesions or open sores, psychosis or anxiety. PHYSICAL EXAMINATION GENERAL: At this time, Mr. Kimble is alert and oriented, resting on the stretcher in his hospital room. He is in no acute distress. VITAL SIGNS: Blood pressure 143/91, heart rate is 74, respirations are 20, O2 saturation 99%, temperature was 97.1. HEENT: Head is atraumatic, normocephalic. Eyes: EOMs are intact. Sclerae anicteric and not pale. Oral mucosa appeared to be moist. NECK: Supple. LUNGS: Clear to auscultation bilaterally. No wheezes, rales or rhonchi. CARDIAC: S1, S2. Regular rate and rhythm. No rubs or gallops. ABDOMEN: Soft and nontender. Bowel sounds are present x4. EXTREMITIES: He is able to move all 4 extremities. Pedal pulses are +2 bilaterally. There is no clubbing or cyanosis. NEUROLOGIC: He is awake, alert, and oriented x3. His speech is clear. Thought process is intact. There are no gross focal deficits. SKIN: Intact. DIAGNOSTIC STUDIES/LAB DATA: Lab work from 06/25/19 from [facility]; WBCs were 3.9, RBCs 4.38, hemoglobin 12.7, hematocrit 37.3, platelet count 93. Glucose this morning was 40, repeat at 12 noon today was 143. BUN was 22, creatinine 1.0. Sodium 141, potassium 3.3, chloride 107, carbon dioxide was 24 , anion gap was 10, calcium was 7.9, magnesium 1.9, albumin was 3.1, ASTs were 15, ALTs were 20, alkaline phos was 78. He had a hemoglobin A1c on 06/24/19 that was 8.1. Troponin on 06/24/19 at 0300 was 0.044. Nuclear stress: The patient did have a nuclear stress, report showed ischemia. There was reversible defect in the territory of the LAD that may represent an area of ischemia, also there may be a brdoy-infarct ischemia in the inferior wall , inferior wall LA was seen, wall motion abnormal with the ejection fraction of 38% and transient ischemic dilation. This was a Lexiscan nuclear stress test. He had an echocardiogram, which showed akinesis of the base of the inferior wall , hypokinesis of the anteroseptal wall, estimated ejection fraction 45 to 50%. Lipid profile was completed on 04/15/19. At that time, his cholesterol was 90, HDL was 41.9, LDL was 39, triglycerides were 47. ASSESSMENT AND PLAN: Mr. Kimble is a 64-year-old gentleman with a past medical history significant for diabetes type 2; hypothyroid; hypertension; hyperlipidemia; coronary artery disease, status post bypass in February 2019; atrial fibrillation status post bypass, now on chronic Eliquis, who originally presented to [facility] with the complaints of weakness and nausea. He had a positive nuclear Lexiscan stress test and was transferred to [facility] for further evaluation and cardiac catheterization. Due to these findings, Hospital Medicine was asked to see and evaluate the patient. He will be admitted inpatient for: 1. Chest pain, weakness, nausea. The patient did have a positive Lexiscan nuclear stress test. He was sent to [facility] for further evaluation and an evaluation by Interventional Cardiology. He was seen by Dr. Silva and consultation has been made to Dr. Go from interventional cardiology.. We will hold his Eliquis this evening as the the patient will have a cardiac catheterization in the morning. We will continue on his metoprolol 50 mg p.o. b.i.d. We will change his Cardizem to Cardizem p.o. 30 mg q.6 hours. He will be n.p.o. after midnight. We will hold his Eliquis this evening. Cardiac catheterization orders per Dr. Silva and Dr. Go. 2. Hypothyroid. The patient will continue levothyroxine 150 mcg p.o. daily. 3. Type 2 diabetes. I am going to hold the patient's Toujeo, Trulicity, and Jardiance. I will place him on fingersticks a.c. and at bedtime with a.c. lispro sliding scale. 4. Hypertension. The patient will continue on metoprolol b.i.d. and Cardizem. 5. Coronary artery disease. I will continue on his Cardizem, metoprolol, and atorvastatin. 6. FEN. He can have a heart-healthy diet this evening. He will be n.p.o. after midnight. 7. Code status. He is a full code. 8. DVT prophylaxis. The patient does take Eliquis. We will hold this evening dose due to cardiac catheterization in the a.m. TIME SPENT: Time spent on this admission was 60 minutes, greater than half that time was spent at the bedside reviewing events leading thus far to his hospitalization, performing physical exam, and reviewing my plan of care. I have discussed this with my attending, Dr. Demar Steve, he is in agreement with my plan. KASIE BILL, DYLAN [id number]/[facility] #: [id number] ERIKA
[2019-06-25] MEDS: Diltiazem TAB* 30 MG PO SCH (23:15)
[2019-06-26] MEDS: Diltiazem TAB* 30 MG PO SCH ×4 (05:17→23:17)
[2019-06-26 05:53] LABS: INR 1.21 (0.82-1.09)
[2019-06-26 05:54] LABS: Hematocrit 38 % (42-52); Hemoglobin 12.8 g/dL (14.0-18.0); Mean Corpuscular HGB Conc 34 g/dL (31-36); Mean Corpuscular Hemoglobin 29 pg (27-31); Mean Corpuscular Volume 85 fL (80-94); Red Blood Count 4.48 10^6 /uL (4.18-5.48); Red Cell Distribution Width 16 % (10-15); White Blood Count 3.2 10^3/uL (3.5-10.8)
[2019-06-26 06:07] LABS: Troponin I 0.03 ng/mL (<0.04)
[2019-06-26 06:12] LABS: BUN/Creatinine Ratio 15.3 (8-20); Calcium 8.8 mg/dL (8.6-10.3); EGFR Non-African American 109.9 (>60); Potassium 3.2 mmol/L (3.5-5.0)
[2019-06-26 06:52] LABS: ABS Eosinophils 0.1 10^3/ul (0-0.6); ABS Monocytes 0.3 10^3/ul (0-0.8); ABS Neutrophils 1.8 10^3/ul (1.5-7.7); Eosinophil % 2.4 %; Lymphocyte % 32.2 %; Mean Platelet Volume 8.2 fL (7.4-10.4); Nucleated Red Blood Cells % 0.2; Platelet Count 88 10^3/uL (150-450)
[2019-06-26] MEDS ORDERED: Insulin LISPRO* 1 UNITS UNIT SUBCUT SCH (07:30)
[2019-06-26] MEDS ORDERED: NS 0.9% 1000 ML** 1,000 ML IV SCH ×2 (08:00→11:45)
[2019-06-26] MEDS ORDERED: Potassium Chlor TAB* 20 MEQ TAB.ER PO ONE ×2 (08:15→14:00)
[2019-06-26] MEDS: Insulin LISPRO* 1 UNITS UNIT SUBCUT SCH ×4 (08:48→21:04)
[2019-06-26] MEDS: Metoprolol Tartrate TAB* 50 mg PO SCH ×2 (08:48→20:34)
--- NOTE | 2019-06-26 08:48 | PN ---
<OlmanLuba - Last Filed: 06/26/19 08:41> Subjective Date of Service: 06/26/19 - Abnormal stress test Interval History: No events last night. Patient states he is feeling well. States he has not had anginal equivalent since CABG at the end of February and has been participating in cardiac rehab. He apparently had been feeling weak and now thinks it was related to his BP.No c/o chest pain, dizziness, palpitations or syncope Medications Active Medications: Acetaminophen (Tylenol Tab*) 650 mg PO Q4H PRN PRN Reason: MILD PAIN or TEMP > 100.4 Dextrose (Dextrose 50% Vial 50 Ml*) 25 ml IV PUSH .FOR FS < 60 - SS PRN PRN Reason: FS < 60 Diltiazem HCl (Cardizem Tab*) 30 mg PO Q6HR [facility] Last Admin: 06/26/19 05:17 Dose: 30 mg Sodium Chloride (Ns 0.9% 1000 Ml) 1,000 mls @ 100 mls/hr IV .per rate [facility] Insulin Human Lispro (Humalog*) 0 units SUBCUT ACHS [facility]; Protocol Last Admin: 06/25/19 22:28 Dose: 6 units Metoprolol Tartrate (Lopressor Tab*) 50 mg PO Q12HR [facility] Last Admin: 06/25/19 22:28 Dose: 50 mg Nitroglycerin (Nitroglycerin Tab 0.4 Mg*) 0.4 mg SL Q5M PRN PRN Reason: ANGINA Objective Vital Signs: Temp Pulse Resp BP Pulse Ox 98.2 F 70 18 144/89 98 06/26/19 03:45 06/26/19 03:45 06/26/19 03:45 06/26/19 03:45 06/26/19 03:45 Oxygen Devices in Use Now: None Appearance: lying in bed upon entering the room NAD, A+O x3 Ears/Nose/Mouth/Throat: NL Teeth, Lips, Gums, Clear Oropharnyx, Mucous Membranes Moist Neck: NL Appearance and Movements; NL JVP Respiratory: Symmetrical Chest Expansion and Respiratory Effort, Clear to Auscultation Cardiovascular: NL Sounds; No Murmurs; No JVD, RRR, No Edema Extremities: No Edema Skin: No Rash or Ulcers Neurological: Alert and Oriented x 3 Lines/Tubes/Other Access: Clean, Dry and Intact Peripheral IV Laboratory Results: 06/26/19 05:33 06/26/19 05:33 INR (Anticoag Therapy) 1.21 (0.82-1.09) H 06/26/19 05:33 06/26/19 05:33 Troponin I 0.03 Laboratory Results - last 24 hr 06/25/19 06/26/19 06/26/19 21:09 05:33 05:33 WBC 3.2 L RBC 4.48 Hgb 12.8 L Hct 38 L MCV 85 MCH 29 MCHC 34 RDW 16 H Plt Count 88 L MPV 8.2 Neut % (Auto) 55.6 Lymph % (Auto) 32.2 [place] % (Auto) 8.3 Eos % (Auto) 2.4 Baso % (Auto) 1.5 Absolute Neuts (auto) 1.8 Absolute Lymphs (auto) 1.0 Absolute Monos (auto) 0.3 Absolute Eos (auto) 0.1 Absolute Basos (auto) 0.0 Absolute Nucleated RBC 0.0 Nucleated RBC % 0.2 INR (Anticoag Therapy) Sodium 140 Potassium 3.2 L Chloride 105 Carbon Dioxide 30 Anion Gap 5 BUN 11 Creatinine 0.72 Est GFR ( Amer) 133.0 Est GFR (Non-Af Amer) 109.9 BUN/Creatinine Ratio 15.3 Glucose 74 POC Glucose (mg/dL) Glucose Meter Confirm 267 H Calcium 8.8 Troponin I 0.03 06/26/19 06/26/19 05:33 07:28 WBC RBC Hgb Hct MCV MCH MCHC RDW Plt Count MPV Neut % (Auto) Lymph % (Auto) [place] % (Auto) Eos % (Auto) Baso % (Auto) Absolute Neuts (auto) Absolute Lymphs (auto) Absolute Monos (auto) Absolute Eos (auto) Absolute Basos (auto) Absolute Nucleated RBC Nucleated RBC % INR (Anticoag Therapy) 1.21 H Sodium Potassium Chloride Carbon Dioxide Anion Gap BUN Creatinine Est GFR ( Amer) Est GFR (Non-Af Amer) BUN/Creatinine Ratio Glucose POC Glucose (mg/dL) 115 H Glucose Meter Confirm Calcium Troponin I EKG Data: Telemetry reviewed; Sinus rhythm with rare PVCs no VT rate 60-70's Assessment/Plan #1 Troponinemia with abnormal cardiovascular study suggestive of anterior ischemia; To have LHC today with Dr. Go. Last Eliquis dose was 06/25/2019 (am ). On ASA therapy. Will re order home statin medication. He is s/p CABG February 2019 due to 3VD at that time presentation was NSTEMI with chest pressure. Has not had anginal equivalent since then and has been participating in cardiac rehab with no events. biggest complaint is weakness in the setting of hypotension which has improved. Procedure was reviewed with patient including risks/benefit that include but are not limited to ; bleeding, vessel damage, contrast induced nephropathy, CVA, , infection. He is agreeable to proceeding with [facility]. Consent to be obtained by Dr. Go. Will follow after C. #2 h/o ICM LVEF 40% prior to CABG in February 2019. Appears compensated on exam. 06/25 LVEF 45-50%. On Bblocker therapy. Goal is to taper off of Cardizem. Then is BP allows re evaluate ACEI . #3 h/o HLD on Lipitor 40 QHS. Goal LDL < 70 #4 h/o DM; Defer to primary team #5 Disposition pending course. Patient to have C , Will give addition K Dur 40MEQ later today and follow. d/w Dr. Jefferson who agrees with plan. Attending: Jaycob Jefferson <Jaycob Jefferson - Last Filed: 06/26/19 17:26> Medications Active Medications: Acetaminophen (Tylenol Tab*) 650 mg PO Q4H PRN PRN Reason: MILD PAIN or TEMP > 100.4 Apixaban (Eliquis*) 5 mg PO BID [facility] Aspirin (Aspirin Ec Tab*) 81 mg PO DAILY [facility] Last Admin: 06/26/19 14:37 Dose: 81 mg Atorvastatin Calcium (Lipitor*) 40 mg PO 2100 [facility] Dextrose (Dextrose 50% Vial 50 Ml*) 25 ml IV PUSH .FOR FS < 60 - SS PRN PRN Reason: FS < 60 Diltiazem HCl (Cardizem Tab*) 30 mg PO Q6HR [facility] Last Admin: 06/26/19 12:24 Dose: 30 mg Doxazosin Mesylate (Cardura Tab*) 8 mg PO BEDTIME [facility] Empagliflozin (Jardiance (Nf)) 10 mg PO BEDTIME [facility] Insulin Human Lispro (Humalog*) 0 units SUBCUT ACHS [facility]; Protocol Last Admin: 06/26/19 14:37 Dose: 6 units Isosorbide Mononitrate (Imdur Er Tab*) 30 mg PO DAILY [facility] Last Admin: 06/26/19 14:37 Dose: 30 mg Levothyroxine Sodium (Synthroid Tab*) 150 mcg PO DAILY@0600 [facility] Metoprolol Tartrate (Lopressor Tab*) 50 mg PO Q12HR [facility] Last Admin: 06/26/19 08:48 Dose: 50 mg Nitroglycerin (Nitroglycerin Tab 0.4 Mg*) 0.4 mg SL Q5M PRN PRN Reason: ANGINA Objective Vital Signs: Temp Pulse Resp BP Pulse Ox 98.6 F 70 16 140/95 100 06/26/19 16:55 06/26/19 16:55 06/26/19 16:55 06/26/19 16:55 06/26/19 16:55 Laboratory Results: 06/26/19 05:33 06/26/19 05:33 INR (Anticoag Therapy) 1.21 (0.82-1.09) H 06/26/19 05:33 06/26/19 05:33 Troponin I 0.03 Assessment/Plan 06.26.2019 5:22 PM: Pt had cardiac cath as per Dr Go-please refer to a full report. In summary severe [place] CAD and occluded HI and SVGs. lengthy discussion with Shira Valadez and hospitalist about clinical care plan. Dr Go discussed cath with interventional services at [facility]. Plan for outpatient PCI/ stent to severe [place] LAD stenosis. Maximize medical Rx for now as BP allows.
[2019-06-26] MEDS ORDERED: Heparin 2 UNITS/ML IVPREMIX* 2,000 ML IV ONE (09:23)
[2019-06-26] MEDS ORDERED: Lidocaine 1% INJ* 10 MG/ML 30 ML SDV ONE (09:24)
[2019-06-26] MEDS ORDERED: Iohexol 350 (CONTRAST) 200 ML MDV IV ONE ×2 (09:24→10:30)
[2019-06-26] MEDS ORDERED: fentaNYL* 50 MCG/ML 2 ML VIAL (100 MCG VIAL) ONE (09:46)
[2019-06-26] MEDS ORDERED: Midazolam* 1 MG/ML 5 ML VIAL (5 MG) ONE (09:47)
--- NOTE | 2019-06-26 14:32 | PN ---
Subjective Date of Service: 06/26/19 Interval History: Patient seen post cardiac cath on 4 south room 34. I did discuss with Dr. Go Cath results. Unfortunately, his Bypass vessel seems to have occluded and was no amenable for PCI. He recommended maximize medical therapy and follow up outpatient with his brick setter Dr. Silva for outpatient cardiac MRI and viability study. I also discussed with Dr. Jaycob Jefferson covering for Dr. Silva and He agrees with the plan. However; given his BP today being SBP 160's-180's and DBP 90's-110's Dr. Jefferson recommended slow release nitro if BP allows. Patient himself denies any chest pain. Remain on tele and bed rest given his recent right fem-cath. Past Medical History: Unchanged from Admission Objective Active Medications: Acetaminophen (Tylenol Tab*) 650 mg PO Q4H PRN PRN Reason: MILD PAIN or TEMP > 100.4 Aspirin (Aspirin Ec Tab*) 81 mg PO DAILY [facility] Atorvastatin Calcium (Lipitor*) 40 mg PO 2100 [facility] Dextrose (Dextrose 50% Vial 50 Ml*) 25 ml IV PUSH .FOR FS < 60 - SS PRN PRN Reason: FS < 60 Diltiazem HCl (Cardizem Tab*) 30 mg PO Q6HR [facility] Last Admin: 06/26/19 12:24 Dose: 30 mg Doxazosin Mesylate (Cardura Tab*) 8 mg PO BEDTIME [facility] Empagliflozin (Jardiance (Nf)) 10 mg PO BEDTIME [facility] Insulin Human Lispro (Humalog*) 0 units SUBCUT ACHS [facility]; Protocol Last Admin: 06/26/19 08:48 Dose: Not Given Isosorbide Mononitrate (Imdur Er Tab*) 30 mg PO DAILY [facility] Levothyroxine Sodium (Synthroid Tab*) 150 mcg PO DAILY@0600 [facility] Metoprolol Tartrate (Lopressor Tab*) 50 mg PO Q12HR [facility] Last Admin: 06/26/19 08:48 Dose: 50 mg Nitroglycerin (Nitroglycerin Tab 0.4 Mg*) 0.4 mg SL Q5M PRN PRN Reason: ANGINA Non-Formulary Medication (Apixaban [Eliquis]) 5 mg PO BID [facility] Vital Signs - 8 hr 06/26/19 06/26/19 06/26/19 08:00 08:50 11:13 Temperature 97.9 F Pulse Rate 62 68 Respiratory 16 18 14 Rate Blood Pressure 130/71 (mmHg) O2 Sat by Pulse 99 99 Oximetry 06/26/19 06/26/19 06/26/19 11:14 11:29 11:44 Temperature Pulse Rate 69 68 65 Respiratory 13 14 Rate Blood Pressure 167/112 174/98 178/98 (mmHg) O2 Sat by Pulse 96 98 95 Oximetry 06/26/19 06/26/19 06/26/19 11:59 12:00 12:14 Temperature Pulse Rate 70 69 60 Respiratory 20 16 11 Rate Blood Pressure 174/101 184/104 (mmHg) O2 Sat by Pulse 99 99 97 Oximetry 06/26/19 06/26/19 06/26/19 12:18 12:29 12:30 Temperature Pulse Rate 71 71 73 Respiratory 14 16 21 Rate Blood Pressure 167/101 185/108 177/104 (mmHg) O2 Sat by Pulse 98 99 97 Oximetry 06/26/19 06/26/19 06/26/19 12:44 12:59 13:00 Temperature Pulse Rate 66 70 Respiratory 22 11 15 Rate Blood Pressure 163/100 161/97 (mmHg) O2 Sat by Pulse 99 98 Oximetry 06/26/19 13:49 Temperature 97.8 F Pulse Rate 66 Respiratory 16 Rate Blood Pressure 156/91 (mmHg) O2 Sat by Pulse 98 Oximetry Oxygen Devices in Use Now: None Appearance: awake, alert. no distress Eyes: No Scleral Icterus, PERRLA, - - EOMI Ears/Nose/Mouth/Throat: NL Teeth, Lips, Gums Neck: NL Appearance and Movements; NL JVP, Trachea Midline Respiratory: Symmetrical Chest Expansion and Respiratory Effort, Clear to Auscultation Cardiovascular: NL Sounds; No Murmurs; No JVD, RRR, No Edema Abdominal: NL Sounds; No Tenderness; No Distention Extremities: No Edema Skin: No Rash or Ulcers Neurological: Alert and Oriented x 3, NL Muscle Strength and Tone Result Diagrams: 06/26/19 05:33 06/26/19 05:33 Assess/Plan/Problems-Billing Assessment: 64 y/o male history of DM, CAD s/p CABG in 02/2019 transferred from [facility] secondary to positive troponin underwent cardiac cath by Dr. Sherman and was found to have occluded graft (official cath report pending) - Patient Problems (1) CAD (coronary artery disease) of bypass graft Current Visit: Yes Status: Acute Code(s): I25.810 - ATHEROSCLEROSIS OF CABG W/O ANGINA PECTORIS SNOMED Code(s): 755446856 Comment: - s/p cardiac cath revealed occluded graft vessels (s/p CABG in 2018) - Continue maximal medical therapy: *Lopressor 50 mg bid *Lipitor 40 mg HS *Cardizem 30 mg PO Q6h (transitioned from cardizem CD 180 mg) * ASA 81 mg Daily * Jardiance 10 mg HS - Plan to discharge home in am pending his BP tolerance to isosorbide. Will arrange close follow up with Dr. Silva *Will add isosorbide 30 mg PO Daily to maximize antianginal drug and will hold irbesartan 75 mg to make sure his BP remain stable (he was hypotensive at [place]) (2) Diabetes Current Visit: Yes Status: Acute Code(s): E11.9 - TYPE 2 DIABETES MELLITUS WITHOUT COMPLICATIONS SNOMED Code(s): 75426633 Comment: - Currently on Sliding scale. - I will add lantus 30 units inpatient resume trulicity and toujeo ??? 300 units (I am questioning his reported dose) as outpatient. - Resumed Jardiance 10 mg HS (3) Hypertension Current Visit: Yes Status: Acute Code(s): I10 - ESSENTIAL (PRIMARY) HYPERTENSION SNOMED Code(s): 47783316 Comment: - His BP today being SBP 160's-180's and DBP 90's-110's - He Remains on tele and bed rest given his recent right fem-cath. I will continue his *Lopressor 50 mg bid *Cardizem 30 mg PO Q6h (transitioned from cardizem CD 180 mg) * Added Isosorbide 30 mg Daily as per Dr. Jaycob Jefferson covering for Dr. Silva to maximize anti-anginal drug and I will hold irbesartan 75 mg to make sure his BP remain stable (he was hypotensive at [place]) - On cardura 8 mg HS (4) Hyperlipidemia Current Visit: Yes Status: Acute Code(s): E78.5 - HYPERLIPIDEMIA, UNSPECIFIED SNOMED Code(s): 52429909 Comment: - Continue atorvastatin 40 mg HS (5) Afib Current Visit: Yes Status: Acute Code(s): I48.91 - UNSPECIFIED ATRIAL FIBRILLATION SNOMED Code(s): 03277482 Comment: - Currently in sinus - But he did have Post cath afib, currently on Eliquis and lopressor 50 mg bid (6) Hypothyroidism Current Visit: No Status: Acute Priority: Medium Code(s): E03.9 - HYPOTHYROIDISM, UNSPECIFIED SNOMED Code(s): 46902347 Comment: - continue levothyroxine (7) DVT prophylaxis Current Visit: No Status: Acute Priority: Low Code(s): Z29.9 - ENCOUNTER FOR PROPHYLACTIC MEASURES, UNSPECIFIED SNOMED Code(s): 519085766 Comment: - On Eliquis
[2019-06-26] MEDS: Aspirin EC TAB* 81 MG TAB.EC PO SCH (14:37)
[2019-06-26] MEDS: Isosorbide Mononitrate ER TAB* 30 MG PO SCH (14:37)
[2019-06-26] MEDS ORDERED: Insulin GLARGINE(*) 1 UNITS UNIT SUBCUT SCH (18:00)
[2019-06-26] MEDS: Apixaban* 5 MG TAB PO SCH (20:34)
[2019-06-26] MEDS ORDERED: Empaglifozin (NF) 10 MG TABLET PO SCH (21:00)
[2019-06-26] MEDS ORDERED: Doxazosin TAB* 2 MG PO SCH (21:00)
[2019-06-26] MEDS ORDERED: Atorvastatin* 40 MG TAB PO SCH (21:00)
--- NOTE | 2019-06-26 22:03 | CATH ---
CC: Dr. Cruz; Dr. Silva; Dr. Almanza * CATH REPORT: DATE OF PROCEDURE: 06/26/19 - ROOM #[id number] PRIMARY CARE PHYSICIAN: Dr. Cruz. RISK CONTROL PRODUCT LIABILITY DIRECTOR: Dr. Sivla. PROCEDURES: Right femoral artery access, HI angiography, saphenous vein graft angiography, bilateral selective coronary angiography, left heart catheterization, aortic root angiography. HISTORY: A 64-year-old diabetic with bypass grafting February 2019 for non-ST elevation infarct presentation with diabetes, 3-vessel coronary artery disease with impaired LV systolic function. He underwent bypass grafting by Dr. Pimentel with a HI to the LAD, saphenous vein graft to a diagonal, saphenous vein graft sequenced to two marginal branches, and a saphenous vein graft to the RPDA. Yesterday, he presented to [place] with nausea and weakness, was found to be hypotensive, troponin of 0.4. Nuclear imaging reported LAD distribution ischemia. He was transferred here for further evaluation. PROCEDURE ACCESS: Right femoral artery. SHEATH: 6.5-[place]. DIAGNOSTIC CATHETERS: 6F JONAH, 6FL4, 6FMP, 6FLCB. MEDICATIONS: 1. Subcu lidocaine. 2. IV Versed. 3. IV fentanyl. HEMODYNAMICS: Initial AO 162/76, LV 162/5 - 24, no aortic valve gradient on pullback. ANGIOGRAPHY: RFA sheath entry is in segment 2, there is no stenosis. HI. The JONAH is relatively small, it is occluded a few centimeters from the origin. RCA. The RCA is dominant, moderate size, as before it is occluded at the acute margin. There is right to right collateral filling of an acute marginal branch , which supplies part of the inferior septum, as well as the right continuation in the AV groove where there is competitive flow. Saphenous vein graft. There is vein graft adjacent to several clip markers, it is occluded essentially at the origin. Saphenous vein graft #2. It arises somewhat higher from the aorta on the left side, it is essentially occluded with a threadlike short segment that fills with contrast. The RCA vein graft was never identified selectively. Aortic root injection with multipurpose catheter failed to demonstrate any right - sided graft. Left main. The left main is large, normal. LAD. The LAD is moderate, has now 90% proximal stenosis, after which the LAD reconstitutes, more distal LAD is not visualized, presumably there is a high- grade stenosis in the area where the HI was anastomosed. There are transseptal and trans-atrial collaterals to the distal right coronary with filling of the distal posterior lateral branch, which has an end-to-side graft, which fills retrograde, that graft is occluded near the acute margin. The PDA proper is small. Circumflex. The circumflex is moderate, not dominant, has proximal luminal irregularity with 40% stenosis, which is lengthy, followed by a moderate marginal which has an end-to-side graft anastomosis. The graft fills retrograde to a proximal occlusion. There does not appear to be any insertion stenosis. The bridging continuation of the graft to the next marginal gradually tapers and becomes very small, the grafted second marginal branch is very small, does fill from the graft. Ramus. There is a large ramus branch, which is presumably the one branch that was identified as a diagonal and received a bypass graft. It has proximal tubular 50% stenosis. Aortic root injection. CIERRA aortic root injection with 40 cc of contrast over 2 seconds demonstrates no venous bypass graft. CONCLUSION: 1. Three-vessel disease with bypass grafting 2 months prior, with occlusion of all grafts. His case will be reviewed regarding best means of a re- revascularization. 2. The right femoral artery was closed with Angio-Seal. 3. Elevated left ventricular diastolic pressure suggestive of diastolic dysfunction. [id number]/[facility] #: [id number] ERIKA
[2019-06-27 03:50] VITALS: BP 114/67
[2019-06-27] MEDS: Diltiazem TAB* 30 MG PO SCH (05:13)
[2019-06-27] MEDS ORDERED: Levothyroxine TAB* 150 MCG TAB PO SCH (06:00)
[2019-06-27 06:05] LABS: ABS Eosinophils 0.1 10^3/ul (0-0.6); ABS Lymphocytes 1.1 10^3/ul (1.0-4.8); ABS Monocytes 0.3 10^3/ul (0-0.8); Eosinophil % 2.2 %; Hematocrit 37 % (42-52); Hemoglobin 12.6 g/dL (14.0-18.0); Lymphocyte % 32.6 %; Mean Corpuscular HGB Conc 34 g/dL (31-36); Mean Corpuscular Hemoglobin 29 pg (27-31); Mean Corpuscular Volume 85 fL (80-94); Mean Platelet Volume 8.9 fL (7.4-10.4); Nucleated Red Blood Cells % 0.1; Platelet Count 85 10^3/uL (150-450); Red Blood Count 4.39 10^6 /uL (4.18-5.48); Red Cell Distribution Width 15 % (10-15); White Blood Count 3.5 10^3/uL (3.5-10.8)
[2019-06-27 06:19] LABS: BUN/Creatinine Ratio 15.1 (8-20); Calcium 8.8 mg/dL (8.6-10.3); EGFR African American 130.9 (>60); EGFR Non-African American 108.2 (>60); Magnesium 1.9 mg/dL (1.9-2.7); Phosphorus 3.4 mg/dL (2.5-5.0); Potassium 3.5 mmol/L (3.5-5.0)
[2019-06-27] MEDS ORDERED: IRBESARTAN 75 MG PO SCH (09:00)
[2019-06-27] MEDS ORDERED: Empaglifozin (NF) 10 MG TABLET PO SCH (09:00)
[2019-06-27] MEDS ORDERED: Aspirin EC TAB* 81 MG TAB.EC PO SCH (09:00)
[2019-06-27] MEDS ORDERED: Doxazosin TAB* 2 MG PO SCH (09:00)
[2019-06-27] MEDS: Insulin LISPRO* 1 UNITS UNIT SUBCUT SCH (09:57)
[2019-06-27] MEDS: Isosorbide Mononitrate ER TAB* 30 MG PO SCH (09:58)
[2019-06-27] MEDS: Aspirin EC TAB* 81 MG TAB.EC PO SCH (09:58)
[2019-06-27] MEDS: Metoprolol Tartrate TAB* 50 mg PO SCH (09:58)
[2019-06-27] MEDS: Apixaban* 5 MG TAB PO SCH (09:58)
--- NOTE | 2019-06-27 14:53 | DS ---
CC: Dr. Go; Dr. Silva; Dr. Igor Cruz DISCHARGE SUMMARY: DATE OF ADMISSION: 06/25/19 DATE OF DISCHARGE: 06/27/19 DISCHARGE DIAGNOSES: 1. Acute coronary syndrome. 2. Hypertension. 3. Hyperlipidemia. 4. Diabetes mellitus. 5. Paroxysmal atrial fibrillation. 6. Hypothyroidism. HOSPITAL COURSE: The patient presented to [facility] on 06/25/19 as a transfer from [facility] due to malaise, fatigue, was associated with borderline troponin, and positive stress te st at [place]. He was transferred to our facility and was accepted by his clinic licensed practical nurse, Dr. Silva , and underwent cardiac cath by Dr. Go on 06/26/19. The patient's cardiac cath shows that his LI MA was small and was occluded a few centimeters from the origin, and the RCA which is moderate size a nd dominant, was also occluded in the acute margin and his saphenous graft also occluded at the origi n, saphenous graft #2 which also was occluded with a thread-like short segment that fills with contra st. Therefore, the patient was deemed to have 3-vessel disease with bypass grafting 2 months with oc clusion of old graft. He was sent back to the ICU, then transferred to the medical floor, and recomm ended to optimize his medical therapy. I discussed the case with Dr. Jefferson. I recommended to greg ximize his anti-angina therapy to continue his metoprolol, continue the Cardizem 30 p.o. q.6 hours as recommended by Dr. Franny Silva, and keep him off the diltiazem extended release and add isosorbide 30 mg daily. The patient was discontinued off the diltiazem. I discontinued his irbesartan due to b orderline hypotension. I did not want to precipitate hypotension by adding isosorbide and he was kep t overnight and he was reassessed this morning. He tolerated the isosorbide and his blood pressure w [facility] was 184/104 prior to initiation of his oral hypertensive medication and was down to 114/67, 119/ 81. Therefore, I evaluated the patient. He has been chest pain free. He was cleared for discharge f rom cardiac point of view. I was able to secure an appointment with Dr. Silva's office this coming Sunday on 07/01/19 at 11:30 a.m. The patient was discussed regarding his medication changes. He wa s advised to remain on complete rest with minimal exertion until he is cleared with his cardiology, Gaurav Silva. DISCHARGE MEDICATIONS: 1. Resume Eliquis 5 b.i.d. 2. Resume aspirin 81 daily. 3. Discontinue diltiazem 180. 4. Replace with diltiazem 30 mg p.o. q.6 hours. 5. Resume Jardiance 10 mg daily. New Medications: 1. Imdur 30 mg daily. 2. Levoxyl 150 mcg daily. 3. Resume Lipitor 40 at bedtime. 4. Resume doxazosin 8 mg daily. 5. Resume Trulicity 1.5 mg weekly. 6. Resume Toujeo 35 units daily. 7. Resume metoprolol 50 mg b.i.d. 8. Discontinue Cialis as he is on isosorbide. INPATIENT DIAGNOSTIC STUDIES: CBC, chemistry fairly unremarkable. INR 1.2. Chemistry: The troponin was negative at our facility, 0.03. Cardiac cath which reveals occluded graft and 3-vessel disease. CONSULTATIONS: Cardiology and Interventional Cardiology. DISCHARGE DISPOSITION: Home. DISCHARGE CONDITION: Stable. [id number]/[facility] #: [id number]
== END 2019-06-27 12:55 | disposition home or self-care (01) | DRG 190 ==
LOC: MEDTELE 18:08 → OBSVTOIN 18:09
PROVIDERS: ADMIT Internal Medicine; ATTEND Internal Medicine
PROC: B211YZZ Fluoroscopy of Multiple Coronary Arteries using Other Contrast (ICD-10-PCS; 2019-06-26)
PROC: B213YZZ Fluoroscopy of Multiple Coronary Artery Bypass Grafts using Other Contrast (ICD-10-PCS; 2019-06-26)
PROC: 4A023N7 Measurement of Cardiac Sampling and Pressure, Left Heart, Percutaneous Approach (ICD-10-PCS; principal; 2019-06-26 09:30)
DX: I21.19 ST elevation (STEMI) myocardial infarction involving other coronary artery of inferior wall (principal); I25.810 Atherosclerosis of coronary artery bypass graft(s) without angina pectoris; I25.5 Ischemic cardiomyopathy; E11.9 Type 2 diabetes mellitus without complications; E03.9 Hypothyroidism, unspecified; I10 Essential (primary) hypertension; E78.5 Hyperlipidemia, unspecified; N14.1 Nephropathy induced by other drugs, medicaments and biological substances; I24.9 Acute ischemic heart disease, unspecified; N40.0 Benign prostatic hyperplasia without lower urinary tract symptoms; I48.0 Paroxysmal atrial fibrillation; E53.8 Deficiency of other specified B group vitamins; Z95.1 Presence of aortocoronary bypass graft; Z79.01 Long term (current) use of anticoagulants; Z79.84 Long term (current) use of oral hypoglycemic drugs; Z79.82 Long term (current) use of aspirin; Z79.899 Other long term (current) drug therapy; Z82.49 Family history of ischemic heart disease and other diseases of the circulatory system; Z83.3 Family history of diabetes mellitus; Z87.891 Personal history of nicotine dependence
CPT/HCPCS: 36415; 80048; 82947; 83735; 84100; 84484; 85025; 85060; 85610; 93459; 93567; 99156; 99157; A9270-GY; C1760; C1887; J1644; J2250; J3010